=== PATIENT | female | born 1960 | race Hispanic/Latino ===

== ENCOUNTER 2020-07-05 17:08 | Inpatient (IN) | payer BC, OTHER ==
[~2020-07-05] VITALS: Ht 157.5 cm; Wt 135.4 kg
[2020-07-05 17:48] LABS: BASOPHILS % 0.3 % (0.0-1.0); EOSINOPHILS % 0.1 % (0.0-6.0); HEMATOCRIT 37.4 % (34.2-44.1); HEMOGLOBIN 12.3 g/dL (12.0-16.0); LYMPHOCYTES # (AUTO) 0.6 (1.0-3.2); LYMPHOCYTES % 8.6 % (18.0-39.1); MEAN CORPUSCULAR HEMOGLOBIN 27.7 pg (28-32); MEAN CORPUSCULAR HGB CONC 32.9 g/dL (31-35); MEAN CORPUSCULAR VOLUME 84.2 fL (81-99); MONOCYTES # (AUTO) 0.5 (0.2-0.8); MONOCYTES % 6.7 % (4.4-11.3); NEUTROPHILS # (AUTO) 5.8 (2.1-6.9); NEUTROPHILS % 83.2 % (38.7-80.0); PLATELET COUNT 229 x10e3/uL (140-360); RED BLOOD COUNT 4.44 x10e6/uL (3.6-5.1); RED CELL DISTRIBUTION WIDTH 13.9 % (11.7-14.4)
[2020-07-05] MEDS ORDERED: ACETAMINOPHEN 325 MG TAB PO ONE (18:00)
[2020-07-05 18:02] LABS: ALANINE AMINOTRANSFERASE 9 IU/L (0-55); ALBUMIN 2.8 g/dL (3.5-5.0); ALBUMIN/GLOBULIN RATIO 0.7 (0.8-2.0); ALKALINE PHOSPHATASE 79 IU/L (40-150); ANION GAP 16.9 mmol/L (8-16); BLOOD UREA NITROGEN 15 mg/dL (7-26); BUN/CREATININE RATIO 16 (6-25); CALCIUM 8.5 mg/dL (8.4-10.2); CARBON DIOXIDE 20 mmol/L (22-29); CHLORIDE 98 mmol/L (98-107); CREATINE KINASE 25 IU/L (29-168); CREATININE, SERUM 0.91 mg/dL (0.57-1.11); EST GLOMERULAR FILTRATION RATE > 60 ML/MIN (60-); GLUCOSE 114 mg/dL (74-118); POTASSIUM 3.9 mmol/L (3.5-5.1); SODIUM 131 mmol/L (136-145)
[2020-07-05] MEDS ORDERED: PANTOPRAZOLE SO40 MG PO (18:16)
[2020-07-05] MEDS ORDERED: SINGULAIR10 MG PO (18:16)
[2020-07-05] MEDS ORDERED: LASIX20 MG PO (18:16)
[2020-07-05] MEDS ORDERED: LISINOPRIL-HCT1 EACH PO (18:16)
[2020-07-05] MEDS ORDERED: CITALOPRAM HBR20 MG PO (18:16)
[2020-07-05] MEDS ORDERED: DECADRON4 M1 PO (18:16)
[2020-07-05] MEDS ORDERED: ONDANSETRON HCL INJ 2MG/ML 2ML 2 MG/ML VIAL IV PRN (19:15)
[2020-07-05] MEDS ORDERED: ACETAMINOPHEN 325 MG TAB PO PRN (19:15)
[2020-07-05] MEDS ORDERED: REMDESIVIR 200MG/NS 100ML 200 MG in SODIUM CHLORIDE 0.9% 100 ML 100 ML IV ONE (19:30)
[2020-07-05] MEDS: AZITHROMYCIN 500MG/NS 250 ML 250 ML IV SCH (20:48)
[2020-07-05 22:05] VITALS: BP 106/69
[2020-07-05 22:34] VITALS: BP 106/69
[2020-07-05] MEDS ORDERED: PNEUMOCOCCAL VACCINE POLYVALENT 23 MCG/0.5 ML VIAL IM SCH (22:46)
[2020-07-05 23:59] VITALS: BP 106/69
[2020-07-06] VITALS (9 sets, daily range): BP systolic 105–125; BP diastolic 55–92
[2020-07-06 06:22] LABS: BASOPHILS % 0.2 % (0.0-1.0); HEMATOCRIT 41.5 % (34.2-44.1); HEMOGLOBIN 13.3 g/dL (12.0-16.0); LYMPHOCYTES # (AUTO) 0.7 (1.0-3.2); LYMPHOCYTES % 11.4 % (18.0-39.1); MEAN CORPUSCULAR HEMOGLOBIN 27.9 pg (28-32); MONOCYTES # (AUTO) 0.4 (0.2-0.8); MONOCYTES % 7.7 % (4.4-11.3); NEUTROPHILS # (AUTO) 4.6 (2.1-6.9); NEUTROPHILS % 79.8 % (38.7-80.0); PLATELET COUNT 221 x10e3/uL (140-360); RED BLOOD COUNT 4.77 x10e6/uL (3.6-5.1); RED CELL DISTRIBUTION WIDTH 13.7 % (11.7-14.4)
[2020-07-06 06:43] LABS: ALANINE AMINOTRANSFERASE 10 IU/L (0-55); ALBUMIN 2.7 g/dL (3.5-5.0); ALBUMIN/GLOBULIN RATIO 0.6 (0.8-2.0); ALKALINE PHOSPHATASE 80 IU/L (40-150); ANION GAP 17.7 mmol/L (8-16); BLOOD UREA NITROGEN 18 mg/dL (7-26); BUN/CREATININE RATIO 20 (6-25); CARBON DIOXIDE 22 mmol/L (22-29); CHLORIDE 101 mmol/L (98-107); CREATININE, SERUM 0.89 mg/dL (0.57-1.11); EST GLOMERULAR FILTRATION RATE > 60 ML/MIN (60-); GLUCOSE 125 mg/dL (74-118); POTASSIUM 4.7 mmol/L (3.5-5.1); SODIUM 136 mmol/L (136-145)
[2020-07-06] MEDS: ASCORBIC ACID 500 MG TAB PO SCH ×2 (11:38→17:45)
[2020-07-06] MEDS: ZINC SULFATE 220 MG CAP PO SCH (11:38)
[2020-07-06] MEDS: PANTOPRAZOLE SOD 40 MG TABEC PO SCH (11:38)
[2020-07-06] MEDS: CITALOPRAM HYDROBROMIDE 20 MG TAB PO SCH (11:38)
[2020-07-06] MEDS: DEXAMETHASONE SOD PHOS INJ 4 MG/ML VIAL IV SCH (11:38)
[2020-07-06] MEDS: ENOXAPARIN SOD INJ 40 MG/0.4 ML SYR SC SCH (17:45)
[2020-07-06] MEDS ORDERED: SODIUM CHLORIDE 0.9% 250ML 250 ML ONE (18:10)
[2020-07-06] MEDS: REMDESIVIR 100MG/NS 100ML 100 MG IV SCH (18:32)
[2020-07-06] MEDS: AZITHROMYCIN 500MG/NS 250 ML 250 ML IV SCH (19:59)
[2020-07-06] MEDS: MONTELUKAST SODIUM 10 MG TAB PO SCH (19:59)
[2020-07-06] MEDS: LISINOPRIL 10 MG TAB PO SCH (20:00)
[2020-07-07] VITALS (7 sets, daily range): BP systolic 93–119; BP diastolic 53–70
[2020-07-07] MEDS: DEXAMETHASONE SOD PHOS INJ 4 MG/ML VIAL IV SCH (09:27)
[2020-07-07] MEDS: ZINC SULFATE 220 MG CAP PO SCH (09:27)
[2020-07-07] MEDS: PANTOPRAZOLE SOD 40 MG TABEC PO SCH (09:27)
[2020-07-07] MEDS: CITALOPRAM HYDROBROMIDE 20 MG TAB PO SCH (09:27)
[2020-07-07] MEDS: ASCORBIC ACID 500 MG TAB PO SCH ×2 (09:27→16:39)
[2020-07-07] MEDS: ENOXAPARIN SOD INJ 40 MG/0.4 ML SYR SC SCH (16:39)
[2020-07-07] MEDS: REMDESIVIR 100MG/NS 100ML 100 MG IV SCH (20:38)
[2020-07-07] MEDS: LISINOPRIL 10 MG TAB PO SCH (20:38)
[2020-07-07] MEDS: AZITHROMYCIN 500MG/NS 250 ML 250 ML IV SCH (20:38)
[2020-07-07] MEDS: MONTELUKAST SODIUM 10 MG TAB PO SCH (20:39)
[2020-07-07] MEDS: ZOLPIDEM TARTRATE 5 MG TAB PO PRN (20:39)
[2020-07-08] VITALS (10 sets, daily range): BP systolic 104–138; BP diastolic 66–86
[2020-07-08] MEDS ORDERED: CEFEPIME HCL 1 GM VIAL IV SCH (06:00)
[2020-07-08] MEDS: CEFEPIME 1GM/NS 0.9% 50 ML 50 ML IV SCH ×2 (06:09→17:05)
[2020-07-08 06:57] LABS: BASOPHILS % 0.1 % (0.0-1.0); HEMATOCRIT 36.8 % (34.2-44.1); HEMOGLOBIN 11.9 g/dL (12.0-16.0); LYMPHOCYTES # (AUTO) 0.7 (1.0-3.2); MEAN CORPUSCULAR HEMOGLOBIN 27.8 pg (28-32); MEAN CORPUSCULAR HGB CONC 32.3 g/dL (31-35); MONOCYTES # (AUTO) 0.6 (0.2-0.8); MONOCYTES % 7.6 % (4.4-11.3); NEUTROPHILS # (AUTO) 6.7 (2.1-6.9); NEUTROPHILS % 82.5 % (38.7-80.0); PLATELET COUNT 287 x10e3/uL (140-360); RED BLOOD COUNT 4.28 x10e6/uL (3.6-5.1); RED CELL DISTRIBUTION WIDTH 14.2 % (11.7-14.4)
[2020-07-08 07:19] LABS: ALANINE AMINOTRANSFERASE 11 IU/L (0-55); ALBUMIN 2.4 g/dL (3.5-5.0); ALBUMIN/GLOBULIN RATIO 0.6 (0.8-2.0); ALKALINE PHOSPHATASE 67 IU/L (40-150); ANION GAP 14.2 mmol/L (8-16); CALCIUM 8.8 mg/dL (8.4-10.2); CARBON DIOXIDE 24 mmol/L (22-29); CHLORIDE 104 mmol/L (98-107); CREATININE, SERUM 0.79 mg/dL (0.57-1.11); EST GLOMERULAR FILTRATION RATE > 60 ML/MIN (60-); GLUCOSE 135 mg/dL (74-118); POTASSIUM 4.2 mmol/L (3.5-5.1); SODIUM 138 mmol/L (136-145)
[2020-07-08 07:32] LABS: BLOOD UREA NITROGEN 34 mg/dL (7-26); BUN/CREATININE RATIO 43 (6-25)
[2020-07-08] MEDS: ASCORBIC ACID 500 MG TAB PO SCH ×2 (08:42→17:05)
[2020-07-08] MEDS: DEXAMETHASONE SOD PHOS INJ 4 MG/ML VIAL IV SCH (08:42)
[2020-07-08] MEDS: CITALOPRAM HYDROBROMIDE 20 MG TAB PO SCH (08:42)
[2020-07-08] MEDS: PANTOPRAZOLE SOD 40 MG TABEC PO SCH (08:42)
[2020-07-08] MEDS: ZINC SULFATE 220 MG CAP PO SCH (08:42)
[2020-07-08] MEDS: ENOXAPARIN SOD INJ 40 MG/0.4 ML SYR SC SCH (17:05)
[2020-07-08] MEDS ORDERED: SODIUM CHLORIDE 0.9% 50ML 50 ML ONE (17:10)
[2020-07-08] MEDS: AZITHROMYCIN 500MG/NS 250 ML 250 ML IV SCH (19:30)
[2020-07-08] MEDS: LISINOPRIL 10 MG TAB PO SCH (20:00)
[2020-07-08] MEDS: MONTELUKAST SODIUM 10 MG TAB PO SCH (20:00)
[2020-07-08] MEDS: REMDESIVIR 100MG/NS 100ML 100 MG IV SCH (23:08)
[2020-07-09] VITALS (24 sets, daily range): BP systolic 82–133; BP diastolic 40–86
[2020-07-09] MEDS: CEFEPIME 1GM/NS 0.9% 50 ML 50 ML IV SCH ×2 (06:23→17:45)
[2020-07-09 07:19] LABS: BASOPHILS % 0.3 % (0.0-1.0); EOSINOPHILS % 0.3 % (0.0-6.0); HEMATOCRIT 38.6 % (34.2-44.1); HEMOGLOBIN 12.1 g/dL (12.0-16.0); LYMPHOCYTES # (AUTO) 0.8 (1.0-3.2); MEAN CORPUSCULAR HEMOGLOBIN 27.5 pg (28-32); MEAN CORPUSCULAR HGB CONC 31.3 g/dL (31-35); MEAN CORPUSCULAR VOLUME 87.7 fL (81-99); MONOCYTES # (AUTO) 0.6 (0.2-0.8); MONOCYTES % 5.8 % (4.4-11.3); NEUTROPHILS # (AUTO) 8.7 (2.1-6.9); NEUTROPHILS % 82.5 % (38.7-80.0); PLATELET COUNT 234 x10e3/uL (140-360); RED CELL DISTRIBUTION WIDTH 13.9 % (11.7-14.4)
[2020-07-09 07:39] LABS: ALANINE AMINOTRANSFERASE 9 IU/L (0-55); ALBUMIN 2.4 g/dL (3.5-5.0); ALBUMIN/GLOBULIN RATIO 0.6 (0.8-2.0); ALKALINE PHOSPHATASE 68 IU/L (40-150); ANION GAP 14.8 mmol/L (8-16); BLOOD UREA NITROGEN 29 mg/dL (7-26); BUN/CREATININE RATIO 35 (6-25); CALCIUM 8.7 mg/dL (8.4-10.2); CARBON DIOXIDE 23 mmol/L (22-29); CHLORIDE 106 mmol/L (98-107); CREATININE, SERUM 0.83 mg/dL (0.57-1.11); EST GLOMERULAR FILTRATION RATE > 60 ML/MIN (60-); GLUCOSE 122 mg/dL (74-118); POTASSIUM 4.8 mmol/L (3.5-5.1); SODIUM 139 mmol/L (136-145)
[2020-07-09] MEDS: PANTOPRAZOLE SOD 40 MG TABEC PO SCH (08:10)
[2020-07-09] MEDS: DEXAMETHASONE SOD PHOS INJ 4 MG/ML VIAL IV SCH (08:10)
[2020-07-09] MEDS: ZINC SULFATE 220 MG CAP PO SCH (08:10)
[2020-07-09] MEDS: ASCORBIC ACID 500 MG TAB PO SCH ×2 (08:10→17:45)
[2020-07-09] MEDS: CITALOPRAM HYDROBROMIDE 20 MG TAB PO SCH (08:10)
[2020-07-09] MEDS: ENOXAPARIN SOD INJ 40 MG/0.4 ML SYR SC SCH (17:45)
[2020-07-09] MEDS: AZITHROMYCIN 500MG/NS 250 ML 250 ML IV SCH (20:02)
[2020-07-09] MEDS: REMDESIVIR 100MG/NS 100ML 100 MG IV SCH (20:02)
[2020-07-09] MEDS ORDERED: SODIUM CHLORIDE 0.9% 250ML 250 ML ONE (20:09)
[2020-07-09] MEDS: LISINOPRIL 10 MG TAB PO SCH (21:00)
[2020-07-09] MEDS: MONTELUKAST SODIUM 10 MG TAB PO SCH (22:08)
[2020-07-10] VITALS (17 sets, daily range): BP systolic 90–142; BP diastolic 58–84
[2020-07-10] MEDS: CEFEPIME 1GM/NS 0.9% 50 ML 50 ML IV SCH ×2 (06:15→17:57)
[2020-07-10] MEDS: CITALOPRAM HYDROBROMIDE 20 MG TAB PO SCH (08:30)
[2020-07-10] MEDS: DEXAMETHASONE SOD PHOS INJ 4 MG/ML VIAL IV SCH (08:30)
[2020-07-10] MEDS: PANTOPRAZOLE SOD 40 MG TABEC PO SCH (08:30)
[2020-07-10] MEDS: ASCORBIC ACID 500 MG TAB PO SCH ×2 (08:30→17:57)
[2020-07-10] MEDS: ZINC SULFATE 220 MG CAP PO SCH (08:30)
[2020-07-10] MEDS: ENOXAPARIN SOD INJ 40 MG/0.4 ML SYR SC SCH (17:57)
[2020-07-10] MEDS: AZITHROMYCIN 500MG/NS 250 ML 250 ML IV SCH (19:50)
[2020-07-10] MEDS: METHYLPREDNISOLONE SOD SUCC 125 MG/2ML VIAL IV SCH (20:53)
[2020-07-10] MEDS: BENZONATATE 100 MG CAP PO PRN (20:53)
[2020-07-10] MEDS: MONTELUKAST SODIUM 10 MG TAB PO SCH (20:53)
[2020-07-10] MEDS: LISINOPRIL 10 MG TAB PO SCH (22:10)
[2020-07-10] MEDS: ZOLPIDEM TARTRATE 5 MG TAB PO PRN (22:31)
[2020-07-11] VITALS (25 sets, daily range): BP systolic 99–140; BP diastolic 55–80
[2020-07-11] MEDS: METHYLPREDNISOLONE SOD SUCC 125 MG/2ML VIAL IV SCH (04:06)
[2020-07-11 06:29] LABS: BASOPHILS % 0.4 % (0.0-1.0); HEMATOCRIT 34.5 % (34.2-44.1); HEMOGLOBIN 11.4 g/dL (12.0-16.0); LYMPHOCYTES # (AUTO) 0.5 (1.0-3.2); LYMPHOCYTES % 4.4 % (18.0-39.1); MEAN CORPUSCULAR HEMOGLOBIN 27.9 pg (28-32); MEAN CORPUSCULAR VOLUME 84.4 fL (81-99); MONOCYTES # (AUTO) 0.2 (0.2-0.8); MONOCYTES % 1.7 % (4.4-11.3); NEUTROPHILS # (AUTO) 9.8 (2.1-6.9); NEUTROPHILS % 87.3 % (38.7-80.0); PLATELET COUNT 177 x10e3/uL (140-360); RED BLOOD COUNT 4.09 x10e6/uL (3.6-5.1); RED CELL DISTRIBUTION WIDTH 13.8 % (11.7-14.4)
[2020-07-11 07:00] LABS: ANION GAP 13.2 mmol/L (8-16); BLOOD UREA NITROGEN 24 mg/dL (7-26); BUN/CREATININE RATIO 35 (6-25); CALCIUM 8.3 mg/dL (8.4-10.2); CARBON DIOXIDE 24 mmol/L (22-29); CHLORIDE 100 mmol/L (98-107); CREATININE, SERUM 0.68 mg/dL (0.57-1.11); EST GLOMERULAR FILTRATION RATE > 60 ML/MIN (60-); GLUCOSE 189 mg/dL (74-118); POTASSIUM 4.2 mmol/L (3.5-5.1); SODIUM 133 mmol/L (136-145)
[2020-07-11] MEDS: PANTOPRAZOLE SOD 40 MG TABEC PO SCH (08:48)
[2020-07-11] MEDS: DEXAMETHASONE SOD PHOS INJ 4 MG/ML VIAL IV SCH (08:48)
[2020-07-11] MEDS: CEFEPIME 1GM/NS 0.9% 50 ML 50 ML IV SCH ×2 (08:48→18:13)
[2020-07-11] MEDS: CITALOPRAM HYDROBROMIDE 20 MG TAB PO SCH (08:48)
[2020-07-11] MEDS: FUROSEMIDE 20 MG TAB PO SCH (08:48)
[2020-07-11] MEDS: ASCORBIC ACID 500 MG TAB PO SCH ×2 (08:48→18:13)
[2020-07-11] MEDS: ZINC SULFATE 220 MG CAP PO SCH (08:48)
[2020-07-11 15:17] LABS: ABG HCO3 22 mmol/L (22-26); ABG PCO2 31 mmHg (35-45); ABG PH 7.46 (7.35-7.45); ABG PO2 60 mmHg (80-105); ABG TCO2 23
[2020-07-11] MEDS: ENOXAPARIN SOD INJ 40 MG/0.4 ML SYR SC SCH (18:13)
[2020-07-11] MEDS: BENZONATATE 100 MG CAP PO PRN (19:38)
[2020-07-11] MEDS: AZITHROMYCIN 500MG/NS 250 ML 250 ML IV SCH (19:38)
[2020-07-11] MEDS: MONTELUKAST SODIUM 10 MG TAB PO SCH (21:16)
[2020-07-11] MEDS: LISINOPRIL 10 MG TAB PO SCH (21:49)
[2020-07-12] VITALS (13 sets, daily range): BP systolic 93–104; BP diastolic 52–66
[2020-07-12 06:02] LABS: BASOPHILS % 0.2 % (0.0-1.0); HEMATOCRIT 33.6 % (34.2-44.1); LYMPHOCYTES # (AUTO) 0.6 (1.0-3.2); LYMPHOCYTES % 3.4 % (18.0-39.1); MEAN CORPUSCULAR HEMOGLOBIN 27.9 pg (28-32); MEAN CORPUSCULAR HGB CONC 32.7 g/dL (31-35); MEAN CORPUSCULAR VOLUME 85.3 fL (81-99); MONOCYTES # (AUTO) 0.8 (0.2-0.8); MONOCYTES % 4.5 % (4.4-11.3); NEUTROPHILS # (AUTO) 14.8 (2.1-6.9); PLATELET COUNT 169 x10e3/uL (140-360); RED BLOOD COUNT 3.94 x10e6/uL (3.6-5.1); RED CELL DISTRIBUTION WIDTH 13.8 % (11.7-14.4)
[2020-07-12] MEDS: BENZONATATE 100 MG CAP PO PRN (06:06)
[2020-07-12] MEDS: CEFEPIME 1GM/NS 0.9% 50 ML 50 ML IV SCH ×2 (06:08→18:48)
[2020-07-12 06:24] LABS: ALANINE AMINOTRANSFERASE 8 IU/L (0-55); ALBUMIN/GLOBULIN RATIO 0.6 (0.8-2.0); ALKALINE PHOSPHATASE 65 IU/L (40-150); BLOOD UREA NITROGEN 25 mg/dL (7-26); BUN/CREATININE RATIO 37 (6-25); CALCIUM 8.3 mg/dL (8.4-10.2); CARBON DIOXIDE 24 mmol/L (22-29); CHLORIDE 102 mmol/L (98-107); CREATININE, SERUM 0.68 mg/dL (0.57-1.11); EST GLOMERULAR FILTRATION RATE > 60 ML/MIN (60-); GLUCOSE 159 mg/dL (74-118); MAGNESIUM 1.6 MG/DL (1.3-2.1); SODIUM 133 mmol/L (136-145)
[2020-07-12] MEDS: PANTOPRAZOLE SOD 40 MG TABEC PO SCH (08:00)
[2020-07-12] MEDS: CITALOPRAM HYDROBROMIDE 20 MG TAB PO SCH (08:00)
[2020-07-12] MEDS: DEXAMETHASONE SOD PHOS INJ 4 MG/ML VIAL IV SCH (08:00)
[2020-07-12] MEDS: ASCORBIC ACID 500 MG TAB PO SCH ×2 (08:00→18:48)
[2020-07-12] MEDS: FUROSEMIDE 20 MG TAB PO SCH (08:00)
[2020-07-12] MEDS: ZINC SULFATE 220 MG CAP PO SCH (08:00)
[2020-07-12] MEDS: ENOXAPARIN SOD INJ 40 MG/0.4 ML SYR SC SCH (18:48)
[2020-07-12] MEDS: AZITHROMYCIN 500MG/NS 250 ML 250 ML IV SCH (19:27)
[2020-07-12] MEDS: LISINOPRIL 10 MG TAB PO SCH (21:00)
[2020-07-12] MEDS: MONTELUKAST SODIUM 10 MG TAB PO SCH (21:55)
[2020-07-13] VITALS (19 sets, daily range): BP systolic 81–113; BP diastolic 42–70
[2020-07-13 05:19] LABS: BASOPHILS % 0.2 % (0.0-1.0); EOSINOPHILS % 0.1 % (0.0-6.0); HEMATOCRIT 33.7 % (34.2-44.1); HEMOGLOBIN 11.2 g/dL (12.0-16.0); LYMPHOCYTES # (AUTO) 0.6 (1.0-3.2); LYMPHOCYTES % 3.8 % (18.0-39.1); MEAN CORPUSCULAR HEMOGLOBIN 28.1 pg (28-32); MEAN CORPUSCULAR HGB CONC 33.2 g/dL (31-35); MEAN CORPUSCULAR VOLUME 84.7 fL (81-99); MONOCYTES # (AUTO) 0.7 (0.2-0.8); MONOCYTES % 4.5 % (4.4-11.3); NEUTROPHILS # (AUTO) 13.1 (2.1-6.9); NEUTROPHILS % 88.4 % (38.7-80.0); PLATELET COUNT 152 x10e3/uL (140-360); RED BLOOD COUNT 3.98 x10e6/uL (3.6-5.1); RED CELL DISTRIBUTION WIDTH 13.9 % (11.7-14.4)
[2020-07-13] MEDS: CEFEPIME 1GM/NS 0.9% 50 ML 50 ML IV SCH ×2 (05:40→18:51)
[2020-07-13 05:52] LABS: ALANINE AMINOTRANSFERASE 8 IU/L (0-55); ALBUMIN/GLOBULIN RATIO 0.5 (0.8-2.0); ALKALINE PHOSPHATASE 80 IU/L (40-150); ANION GAP 12.2 mmol/L (8-16); BLOOD UREA NITROGEN 32 mg/dL (7-26); BUN/CREATININE RATIO 48 (6-25); CALCIUM 8.5 mg/dL (8.4-10.2); CARBON DIOXIDE 23 mmol/L (22-29); CHLORIDE 102 mmol/L (98-107); CREATININE, SERUM 0.67 mg/dL (0.57-1.11); EST GLOMERULAR FILTRATION RATE > 60 ML/MIN (60-); GLUCOSE 135 mg/dL (74-118); POTASSIUM 4.2 mmol/L (3.5-5.1); SODIUM 133 mmol/L (136-145)
[2020-07-13] MEDS: CITALOPRAM HYDROBROMIDE 20 MG TAB PO SCH (08:51)
[2020-07-13] MEDS: ZINC SULFATE 220 MG CAP PO SCH (08:51)
[2020-07-13] MEDS: PANTOPRAZOLE SOD 40 MG TABEC PO SCH (08:51)
[2020-07-13] MEDS: FUROSEMIDE 20 MG TAB PO SCH (08:51)
[2020-07-13] MEDS: ASCORBIC ACID 500 MG TAB PO SCH ×2 (08:51→17:29)
[2020-07-13] MEDS: AZITHROMYCIN 500MG/NS 250 ML 250 ML IV SCH (20:58)
[2020-07-13] MEDS: MONTELUKAST SODIUM 10 MG TAB PO SCH (21:02)
[2020-07-13] MEDS: LISINOPRIL 10 MG TAB PO SCH (21:02)
[2020-07-14] VITALS (25 sets, daily range): BP systolic 80–110; BP diastolic 46–80
[2020-07-14] MEDS: CEFEPIME 1GM/NS 0.9% 50 ML 50 ML IV SCH ×2 (05:11→17:39)
[2020-07-14 05:27] LABS: BASOPHILS % 0.3 % (0.0-1.0); EOSINOPHILS # (AUTO) 0.3 (0.0-0.4); LYMPHOCYTES # (AUTO) 0.6 (1.0-3.2); LYMPHOCYTES % 4.3 % (18.0-39.1); MEAN CORPUSCULAR HEMOGLOBIN 27.7 pg (28-32); MEAN CORPUSCULAR HGB CONC 32.4 g/dL (31-35); MEAN CORPUSCULAR VOLUME 85.6 fL (81-99); MONOCYTES # (AUTO) 0.5 (0.2-0.8); MONOCYTES % 3.2 % (4.4-11.3); NEUTROPHILS # (AUTO) 12.9 (2.1-6.9); NEUTROPHILS % 86.9 % (38.7-80.0); PLATELET COUNT 114 x10e3/uL (140-360); RED BLOOD COUNT 3.97 x10e6/uL (3.6-5.1); RED CELL DISTRIBUTION WIDTH 14.1 % (11.7-14.4)
[2020-07-14 05:43] LABS: ALBUMIN 1.8 g/dL (3.5-5.0); ALBUMIN/GLOBULIN RATIO 0.5 (0.8-2.0); ALKALINE PHOSPHATASE 78 IU/L (40-150); ANION GAP 14.1 mmol/L (8-16); BLOOD UREA NITROGEN 26 mg/dL (7-26); BUN/CREATININE RATIO 39 (6-25); CALCIUM 8.3 mg/dL (8.4-10.2); CARBON DIOXIDE 24 mmol/L (22-29); CHLORIDE 99 mmol/L (98-107); CREATININE, SERUM 0.66 mg/dL (0.57-1.11); EST GLOMERULAR FILTRATION RATE > 60 ML/MIN (60-); GLUCOSE 127 mg/dL (74-118); MAGNESIUM 1.6 MG/DL (1.3-2.1); POTASSIUM 4.1 mmol/L (3.5-5.1); SODIUM 133 mmol/L (136-145)
[2020-07-14 05:48] LABS: ALANINE AMINOTRANSFERASE < 6 IU/L (0-55)
[2020-07-14] MEDS: ZINC SULFATE 220 MG CAP PO SCH (09:24)
[2020-07-14] MEDS: ASCORBIC ACID 500 MG TAB PO SCH ×2 (09:24→17:39)
[2020-07-14] MEDS: FUROSEMIDE 20 MG TAB PO SCH (09:24)
[2020-07-14] MEDS: PANTOPRAZOLE SOD 40 MG TABEC PO SCH (09:24)
[2020-07-14] MEDS: CITALOPRAM HYDROBROMIDE 20 MG TAB PO SCH (09:24)
[2020-07-14] MEDS ORDERED: LACTATED RINGER'S 1,000 ML ONE (11:12)
[2020-07-14] MEDS: FENTANYL 2000MCG/NS 250 250 ML IV PRN ×2 (11:25→22:40)
[2020-07-14] MEDS: MIDAZOLAM HCL 5MG/ML 10ML VIAL 100 ML IV PRN ×3 (11:28→23:55)
[2020-07-14] MEDS ORDERED: LACTATED RINGER'S 1,000 ML INJ ONE (11:45)
[2020-07-14 12:52] LABS: ABG HCO3 26 mmol/L (22-26); ABG PCO2 52 mmHg (35-45); ABG PH 7.31 (7.35-7.45); ABG PO2 144 mmHg (80-105); ABG TCO2 28
[2020-07-14] MEDS ORDERED: SODIUM CHLORIDE 0.9% 1000ML 1,000 ML ONE (13:30)
[2020-07-14 14:20] LABS: INR 1.31; PARTIAL THROMBOPLASTIN TIME 29.2 seconds (23.8-35.5); PROTHROMBIN TIME 17.2 seconds (11.9-14.5)
[2020-07-14 14:28] LABS: FIBRINOGEN MAIN LAB 423 mg/dL (204-462)
[2020-07-14] MEDS ORDERED: NOREPINEPHRINE 8 MG/D5W 250 ML 250 ML ONE (14:45)
[2020-07-14] MEDS ORDERED: MIDAZOLAM HCL 2 MG/2 ML VIAL ONE (14:57)
[2020-07-14] MEDS ORDERED: ETOMIDATE 2 MG/ML 10 ML INJ IV ONE (14:57)
[2020-07-14] MEDS ORDERED: SUCCINYLCHOLINE CHLORIDE 20 MG/ML 10ML VIAL ONE (14:57)
[2020-07-14] MEDS ORDERED: VECURONIUM BROMIDE FOR INJ 20 MG VIAL ONE (14:57)
[2020-07-14] MEDS ORDERED: WATER STERILE 10 ML VIAL ONE (14:57)
[2020-07-14 17:56] LABS: HEMATOCRIT 35.3 % (34.2-44.1); HEMOGLOBIN 11.5 g/dL (12.0-16.0); MEAN CORPUSCULAR HEMOGLOBIN 27.8 pg (28-32); MEAN CORPUSCULAR HGB CONC 32.6 g/dL (31-35); MEAN CORPUSCULAR VOLUME 85.3 fL (81-99); PLATELET COUNT 134 x10e3/uL (140-360); RED BLOOD COUNT 4.14 x10e6/uL (3.6-5.1); RED CELL DISTRIBUTION WIDTH 14.2 % (11.7-14.4)
[2020-07-14] MEDS: AZITHROMYCIN 500MG/NS 250 ML 250 ML IV SCH (20:38)
[2020-07-14 21:11] LABS: BAND NEUTROPHILS % (MANUAL) 1 %; LYMPHOCYTES % (MANUAL) 3 % (19-48); MONOCYTES % (MANUAL) 5 % (3.4-9.0); NEUTROPHILS % (MANUAL) 91 % (40-74)
[2020-07-14 21:15] LABS: PLATELET ESTIMATE SLIGHTLY DECREASED
[2020-07-14 21:16] LABS: PLATELET MORPHOLOGY COMMENT FEW GIANT
[2020-07-14 21:17] LABS: RBC MORPHOLOGY COMMENT NORMAL
[2020-07-15] VITALS (23 sets, daily range): BP systolic 94–141; BP diastolic 51–76
[2020-07-15 05:40] LABS: BASOPHILS # (AUTO) 0.1 (0.0-0.1); BASOPHILS % 0.3 % (0.0-1.0); EOSINOPHILS # (AUTO) 0.2 (0.0-0.4); EOSINOPHILS % 0.7 % (0.0-6.0); HEMATOCRIT 38.8 % (34.2-44.1); HEMOGLOBIN 12.2 g/dL (12.0-16.0); LYMPHOCYTES # (AUTO) 0.9 (1.0-3.2); LYMPHOCYTES % 3.3 % (18.0-39.1); MEAN CORPUSCULAR HEMOGLOBIN 27.7 pg (28-32); MEAN CORPUSCULAR HGB CONC 31.4 g/dL (31-35); MONOCYTES % 3.5 % (4.4-11.3); NEUTROPHILS # (AUTO) 24.3 (2.1-6.9); NEUTROPHILS % 88.4 % (38.7-80.0); PLATELET COUNT 159 x10e3/uL (140-360); RED BLOOD COUNT 4.41 x10e6/uL (3.6-5.1); RED CELL DISTRIBUTION WIDTH 14.2 % (11.7-14.4)
[2020-07-15 06:02] LABS: ALBUMIN 1.9 g/dL (3.5-5.0); ALBUMIN/GLOBULIN RATIO 0.4 (0.8-2.0); ANION GAP 18.2 mmol/L (8-16); CALCIUM 8.5 mg/dL (8.4-10.2); CREATININE, SERUM 1.02 mg/dL (0.57-1.11); POTASSIUM 4.2 mmol/L (3.5-5.1)
[2020-07-15] MEDS: CEFEPIME 1GM/NS 0.9% 50 ML 50 ML IV SCH ×2 (06:02→17:38)
[2020-07-15] MEDS: MIDAZOLAM HCL 5MG/ML 10ML VIAL 100 ML IV PRN ×4 (06:03→20:00)
[2020-07-15] MEDS: FENTANYL 2000MCG/NS 250 250 ML IV PRN ×3 (06:05→16:43)
[2020-07-15 06:44] LABS: FERRITIN 1798.79 ng/mL (4.63-204.00)
[2020-07-15] MEDS: ZINC SULFATE 220 MG CAP PO SCH (08:55)
[2020-07-15] MEDS: ASCORBIC ACID 500 MG TAB PO SCH ×2 (08:55→17:00)
[2020-07-15] MEDS: CITALOPRAM HYDROBROMIDE 20 MG TAB PO SCH (08:55)
[2020-07-15] MEDS ORDERED: NOREPINEPHRINE 8 MG/D5W 250 ML 250 ML ONE (08:58)
[2020-07-15] MEDS ORDERED: PANTOPRAZOLE 40 MG 10ML VIAL IV SCH (09:00)
[2020-07-15 10:51] LABS: ABG HCO3 22 mmol/L (22-26); ABG PCO2 42 mmHg (35-45); ABG PH 7.32 (7.35-7.45); ABG PO2 185 mmHg (80-105)
[2020-07-15 10:52] LABS: ABG TCO2 23
[2020-07-15] MEDS ORDERED: LACTATED RINGER'S 500 ML INJ ONE (11:15)
[2020-07-15] MEDS ORDERED: VANCOMYCIN 1GM/NS 250 ML 250 ML IV ONE (12:00)
[2020-07-15] MEDS: NOREPINEPHRINE 8 MG/D5W 250 ML 250 ML IV SCH (13:27)
[2020-07-15] MEDS ORDERED: SODIUM BICARBONATE 8.4% SYRING 100 ML ONE (15:57)
[2020-07-15] MEDS ORDERED: EPINEPHRINE HCL SYRINGE ONE (15:57)
[2020-07-15] MEDS: VASOPRESSIN 60 UNIT in DEXTROSE 5% 50ML 57 ML IV SCH (16:17)
[2020-07-15] MEDS ORDERED: SODIUM CHLORIDE 0.9% 1000ML 1,000 ML IV SCH (16:30)
[2020-07-15 16:42] LABS: ABG HCO3 22 mmol/L (22-26); ABG PCO2 44 mmHg (35-45); ABG PH 7.31 (7.35-7.45); ABG PO2 72 mmHg (80-105); ABG TCO2 24
[2020-07-15] MEDS ORDERED: EPINEPHRINE HCL SYRINGE IV ONE (17:00)
[2020-07-15] MEDS ORDERED: SODIUM BICARBONATE 8.4% INJ 50 ML SYR IV ONE (17:00)
[2020-07-15] MEDS: FAMOTIDINE 20 MG/2 ML VIAL IV SCH (17:00)
[2020-07-15] MEDS: FONDAPARINUX SODIUM 2.5 MG/0.5 ML SYR SQ SCH (17:38)
[2020-07-16] VITALS (24 sets, daily range): BP systolic 99–131; BP diastolic 59–89
[2020-07-16] MEDS: FENTANYL 2000MCG/NS 250 250 ML IV PRN ×4 (03:30→23:13)
[2020-07-16] MEDS: NOREPINEPHRINE 8 MG/D5W 250 ML 250 ML IV SCH ×3 (03:30→23:00)
[2020-07-16] MEDS: VASOPRESSIN 60 UNIT in DEXTROSE 5% 50ML 57 ML IV SCH (03:31)
[2020-07-16] MEDS: MIDAZOLAM HCL 5MG/ML 10ML VIAL 100 ML IV PRN ×5 (03:31→22:06)
[2020-07-16 04:48] LABS: BASOPHILS # (AUTO) 0.1 (0.0-0.1); BASOPHILS % 0.3 % (0.0-1.0); EOSINOPHILS # (AUTO) 0.2 (0.0-0.4); EOSINOPHILS % 0.9 % (0.0-6.0); HEMATOCRIT 33.6 % (34.2-44.1); HEMOGLOBIN 10.8 g/dL (12.0-16.0); LYMPHOCYTES # (AUTO) 0.5 (1.0-3.2); LYMPHOCYTES % 2.1 % (18.0-39.1); MEAN CORPUSCULAR HEMOGLOBIN 27.8 pg (28-32); MEAN CORPUSCULAR HGB CONC 32.1 g/dL (31-35); MEAN CORPUSCULAR VOLUME 86.4 fL (81-99); MONOCYTES # (AUTO) 0.8 (0.2-0.8); MONOCYTES % 3.6 % (4.4-11.3); NEUTROPHILS # (AUTO) 19.6 (2.1-6.9); NEUTROPHILS % 91.3 % (38.7-80.0); PLATELET COUNT 147 x10e3/uL (140-360); RED BLOOD COUNT 3.89 x10e6/uL (3.6-5.1); RED CELL DISTRIBUTION WIDTH 14.5 % (11.7-14.4)
[2020-07-16 05:11] LABS: ALANINE AMINOTRANSFERASE 13 IU/L (0-55); ALBUMIN 1.4 g/dL (3.5-5.0); ALBUMIN/GLOBULIN RATIO 0.3 (0.8-2.0); ALKALINE PHOSPHATASE 91 IU/L (40-150); BLOOD UREA NITROGEN 16 mg/dL (7-26); BUN/CREATININE RATIO 24 (6-25); CALCIUM 7.9 mg/dL (8.4-10.2); CARBON DIOXIDE 25 mmol/L (22-29); CHLORIDE 98 mmol/L (98-107); CREATININE, SERUM 0.67 mg/dL (0.57-1.11); EST GLOMERULAR FILTRATION RATE > 60 ML/MIN (60-); GLUCOSE 237 mg/dL (74-118); MAGNESIUM 1.4 MG/DL (1.3-2.1); PHOSPHORUS 2.2 MG/DL (2.3-4.7); SODIUM 134 mmol/L (136-145)
[2020-07-16] MEDS: CEFEPIME 1GM/NS 0.9% 50 ML 50 ML IV SCH ×2 (05:19→18:15)
[2020-07-16] MEDS: CITALOPRAM HYDROBROMIDE 20 MG TAB PO SCH (08:27)
[2020-07-16] MEDS: FAMOTIDINE 20 MG/2 ML VIAL IV SCH ×2 (08:27→18:14)
[2020-07-16] MEDS: ZINC SULFATE 220 MG CAP PO SCH (08:27)
[2020-07-16] MEDS: ASCORBIC ACID 500 MG TAB PO SCH ×2 (08:27→18:14)
[2020-07-16] MEDS: FONDAPARINUX SODIUM 2.5 MG/0.5 ML SYR SQ SCH (08:28)
[2020-07-16 09:00] LABS: ABG HCO3 28 mmol/L (22-26); ABG PCO2 52 mmHg (35-45); ABG PH 7.35 (7.35-7.45); ABG PO2 138 mmHg (80-105); ABG TCO2 30
[2020-07-16] MEDS ORDERED: LACTULOSE SYRUP 20 GM/30 ML UDC PO PRN (13:00)
[2020-07-16] MEDS ORDERED: METOCLOPRAMIDE HCL 10 MG/2ML VIAL IV ONE (13:30)
[2020-07-16] MEDS ORDERED: CITRATE OF MAGNESIA 300ML BOTTLE PO ONE (13:30)
[2020-07-16] MEDS ORDERED: LACTATED RINGER'S 1,000 ML INJ ONE (15:00)
[2020-07-16] MEDS: VANCOMYCIN 1GM/NS 250 ML 250 ML IV SCH (15:10)
[2020-07-16] MEDS ORDERED: VANCOMYCIN 1GM/NS 250 ML 250 ML IV SCH (16:00)
[2020-07-16] MEDS: DOCUSATE SODIUM LIQD 100 MG/10 ML UDC NG SCH (18:14)
[2020-07-16 20:03] LABS: ABG HCO3 28 mmol/L (22-26); ABG PCO2 49 mmHg (35-45); ABG PH 7.37 (7.35-7.45); ABG PO2 101 mmHg (80-105); ABG TCO2 29
[2020-07-16] MEDS ORDERED: HEPARIN SOD/SOD CHLORIDE 1,000 ML ONE (23:52)
[2020-07-17] VITALS (25 sets, daily range): BP systolic 99–132; BP diastolic 57–89
[2020-07-17] MEDS: VANCOMYCIN 1GM/NS 250 ML 250 ML IV SCH ×2 (02:10→14:09)
[2020-07-17] MEDS: MIDAZOLAM HCL 5MG/ML 10ML VIAL 100 ML IV PRN ×2 (02:40→23:06)
[2020-07-17] MEDS: CEFEPIME 1GM/NS 0.9% 50 ML 50 ML IV SCH ×2 (05:13→17:20)
[2020-07-17] MEDS: NOREPINEPHRINE 8 MG/D5W 250 ML 250 ML IV SCH ×2 (05:19→23:07)
[2020-07-17] MEDS: FENTANYL 2000MCG/NS 250 250 ML IV PRN ×2 (05:20→23:05)
[2020-07-17 05:48] LABS: BASOPHILS % 0.2 % (0.0-1.0); EOSINOPHILS # (AUTO) 0.3 (0.0-0.4); EOSINOPHILS % 2.4 % (0.0-6.0); HEMATOCRIT 31.8 % (34.2-44.1); LYMPHOCYTES # (AUTO) 0.5 (1.0-3.2); LYMPHOCYTES % 3.7 % (18.0-39.1); MEAN CORPUSCULAR HEMOGLOBIN 27.5 pg (28-32); MEAN CORPUSCULAR HGB CONC 31.4 g/dL (31-35); MEAN CORPUSCULAR VOLUME 87.6 fL (81-99); MONOCYTES # (AUTO) 0.6 (0.2-0.8); MONOCYTES % 3.9 % (4.4-11.3); NEUTROPHILS # (AUTO) 12.3 (2.1-6.9); NEUTROPHILS % 87.7 % (38.7-80.0); PLATELET COUNT 178 x10e3/uL (140-360); RED BLOOD COUNT 3.63 x10e6/uL (3.6-5.1); RED CELL DISTRIBUTION WIDTH 14.4 % (11.7-14.4)
[2020-07-17 06:20] LABS: ALANINE AMINOTRANSFERASE 46 IU/L (0-55); ALBUMIN 1.4 g/dL (3.5-5.0); ALBUMIN/GLOBULIN RATIO 0.3 (0.8-2.0); ANION GAP 12.2 mmol/L (8-16); BLOOD UREA NITROGEN 13 mg/dL (7-26); BUN/CREATININE RATIO 22 (6-25); CALCIUM 8.6 mg/dL (8.4-10.2); CARBON DIOXIDE 29 mmol/L (22-29); CHLORIDE 97 mmol/L (98-107); CREATININE, SERUM 0.58 mg/dL (0.57-1.11); EST GLOMERULAR FILTRATION RATE > 60 ML/MIN (60-); GLUCOSE 187 mg/dL (74-118); POTASSIUM 4.2 mmol/L (3.5-5.1); SODIUM 134 mmol/L (136-145)
[2020-07-17 07:09] LABS: ALKALINE PHOSPHATASE 92 IU/L (40-150)
[2020-07-17 08:48] LABS: ABG HCO3 30 mmol/L (22-26); ABG PCO2 54 mmHg (35-45); ABG PH 7.35 (7.35-7.45); ABG PO2 72 mmHg (80-105); ABG TCO2 31
[2020-07-17] MEDS: FONDAPARINUX SODIUM 2.5 MG/0.5 ML SYR SQ SCH (09:00)
[2020-07-17] MEDS: DOCUSATE SODIUM LIQD 100 MG/10 ML UDC NG SCH ×2 (09:28→17:20)
[2020-07-17] MEDS: FAMOTIDINE 20 MG/2 ML VIAL IV SCH ×2 (09:28→17:20)
[2020-07-17] MEDS: ASCORBIC ACID 500 MG TAB PO SCH ×2 (09:28→17:20)
[2020-07-17] MEDS: CITALOPRAM HYDROBROMIDE 20 MG TAB PO SCH (09:28)
[2020-07-17] MEDS: ZINC SULFATE 220 MG CAP PO SCH (09:28)
[2020-07-17] MEDS: VASOPRESSIN 60 UNIT in DEXTROSE 5% 50ML 57 ML IV SCH (13:00)
[2020-07-17] MEDS ORDERED: MIDAZOLAM HCL 5MG/ML 10ML VIAL 100 ML BAG IV ONE (13:44)
[2020-07-17] MEDS ORDERED: FENTANYL 2,000 MCG/250 ML BAG ONE (13:44)
[2020-07-17] MEDS: ENOXAPARIN SOD INJ 40 MG/0.4 ML SYR SC SCH (13:55)
[2020-07-18] VITALS (29 sets, daily range): BP systolic 99–134; BP diastolic 57–89
[2020-07-18] MEDS: FENTANYL 2000MCG/NS 250 250 ML IV PRN ×3 (02:08→23:07)
[2020-07-18] MEDS: VANCOMYCIN 1GM/NS 250 ML 250 ML IV SCH ×2 (02:09→14:51)
[2020-07-18] MEDS: NOREPINEPHRINE 8 MG/D5W 250 ML 250 ML IV SCH (02:09)
[2020-07-18] MEDS: VASOPRESSIN 60 UNIT in DEXTROSE 5% 50ML 57 ML IV SCH (03:54)
[2020-07-18] MEDS: MIDAZOLAM HCL 5MG/ML 10ML VIAL 100 ML IV PRN ×3 (04:37→23:07)
[2020-07-18 05:19] LABS: BASOPHILS % 0.1 % (0.0-1.0); EOSINOPHILS # (AUTO) 0.3 (0.0-0.4); EOSINOPHILS % 3.7 % (0.0-6.0); HEMATOCRIT 28.4 % (34.2-44.1); HEMOGLOBIN 8.9 g/dL (12.0-16.0); LYMPHOCYTES # (AUTO) 0.5 (1.0-3.2); LYMPHOCYTES % 6.3 % (18.0-39.1); MEAN CORPUSCULAR HEMOGLOBIN 27.1 pg (28-32); MEAN CORPUSCULAR HGB CONC 31.3 g/dL (31-35); MEAN CORPUSCULAR VOLUME 86.6 fL (81-99); MONOCYTES # (AUTO) 0.4 (0.2-0.8); MONOCYTES % 4.3 % (4.4-11.3); NEUTROPHILS # (AUTO) 7.2 (2.1-6.9); NEUTROPHILS % 83.7 % (38.7-80.0); PLATELET COUNT 156 x10e3/uL (140-360); RED BLOOD COUNT 3.28 x10e6/uL (3.6-5.1); RED CELL DISTRIBUTION WIDTH 14.6 % (11.7-14.4)
[2020-07-18 05:39] LABS: ALANINE AMINOTRANSFERASE 73 IU/L (0-55); ALBUMIN 1.3 g/dL (3.5-5.0); ALBUMIN/GLOBULIN RATIO 0.3 (0.8-2.0); ALKALINE PHOSPHATASE 98 IU/L (40-150); ANION GAP 11.8 mmol/L (8-16); BLOOD UREA NITROGEN 15 mg/dL (7-26); BUN/CREATININE RATIO 29 (6-25); CALCIUM 7.9 mg/dL (8.4-10.2); CARBON DIOXIDE 29 mmol/L (22-29); CHLORIDE 96 mmol/L (98-107); CREATININE, SERUM 0.52 mg/dL (0.57-1.11); EST GLOMERULAR FILTRATION RATE > 60 ML/MIN (60-); GLUCOSE 155 mg/dL (74-118); POTASSIUM 3.8 mmol/L (3.5-5.1); SODIUM 133 mmol/L (136-145)
[2020-07-18] MEDS: CEFEPIME 1GM/NS 0.9% 50 ML 50 ML IV SCH ×2 (06:58→17:15)
[2020-07-18 08:29] LABS: ABG HCO3 33 mmol/L (22-26); ABG PCO2 51 mmHg (35-45); ABG PH 7.42 (7.35-7.45); ABG PO2 85 mmHg (80-105)
[2020-07-18 08:30] LABS: ABG TCO2 34
[2020-07-18] MEDS: DOCUSATE SODIUM LIQD 100 MG/10 ML UDC NG SCH ×2 (10:02→17:15)
[2020-07-18] MEDS: FAMOTIDINE 20 MG/2 ML VIAL IV SCH ×2 (10:02→17:15)
[2020-07-18] MEDS: ASCORBIC ACID 500 MG TAB PO SCH ×2 (10:03→17:15)
[2020-07-18] MEDS: CITALOPRAM HYDROBROMIDE 20 MG TAB PO SCH (10:03)
[2020-07-18] MEDS: ZINC SULFATE 220 MG CAP PO SCH (10:04)
[2020-07-18] MEDS: ENOXAPARIN SOD INJ 40 MG/0.4 ML SYR SC SCH (10:04)
[2020-07-18] MEDS ORDERED: CITRATE OF MAGNESIA 300ML BOTTLE PO NR (12:30)
[2020-07-18 16:21] LABS: ABG HCO3 30 mmol/L (22-26); ABG PCO2 41 mmHg (35-45); ABG PH 7.48 (7.35-7.45); ABG PO2 92 mmHg (80-105); ABG TCO2 31
[2020-07-19] VITALS (28 sets, daily range): BP systolic 97–142; BP diastolic 51–89
[2020-07-19] MEDS: VANCOMYCIN 1GM/NS 250 ML 250 ML IV SCH ×2 (02:30→15:44)
[2020-07-19] MEDS: MIDAZOLAM HCL 5MG/ML 10ML VIAL 100 ML IV PRN ×2 (04:25→20:32)
[2020-07-19] MEDS: CEFEPIME 1GM/NS 0.9% 50 ML 50 ML IV SCH ×2 (05:24→17:26)
[2020-07-19] MEDS: FENTANYL 2000MCG/NS 250 250 ML IV PRN ×2 (05:42→20:31)
[2020-07-19 05:59] LABS: ALANINE AMINOTRANSFERASE 95 IU/L (0-55); ALBUMIN 1.2 g/dL (3.5-5.0); ALBUMIN/GLOBULIN RATIO 0.3 (0.8-2.0); ALKALINE PHOSPHATASE 116 IU/L (40-150); ANION GAP 12.6 mmol/L (8-16); BLOOD UREA NITROGEN 15 mg/dL (7-26); BUN/CREATININE RATIO 33 (6-25); CALCIUM 7.6 mg/dL (8.4-10.2); CARBON DIOXIDE 29 mmol/L (22-29); CHLORIDE 96 mmol/L (98-107); CREATININE, SERUM 0.45 mg/dL (0.57-1.11); EST GLOMERULAR FILTRATION RATE > 60 ML/MIN (60-); GLUCOSE 107 mg/dL (74-118); POTASSIUM 3.6 mmol/L (3.5-5.1); SODIUM 134 mmol/L (136-145)
[2020-07-19 06:01] LABS: BASOPHILS % 0.3 % (0.0-1.0); EOSINOPHILS # (AUTO) 0.3 (0.0-0.4); EOSINOPHILS % 3.7 % (0.0-6.0); HEMATOCRIT 27.6 % (34.2-44.1); HEMOGLOBIN 8.7 g/dL (12.0-16.0); LYMPHOCYTES # (AUTO) 0.5 (1.0-3.2); LYMPHOCYTES % 5.8 % (18.0-39.1); MEAN CORPUSCULAR HEMOGLOBIN 27.6 pg (28-32); MEAN CORPUSCULAR HGB CONC 31.5 g/dL (31-35); MEAN CORPUSCULAR VOLUME 87.6 fL (81-99); MONOCYTES # (AUTO) 0.3 (0.2-0.8); MONOCYTES % 3.7 % (4.4-11.3); NEUTROPHILS # (AUTO) 6.4 (2.1-6.9); NEUTROPHILS % 82.8 % (38.7-80.0); PLATELET COUNT 156 x10e3/uL (140-360); RED BLOOD COUNT 3.15 x10e6/uL (3.6-5.1); RED CELL DISTRIBUTION WIDTH 14.7 % (11.7-14.4)
[2020-07-19] MEDS: DOCUSATE SODIUM LIQD 100 MG/10 ML UDC NG SCH ×2 (08:36→17:25)
[2020-07-19] MEDS: FAMOTIDINE 20 MG/2 ML VIAL IV SCH ×2 (08:36→17:25)
[2020-07-19] MEDS: ENOXAPARIN SOD INJ 40 MG/0.4 ML SYR SC SCH (08:37)
[2020-07-19] MEDS: ASCORBIC ACID 500 MG TAB PO SCH ×2 (08:37→17:25)
[2020-07-19] MEDS: ZINC SULFATE 220 MG CAP PO SCH (08:37)
[2020-07-19] MEDS: CITALOPRAM HYDROBROMIDE 20 MG TAB PO SCH (08:37)
[2020-07-19 09:03] LABS: ABG PCO2 48 mmHg (35-45); ABG PH 7.45 (7.35-7.45)
[2020-07-19 09:04] LABS: ABG HCO3 33 mmol/L (22-26); ABG PO2 74 mmHg (80-105); ABG TCO2 35
[2020-07-19] MEDS ORDERED: ALBUMIN 25% 25GM 100ML 0.25 GM/ML BTL IV SCH (10:30)
[2020-07-19] MEDS: ALBUMIN 25% 25GM 100ML 100 ML IV SCH ×2 (11:00→17:26)
[2020-07-19] MEDS: FUROSEMIDE INJ 10 MG/ML 4 ML VIAL IV SCH ×2 (11:00→21:17)
[2020-07-19] MEDS: VASOPRESSIN 60 UNIT in DEXTROSE 5% 50ML 57 ML IV SCH (13:00)
[2020-07-19] MEDS: NOREPINEPHRINE 8 MG/D5W 250 ML 250 ML IV SCH (13:00)
[2020-07-19] MEDS: ENOXAPARIN SOD INJ 120 MG/0.8 ML SYR SC SCH (15:44)
[2020-07-20] VITALS (29 sets, daily range): BP systolic 93–147; BP diastolic 52–110
[2020-07-20] MEDS: MIDAZOLAM HCL 5MG/ML 10ML VIAL 100 ML IV PRN ×3 (01:08→22:00)
[2020-07-20] MEDS: VASOPRESSIN 60 UNIT in DEXTROSE 5% 50ML 57 ML IV SCH (01:51)
[2020-07-20] MEDS: ALBUMIN 25% 25GM 100ML 100 ML IV SCH (02:05)
[2020-07-20] MEDS: FENTANYL 2000MCG/NS 250 250 ML IV PRN ×2 (02:26→22:00)
[2020-07-20] MEDS: VANCOMYCIN 1GM/NS 250 ML 250 ML IV SCH ×2 (02:39→16:59)
[2020-07-20 05:53] LABS: BASOPHILS % 0.1 % (0.0-1.0); EOSINOPHILS # (AUTO) 0.4 (0.0-0.4); EOSINOPHILS % 4.4 % (0.0-6.0); HEMATOCRIT 26.2 % (34.2-44.1); HEMOGLOBIN 8.3 g/dL (12.0-16.0); LYMPHOCYTES # (AUTO) 0.5 (1.0-3.2); MEAN CORPUSCULAR HEMOGLOBIN 27.5 pg (28-32); MEAN CORPUSCULAR HGB CONC 31.7 g/dL (31-35); MEAN CORPUSCULAR VOLUME 86.8 fL (81-99); MONOCYTES # (AUTO) 0.4 (0.2-0.8); MONOCYTES % 4.5 % (4.4-11.3); NEUTROPHILS # (AUTO) 6.7 (2.1-6.9); NEUTROPHILS % 80.9 % (38.7-80.0); PLATELET COUNT 149 x10e3/uL (140-360); RED BLOOD COUNT 3.02 x10e6/uL (3.6-5.1); RED CELL DISTRIBUTION WIDTH 14.9 % (11.7-14.4)
[2020-07-20] MEDS: ENOXAPARIN SOD INJ 120 MG/0.8 ML SYR SC SCH ×2 (06:05→16:59)
[2020-07-20] MEDS: CEFEPIME 1GM/NS 0.9% 50 ML 50 ML IV SCH ×2 (06:06→16:59)
[2020-07-20 06:15] LABS: ALANINE AMINOTRANSFERASE 85 IU/L (0-55); ALBUMIN 2.4 g/dL (3.5-5.0); ALBUMIN/GLOBULIN RATIO 0.8 (0.8-2.0); ALKALINE PHOSPHATASE 124 IU/L (40-150); ANION GAP 16.8 mmol/L (8-16); BLOOD UREA NITROGEN 11 mg/dL (7-26); BUN/CREATININE RATIO 21 (6-25); CALCIUM 8.1 mg/dL (8.4-10.2); CARBON DIOXIDE 35 mmol/L (22-29); CHLORIDE 86 mmol/L (98-107); CREATININE, SERUM 0.52 mg/dL (0.57-1.11); EST GLOMERULAR FILTRATION RATE > 60 ML/MIN (60-); GLUCOSE 109 mg/dL (74-118); MAGNESIUM 1.8 MG/DL (1.3-2.1); SODIUM 135 mmol/L (136-145)
[2020-07-20 06:19] LABS: POTASSIUM 2.8 mmol/L (3.5-5.1)
[2020-07-20] MEDS ORDERED: POTASSIUM CHLORIDE 20MEQ/100ML 200 ML IV ONE ×2 (07:30→19:00)
[2020-07-20] MEDS: DOCUSATE SODIUM LIQD 100 MG/10 ML UDC NG SCH ×2 (08:44→16:59)
[2020-07-20] MEDS: ZINC SULFATE 220 MG CAP PO SCH (08:44)
[2020-07-20] MEDS: FAMOTIDINE 20 MG/2 ML VIAL IV SCH ×2 (08:44→16:59)
[2020-07-20] MEDS: ASCORBIC ACID 500 MG TAB PO SCH ×2 (08:44→16:59)
[2020-07-20] MEDS: CITALOPRAM HYDROBROMIDE 20 MG TAB PO SCH (08:44)
[2020-07-20 11:37] LABS: ABG PCO2 53 mmHg (35-45); ABG PH 7.48 (7.35-7.45); ABG PO2 69 mmHg (80-105)
[2020-07-20 11:38] LABS: ABG HCO3 40 mmol/L (22-26); ABG TCO2 41
[2020-07-20] MEDS: NOREPINEPHRINE 8 MG/D5W 250 ML 250 ML IV SCH (13:00)
[2020-07-20 15:15] LABS: AMYLASE 37 U/L (25-125); LIPASE 35 U/L (8-78)
[2020-07-20 15:18] LABS: BILIRUBIN,DIRECT 3.8 mg/dL (0.0-0.5)
[2020-07-21] VITALS (23 sets, daily range): BP systolic 87–134; BP diastolic 46–83
[2020-07-21] MEDS: VANCOMYCIN 1GM/NS 250 ML 250 ML IV SCH ×2 (02:08→14:12)
[2020-07-21] MEDS: MIDAZOLAM HCL 5MG/ML 10ML VIAL 100 ML IV PRN ×3 (04:00→17:12)
[2020-07-21 05:33] LABS: BASOPHILS % 0.3 % (0.0-1.0); EOSINOPHILS # (AUTO) 0.4 (0.0-0.4); EOSINOPHILS % 3.8 % (0.0-6.0); HEMATOCRIT 27.3 % (34.2-44.1); HEMOGLOBIN 8.6 g/dL (12.0-16.0); LYMPHOCYTES # (AUTO) 0.7 (1.0-3.2); LYMPHOCYTES % 7.2 % (18.0-39.1); MEAN CORPUSCULAR HEMOGLOBIN 27.3 pg (28-32); MEAN CORPUSCULAR HGB CONC 31.5 g/dL (31-35); MEAN CORPUSCULAR VOLUME 86.7 fL (81-99); MONOCYTES # (AUTO) 0.5 (0.2-0.8); MONOCYTES % 4.7 % (4.4-11.3); NEUTROPHILS # (AUTO) 8.2 (2.1-6.9); NEUTROPHILS % 80.1 % (38.7-80.0); PLATELET COUNT 192 x10e3/uL (140-360); RED BLOOD COUNT 3.15 x10e6/uL (3.6-5.1); RED CELL DISTRIBUTION WIDTH 15.3 % (11.7-14.4)
[2020-07-21 06:05] LABS: ALANINE AMINOTRANSFERASE 80 IU/L (0-55); ALBUMIN/GLOBULIN RATIO 0.6 (0.8-2.0); ALKALINE PHOSPHATASE 129 IU/L (40-150); ANION GAP 14.8 mmol/L (8-16); BLOOD UREA NITROGEN 14 mg/dL (7-26); BUN/CREATININE RATIO 29 (6-25); CALCIUM 7.8 mg/dL (8.4-10.2); CARBON DIOXIDE 33 mmol/L (22-29); CHLORIDE 91 mmol/L (98-107); CREATININE, SERUM 0.49 mg/dL (0.57-1.11); EST GLOMERULAR FILTRATION RATE > 60 ML/MIN (60-); GLUCOSE 87 mg/dL (74-118); SODIUM 135 mmol/L (136-145)
[2020-07-21 06:07] LABS: POTASSIUM 3.8 mmol/L (3.5-5.1)
[2020-07-21] MEDS: CEFEPIME 1GM/NS 0.9% 50 ML 50 ML IV SCH ×2 (06:30→17:15)
[2020-07-21] MEDS: ENOXAPARIN SOD INJ 120 MG/0.8 ML SYR SC SCH ×2 (06:30→17:24)
[2020-07-21] MEDS: FENTANYL 2000MCG/NS 250 250 ML IV PRN ×2 (06:32→13:33)
[2020-07-21] MEDS: FAMOTIDINE 20 MG/2 ML VIAL IV SCH ×2 (08:45→17:24)
[2020-07-21] MEDS: ASCORBIC ACID 500 MG TAB PO SCH ×2 (08:45→17:24)
[2020-07-21] MEDS: DOCUSATE SODIUM LIQD 100 MG/10 ML UDC NG SCH ×2 (08:45→17:24)
[2020-07-21] MEDS: CITALOPRAM HYDROBROMIDE 20 MG TAB PO SCH (08:45)
[2020-07-21] MEDS: ZINC SULFATE 220 MG CAP PO SCH (08:46)
[2020-07-21 09:14] LABS: ABG PH 7.48 (7.35-7.45)
[2020-07-21 09:15] LABS: ABG HCO3 36 mmol/L (22-26); ABG PCO2 49 mmHg (35-45); ABG PO2 64 mmHg (80-105); ABG TCO2 38
[2020-07-21] MEDS: NOREPINEPHRINE 8 MG/D5W 250 ML 250 ML IV SCH (10:09)
[2020-07-21] MEDS: VASOPRESSIN 60 UNIT in DEXTROSE 5% 50ML 57 ML IV SCH (13:00)
[2020-07-21] MEDS ORDERED: VECURONIUM BROMIDE FOR INJ 20 MG VIAL IV ONE (19:55)
[2020-07-21] MEDS: ROCURONIUM BROMIDE 1,250 MG in SODIUM CHLORIDE 0.9% 250ML 125 ML IV SCH (20:25)
[2020-07-22] VITALS (25 sets, daily range): BP systolic 90–148; BP diastolic 52–83
[2020-07-22] MEDS: VANCOMYCIN 1GM/NS 250 ML 250 ML IV SCH ×2 (01:51→13:45)
[2020-07-22 04:39] LABS: BASOPHILS # (AUTO) 0.1 (0.0-0.1); BASOPHILS % 0.4 % (0.0-1.0); EOSINOPHILS # (AUTO) 0.4 (0.0-0.4); EOSINOPHILS % 3.3 % (0.0-6.0); HEMATOCRIT 30.9 % (34.2-44.1); HEMOGLOBIN 9.7 g/dL (12.0-16.0); LYMPHOCYTES # (AUTO) 0.9 (1.0-3.2); LYMPHOCYTES % 6.9 % (18.0-39.1); MEAN CORPUSCULAR HEMOGLOBIN 27.8 pg (28-32); MEAN CORPUSCULAR HGB CONC 31.4 g/dL (31-35); MEAN CORPUSCULAR VOLUME 88.5 fL (81-99); MONOCYTES # (AUTO) 0.7 (0.2-0.8); NEUTROPHILS # (AUTO) 10.5 (2.1-6.9); NEUTROPHILS % 79.7 % (38.7-80.0); PLATELET COUNT 253 x10e3/uL (140-360); RED BLOOD COUNT 3.49 x10e6/uL (3.6-5.1); RED CELL DISTRIBUTION WIDTH 15.6 % (11.7-14.4)
[2020-07-22 05:05] LABS: ALANINE AMINOTRANSFERASE 78 IU/L (0-55); ALBUMIN 1.8 g/dL (3.5-5.0); ALBUMIN/GLOBULIN RATIO 0.5 (0.8-2.0); ALKALINE PHOSPHATASE 129 IU/L (40-150); ANION GAP 17.2 mmol/L (8-16); BLOOD UREA NITROGEN 14 mg/dL (7-26); BUN/CREATININE RATIO 28 (6-25); CALCIUM 7.9 mg/dL (8.4-10.2); CARBON DIOXIDE 29 mmol/L (22-29); CHLORIDE 97 mmol/L (98-107); EST GLOMERULAR FILTRATION RATE > 60 ML/MIN (60-); GLUCOSE 157 mg/dL (74-118); POTASSIUM 4.2 mmol/L (3.5-5.1); SODIUM 139 mmol/L (136-145)
[2020-07-22] MEDS: ENOXAPARIN SOD INJ 120 MG/0.8 ML SYR SC SCH ×2 (06:08→17:56)
[2020-07-22] MEDS: CEFEPIME 1GM/NS 0.9% 50 ML 50 ML IV SCH ×2 (06:08→17:30)
[2020-07-22] MEDS: CITALOPRAM HYDROBROMIDE 20 MG TAB PO SCH (08:39)
[2020-07-22] MEDS: DOCUSATE SODIUM LIQD 100 MG/10 ML UDC NG SCH ×2 (08:39→17:56)
[2020-07-22] MEDS: FAMOTIDINE 20 MG/2 ML VIAL IV SCH ×2 (08:39→17:56)
[2020-07-22] MEDS: ASCORBIC ACID 500 MG TAB PO SCH ×2 (08:40→17:56)
[2020-07-22] MEDS: ZINC SULFATE 220 MG CAP PO SCH (08:40)
[2020-07-22] MEDS ORDERED: FUROSEMIDE INJ 10 MG/ML 4 ML VIAL IV SCH (09:00)
[2020-07-22 09:35] LABS: ABG HCO3 36 mmol/L (22-26); ABG PCO2 56 mmHg (35-45); ABG PH 7.42 (7.35-7.45); ABG PO2 119 mmHg (80-105); ABG TCO2 38
[2020-07-22] MEDS: MIDAZOLAM HCL 5MG/ML 10ML VIAL 100 ML IV PRN (10:14)
[2020-07-22] MEDS: FENTANYL 2000MCG/NS 250 250 ML IV PRN (10:14)
[2020-07-22] MEDS: NOREPINEPHRINE 8 MG/D5W 250 ML 250 ML IV SCH (10:24)
[2020-07-22] MEDS: ALBUMIN 25% 25GM 100ML 0.25 GM/ML BTL IV SCH ×3 (11:00→21:00)
[2020-07-22] MEDS: VASOPRESSIN 60 UNIT in DEXTROSE 5% 50ML 57 ML IV SCH (13:10)
[2020-07-22] MEDS: ACETAZOLAMIDE 250 MG TAB PO SCH ×2 (14:09→21:00)
[2020-07-22 18:03] LABS: CLARITY,URINE SL CLOUDY (CLEAR); COLOR,URINE AMBER (YELLOW); KETONES,URINE NEGATIVE (NEGATIVE); LEUKOCYTE ESTERASE ,URINE NEGATIVE (NEGATIVE); NITRITE,URINE NEGATIVE (NEGATIVE); PROTEIN,URINE DIPSTICK 2+ (NEGATIVE); URINE UROBILINOGEN 0.2 mg/dL (0.2 - 1)
[2020-07-22 18:15] LABS: AMORPHOUS SEDIMENT,URINE MODERATE (FEW); BACTERIA,URINE FEW /HPF; EPITHELIAL CELLS,URINE FEW /LPF; WBC,URINE (MAN) 0-5 /HPF (0-5)
[2020-07-22] MEDS: ROCURONIUM BROMIDE 1,250 MG in SODIUM CHLORIDE 0.9% 250ML 125 ML IV SCH (20:59)
[2020-07-23] VITALS (26 sets, daily range): BP systolic 101–151; BP diastolic 54–81
[2020-07-23] MEDS: VANCOMYCIN 1GM/NS 250 ML 250 ML IV SCH ×2 (01:08→14:47)
[2020-07-23] MEDS: ENOXAPARIN SOD INJ 120 MG/0.8 ML SYR SC SCH ×2 (05:36→18:15)
[2020-07-23] MEDS: ACETAZOLAMIDE 250 MG TAB PO SCH (05:36)
[2020-07-23] MEDS: CEFEPIME 1GM/NS 0.9% 50 ML 50 ML IV SCH ×2 (05:36→18:15)
[2020-07-23 05:53] LABS: BASOPHILS % 0.3 % (0.0-1.0); EOSINOPHILS # (AUTO) 0.7 (0.0-0.4); EOSINOPHILS % 6.9 % (0.0-6.0); HEMOGLOBIN 8.9 g/dL (12.0-16.0); LYMPHOCYTES # (AUTO) 0.7 (1.0-3.2); LYMPHOCYTES % 6.7 % (18.0-39.1); MEAN CORPUSCULAR HEMOGLOBIN 28.1 pg (28-32); MEAN CORPUSCULAR HGB CONC 29.7 g/dL (31-35); MEAN CORPUSCULAR VOLUME 94.6 fL (81-99); MONOCYTES # (AUTO) 0.6 (0.2-0.8); MONOCYTES % 5.7 % (4.4-11.3); NEUTROPHILS # (AUTO) 7.3 (2.1-6.9); NEUTROPHILS % 74.7 % (38.7-80.0); PLATELET COUNT 210 x10e3/uL (140-360); RED BLOOD COUNT 3.17 x10e6/uL (3.6-5.1)
[2020-07-23 06:20] LABS: ALANINE AMINOTRANSFERASE 57 IU/L (0-55); ALBUMIN 2.8 g/dL (3.5-5.0); ALBUMIN/GLOBULIN RATIO 0.9 (0.8-2.0); ALKALINE PHOSPHATASE 115 IU/L (40-150); ANION GAP 12.6 mmol/L (8-16); BLOOD UREA NITROGEN 13 mg/dL (7-26); BUN/CREATININE RATIO 25 (6-25); CALCIUM 8.1 mg/dL (8.4-10.2); CARBON DIOXIDE 33 mmol/L (22-29); CHLORIDE 100 mmol/L (98-107); CREATININE, SERUM 0.53 mg/dL (0.57-1.11); EST GLOMERULAR FILTRATION RATE > 60 ML/MIN (60-); GLUCOSE 116 mg/dL (74-118); POTASSIUM 3.6 mmol/L (3.5-5.1); SODIUM 142 mmol/L (136-145)
[2020-07-23] MEDS ORDERED: FUROSEMIDE 40 MG TAB PO SCH (09:00)
[2020-07-23] MEDS: ZINC SULFATE 220 MG CAP PO SCH (09:20)
[2020-07-23] MEDS: ASCORBIC ACID 500 MG TAB PO SCH ×2 (09:20→16:37)
[2020-07-23] MEDS: DOCUSATE SODIUM LIQD 100 MG/10 ML UDC NG SCH ×2 (09:20→16:37)
[2020-07-23] MEDS: FAMOTIDINE 20 MG/2 ML VIAL IV SCH ×2 (09:20→16:37)
[2020-07-23] MEDS: FUROSEMIDE INJ 100 MG in SODIUM CHLORIDE 0.9% 100 ML 90 ML IV SCH (09:20)
[2020-07-23] MEDS: CITALOPRAM HYDROBROMIDE 20 MG TAB PO SCH (09:20)
[2020-07-23 09:45] LABS: ABG HCO3 32 mmol/L (22-26); ABG PCO2 71 mmHg (35-45); ABG PH 7.26 (7.35-7.45); ABG PO2 87 mmHg (80-105)
[2020-07-23 09:46] LABS: ABG TCO2 34
[2020-07-23] MEDS: NOREPINEPHRINE 8 MG/D5W 250 ML 250 ML IV SCH (11:30)
[2020-07-23] MEDS: FENTANYL 2000MCG/NS 250 250 ML IV PRN ×2 (11:35→18:16)
[2020-07-23] MEDS: MIDAZOLAM HCL 5MG/ML 10ML VIAL 100 ML IV PRN ×3 (11:37→20:51)
[2020-07-23] MEDS ORDERED: FENTANYL 2,000 MCG/250 ML BAG ONE (12:27)
[2020-07-23] MEDS ORDERED: MIDAZOLAM HCL 5MG/ML 10ML VIAL 100 ML BAG IV ONE (12:27)
[2020-07-23] MEDS: VASOPRESSIN 60 UNIT in DEXTROSE 5% 50ML 57 ML IV SCH (13:17)
[2020-07-23] MEDS: ROCURONIUM BROMIDE 1,250 MG in SODIUM CHLORIDE 0.9% 250ML 125 ML IV SCH (18:16)
[2020-07-24] VITALS (25 sets, daily range): BP systolic 84–151; BP diastolic 44–89
[2020-07-24] MEDS ORDERED: SODIUM CHLORIDE 0.9% 100 ML ONE (00:02)
[2020-07-24] MEDS: FUROSEMIDE INJ 100 MG in SODIUM CHLORIDE 0.9% 100 ML 90 ML IV SCH (01:00)
[2020-07-24] MEDS: FENTANYL 2000MCG/NS 250 250 ML IV PRN ×4 (01:40→22:00)
[2020-07-24] MEDS: MIDAZOLAM HCL 5MG/ML 10ML VIAL 100 ML IV PRN ×4 (01:45→22:00)
[2020-07-24] MEDS: ROCURONIUM BROMIDE 1,250 MG in SODIUM CHLORIDE 0.9% 250ML 125 ML IV PRN ×2 (02:30→12:00)
[2020-07-24] MEDS: VANCOMYCIN 1GM/NS 250 ML 250 ML IV SCH ×2 (03:00→15:12)
[2020-07-24] MEDS: NOREPINEPHRINE 8 MG/D5W 250 ML 250 ML IV PRN ×2 (03:45→14:00)
[2020-07-24] MEDS: VASOPRESSIN 60 UNIT in DEXTROSE 5% 50ML 57 ML IV PRN ×2 (04:50→11:00)
[2020-07-24 05:16] LABS: BASOPHILS # (AUTO) 0.1 (0.0-0.1); BASOPHILS % 0.4 % (0.0-1.0); EOSINOPHILS # (AUTO) 0.7 (0.0-0.4); EOSINOPHILS % 6.5 % (0.0-6.0); HEMATOCRIT 31.1 % (34.2-44.1); HEMOGLOBIN 9.3 g/dL (12.0-16.0); LYMPHOCYTES # (AUTO) 1.1 (1.0-3.2); MEAN CORPUSCULAR HEMOGLOBIN 27.1 pg (28-32); MEAN CORPUSCULAR HGB CONC 29.9 g/dL (31-35); MEAN CORPUSCULAR VOLUME 90.7 fL (81-99); MONOCYTES # (AUTO) 0.7 (0.2-0.8); MONOCYTES % 6.1 % (4.4-11.3); NEUTROPHILS # (AUTO) 8.1 (2.1-6.9); NEUTROPHILS % 70.5 % (38.7-80.0); PLATELET COUNT 260 x10e3/uL (140-360); RED BLOOD COUNT 3.43 x10e6/uL (3.6-5.1)
[2020-07-24] MEDS: ENOXAPARIN SOD INJ 120 MG/0.8 ML SYR SC SCH ×2 (05:30→17:41)
[2020-07-24 05:54] LABS: ALANINE AMINOTRANSFERASE 71 IU/L (0-55); ALBUMIN 2.5 g/dL (3.5-5.0); ALBUMIN/GLOBULIN RATIO 0.7 (0.8-2.0); ALKALINE PHOSPHATASE 117 IU/L (40-150); ANION GAP 13.6 mmol/L (8-16); BLOOD UREA NITROGEN 13 mg/dL (7-26); BUN/CREATININE RATIO 21 (6-25); CALCIUM 7.8 mg/dL (8.4-10.2); CARBON DIOXIDE 35 mmol/L (22-29); CHLORIDE 94 mmol/L (98-107); CREATININE, SERUM 0.61 mg/dL (0.57-1.11); EST GLOMERULAR FILTRATION RATE > 60 ML/MIN (60-); GLUCOSE 138 mg/dL (74-118); SODIUM 140 mmol/L (136-145)
[2020-07-24 06:07] LABS: POTASSIUM 2.6 mmol/L (3.5-5.1)
[2020-07-24] MEDS: CEFEPIME 1GM/NS 0.9% 50 ML 50 ML IV SCH (06:15)
[2020-07-24] MEDS ORDERED: POTASSIUM CHLORIDE 20MEQ/100ML 200 ML IV ONE (07:15)
[2020-07-24] MEDS: FAMOTIDINE 20 MG/2 ML VIAL IV SCH ×2 (08:21→16:56)
[2020-07-24] MEDS: ASCORBIC ACID 500 MG TAB PO SCH ×2 (08:21→16:56)
[2020-07-24] MEDS: ZINC SULFATE 220 MG CAP PO SCH (08:21)
[2020-07-24] MEDS: CITALOPRAM HYDROBROMIDE 20 MG TAB PO SCH (08:21)
[2020-07-24] MEDS: DOCUSATE SODIUM LIQD 100 MG/10 ML UDC NG SCH ×2 (08:21→16:56)
[2020-07-24] MEDS ORDERED: POTASSIUM CHLORIDE 20MEQ/15ML UDC NG SCH (09:00)
[2020-07-24 09:29] LABS: ABG HCO3 38 mmol/L (22-26); ABG PCO2 63 mmHg (35-45); ABG PH 7.39 (7.35-7.45); ABG PO2 67 mmHg (80-105); ABG TCO2 40
[2020-07-24] MEDS ORDERED: KCL 20 MEQ PACKET/ ORAL SOLN ONE (09:37)
[2020-07-24] MEDS ORDERED: ALBUMIN 25% 25GM 100ML 0.25 GM/ML BTL IV SCH (12:00)
[2020-07-24] MEDS ORDERED: KCL 20 MEQ PACKET/ ORAL SOLN NG ONE (13:30)
[2020-07-24] MEDS: ALBUMIN 25% 25GM 100ML 100 ML IV SCH ×2 (14:11→22:00)
[2020-07-25] VITALS (29 sets, daily range): BP systolic 83–156; BP diastolic 46–97
[2020-07-25] MEDS: VANCOMYCIN 1GM/NS 250 ML 250 ML IV SCH ×2 (03:00→14:46)
[2020-07-25] MEDS: MIDAZOLAM HCL 5MG/ML 10ML VIAL 100 ML IV PRN (03:20)
[2020-07-25] MEDS: NOREPINEPHRINE 8 MG/D5W 250 ML 250 ML IV PRN (03:30)
[2020-07-25 04:58] LABS: BASOPHILS % 0.4 % (0.0-1.0); EOSINOPHILS # (AUTO) 0.8 (0.0-0.4); EOSINOPHILS % 8.2 % (0.0-6.0); HEMATOCRIT 26.9 % (34.2-44.1); HEMOGLOBIN 8.5 g/dL (12.0-16.0); LYMPHOCYTES # (AUTO) 1.2 (1.0-3.2); LYMPHOCYTES % 11.7 % (18.0-39.1); MEAN CORPUSCULAR HEMOGLOBIN 27.2 pg (28-32); MEAN CORPUSCULAR HGB CONC 31.6 g/dL (31-35); MEAN CORPUSCULAR VOLUME 86.2 fL (81-99); MONOCYTES # (AUTO) 0.7 (0.2-0.8); MONOCYTES % 6.5 % (4.4-11.3); NEUTROPHILS # (AUTO) 6.8 (2.1-6.9); NEUTROPHILS % 67.8 % (38.7-80.0); PLATELET COUNT 236 x10e3/uL (140-360); RED BLOOD COUNT 3.12 x10e6/uL (3.6-5.1); RED CELL DISTRIBUTION WIDTH 15.9 % (11.7-14.4)
[2020-07-25] MEDS: ALBUMIN 25% 25GM 100ML 100 ML IV SCH (05:00)
[2020-07-25] MEDS: FENTANYL 2000MCG/NS 250 250 ML IV PRN ×3 (05:20→11:00)
[2020-07-25 05:28] LABS: ALANINE AMINOTRANSFERASE 67 IU/L (0-55); ALBUMIN 3.5 g/dL (3.5-5.0); ALBUMIN/GLOBULIN RATIO 1.1 (0.8-2.0); ALKALINE PHOSPHATASE 95 IU/L (40-150); ANION GAP 13.8 mmol/L (8-16); BLOOD UREA NITROGEN 14 mg/dL (7-26); BUN/CREATININE RATIO 22 (6-25); CALCIUM 8.5 mg/dL (8.4-10.2); CARBON DIOXIDE 39 mmol/L (22-29); CHLORIDE 85 mmol/L (98-107); CREATININE, SERUM 0.65 mg/dL (0.57-1.11); EST GLOMERULAR FILTRATION RATE > 60 ML/MIN (60-); GLUCOSE 120 mg/dL (74-118); SODIUM 135 mmol/L (136-145)
[2020-07-25 05:30] LABS: POTASSIUM 2.8 mmol/L (3.5-5.1)
[2020-07-25] MEDS: ENOXAPARIN SOD INJ 120 MG/0.8 ML SYR SC SCH ×2 (06:30→17:35)
[2020-07-25 07:14] LABS: ANISOCYTOSIS SLIGHT; EOSINOPHILS % (MANUAL) 4 % (0-7); LYMPHOCYTES % (MANUAL) 6 % (19-48); METAMYELOCYTES % (MANUAL) 1 % (0-0); MONOCYTES % (MANUAL) 2 % (3.4-9.0); NEUTROPHILS % (MANUAL) 87 % (40-74); PLATELET ESTIMATE ADEQUATE; PLATELET MORPHOLOGY COMMENT RARE EDTA CLUMPING; RBC MORPHOLOGY COMMENT NORMAL
[2020-07-25] MEDS ORDERED: POTASSIUM CHLORIDE 20MEQ/100ML 300 ML IV ONE (08:00)
[2020-07-25] MEDS: FUROSEMIDE INJ 100 MG in SODIUM CHLORIDE 0.9% 100 ML 90 ML IV SCH (08:30)
[2020-07-25 09:28] LABS: ABG HCO3 40 mmol/L (22-26); ABG PCO2 64 mmHg (35-45); ABG PH 7.41 (7.35-7.45); ABG PO2 93 mmHg (80-105); ABG TCO2 42
[2020-07-25] MEDS: FAMOTIDINE 20 MG/2 ML VIAL IV SCH ×2 (11:22→16:55)
[2020-07-25] MEDS: ZINC SULFATE 220 MG CAP PO SCH (11:22)
[2020-07-25] MEDS: DOCUSATE SODIUM LIQD 100 MG/10 ML UDC NG SCH ×2 (11:22→16:55)
[2020-07-25] MEDS: CITALOPRAM HYDROBROMIDE 20 MG TAB PO SCH (11:22)
[2020-07-25] MEDS: ASCORBIC ACID 500 MG TAB PO SCH ×2 (11:22→16:55)
[2020-07-25] MEDS: KCL 20 MEQ PACKET/ ORAL SOLN NG SCH (11:22)
[2020-07-26] VITALS (26 sets, daily range): BP systolic 75–144; BP diastolic 30–93
[2020-07-26] MEDS: VANCOMYCIN 1GM/NS 250 ML 250 ML IV SCH (01:50)
[2020-07-26] MEDS: ENOXAPARIN SOD INJ 120 MG/0.8 ML SYR SC SCH (05:24)
[2020-07-26 06:23] LABS: BASOPHILS # (AUTO) 0.1 (0.0-0.1); BASOPHILS % 0.6 % (0.0-1.0); EOSINOPHILS # (AUTO) 0.6 (0.0-0.4); EOSINOPHILS % 5.6 % (0.0-6.0); HEMATOCRIT 30.5 % (34.2-44.1); HEMOGLOBIN 9.3 g/dL (12.0-16.0); LYMPHOCYTES # (AUTO) 1.4 (1.0-3.2); LYMPHOCYTES % 13.6 % (18.0-39.1); MEAN CORPUSCULAR HEMOGLOBIN 27.6 pg (28-32); MEAN CORPUSCULAR HGB CONC 30.5 g/dL (31-35); MEAN CORPUSCULAR VOLUME 90.5 fL (81-99); MONOCYTES # (AUTO) 0.7 (0.2-0.8); MONOCYTES % 6.8 % (4.4-11.3); NEUTROPHILS # (AUTO) 6.8 (2.1-6.9); NEUTROPHILS % 68.7 % (38.7-80.0); PLATELET COUNT 279 x10e3/uL (140-360); RED BLOOD COUNT 3.37 x10e6/uL (3.6-5.1); RED CELL DISTRIBUTION WIDTH 16.6 % (11.7-14.4)
[2020-07-26 06:59] LABS: ALANINE AMINOTRANSFERASE 77 IU/L (0-55); ALBUMIN 2.9 g/dL (3.5-5.0); ALBUMIN/GLOBULIN RATIO 0.9 (0.8-2.0); ALKALINE PHOSPHATASE 108 IU/L (40-150); ANION GAP 15.2 mmol/L (8-16); BLOOD UREA NITROGEN 12 mg/dL (7-26); BUN/CREATININE RATIO 22 (6-25); CALCIUM 8.4 mg/dL (8.4-10.2); CARBON DIOXIDE 36 mmol/L (22-29); CHLORIDE 96 mmol/L (98-107); CREATININE, SERUM 0.55 mg/dL (0.57-1.11); EST GLOMERULAR FILTRATION RATE > 60 ML/MIN (60-); GLUCOSE 130 mg/dL (74-118)
[2020-07-26 07:01] LABS: POTASSIUM 4.2 mmol/L (3.5-5.1); SODIUM 143 mmol/L (136-145)
[2020-07-26] MEDS: FAMOTIDINE 20 MG/2 ML VIAL IV SCH ×2 (09:15→16:31)
[2020-07-26] MEDS: DOCUSATE SODIUM LIQD 100 MG/10 ML UDC NG SCH ×2 (09:16→16:31)
[2020-07-26] MEDS: KCL 20 MEQ PACKET/ ORAL SOLN NG SCH (09:16)
[2020-07-26] MEDS: ZINC SULFATE 220 MG CAP PO SCH (09:16)
[2020-07-26] MEDS: ASCORBIC ACID 500 MG TAB PO SCH ×2 (09:16→16:31)
[2020-07-26] MEDS: CITALOPRAM HYDROBROMIDE 20 MG TAB PO SCH (09:16)
[2020-07-26] MEDS: NOREPINEPHRINE 8 MG/D5W 250 ML 250 ML IV PRN (11:20)
[2020-07-26 14:35] LABS: ABG HCO3 39 mmol/L (22-26); ABG PCO2 62 mmHg (35-45); ABG PH 7.41 (7.35-7.45); ABG PO2 81 mmHg (80-105); ABG TCO2 41
[2020-07-26] MEDS: MIDAZOLAM HCL 5MG/ML 10ML VIAL 100 ML IV PRN (16:33)
[2020-07-27] VITALS (31 sets, daily range): BP systolic 90–120; BP diastolic 52–74
[2020-07-27 06:20] LABS: BASOPHILS # (AUTO) 0.1 (0.0-0.1); BASOPHILS % 0.7 % (0.0-1.0); EOSINOPHILS # (AUTO) 0.9 (0.0-0.4); EOSINOPHILS % 9.1 % (0.0-6.0); HEMATOCRIT 30.5 % (34.2-44.1); HEMOGLOBIN 9.1 g/dL (12.0-16.0); LYMPHOCYTES # (AUTO) 1.3 (1.0-3.2); LYMPHOCYTES % 12.5 % (18.0-39.1); MEAN CORPUSCULAR HEMOGLOBIN 27.5 pg (28-32); MEAN CORPUSCULAR HGB CONC 29.8 g/dL (31-35); MEAN CORPUSCULAR VOLUME 92.1 fL (81-99); MONOCYTES # (AUTO) 0.8 (0.2-0.8); MONOCYTES % 7.4 % (4.4-11.3); NEUTROPHILS # (AUTO) 6.6 (2.1-6.9); PLATELET COUNT 283 x10e3/uL (140-360); RED BLOOD COUNT 3.31 x10e6/uL (3.6-5.1); RED CELL DISTRIBUTION WIDTH 17.2 % (11.7-14.4)
[2020-07-27 06:48] LABS: ALANINE AMINOTRANSFERASE 83 IU/L (0-55); ALBUMIN 2.5 g/dL (3.5-5.0); ALBUMIN/GLOBULIN RATIO 0.7 (0.8-2.0); ALKALINE PHOSPHATASE 105 IU/L (40-150); ANION GAP 14.6 mmol/L (8-16); BLOOD UREA NITROGEN 12 mg/dL (7-26); BUN/CREATININE RATIO 23 (6-25); CARBON DIOXIDE 32 mmol/L (22-29); CHLORIDE 100 mmol/L (98-107); CREATININE, SERUM 0.52 mg/dL (0.57-1.11); EST GLOMERULAR FILTRATION RATE > 60 ML/MIN (60-); GLUCOSE 127 mg/dL (74-118); POTASSIUM 4.6 mmol/L (3.5-5.1); SODIUM 142 mmol/L (136-145)
[2020-07-27] MEDS: KCL 20 MEQ PACKET/ ORAL SOLN NG SCH (08:17)
[2020-07-27] MEDS: DOCUSATE SODIUM LIQD 100 MG/10 ML UDC NG SCH ×2 (08:17→16:06)
[2020-07-27] MEDS: ASCORBIC ACID 500 MG TAB PO SCH ×2 (08:17→16:07)
[2020-07-27] MEDS: CITALOPRAM HYDROBROMIDE 20 MG TAB PO SCH (08:17)
[2020-07-27] MEDS: ZINC SULFATE 220 MG CAP PO SCH (08:17)
[2020-07-27] MEDS: FAMOTIDINE 20 MG/2 ML VIAL IV SCH ×2 (08:17→16:06)
[2020-07-27] MEDS: MIDAZOLAM HCL 5MG/ML 10ML VIAL 100 ML IV PRN ×3 (08:18→19:00)
[2020-07-27 08:56] LABS: ABG HCO3 37 mmol/L (22-26); ABG PCO2 65 mmHg (35-45); ABG PH 7.37 (7.35-7.45); ABG PO2 89 mmHg (80-105); ABG TCO2 39
[2020-07-27 09:12] LABS: EOSINOPHILS % (MANUAL) 17 % (0-7); LYMPHOCYTES % (MANUAL) 7 % (19-48); METAMYELOCYTES % (MANUAL) 2 % (0-0); MONOCYTES % (MANUAL) 2 % (3.4-9.0); NEUTROPHILS % (MANUAL) 71 % (40-74); NUCLEATED RED BLOOD CELLS 1
[2020-07-27 09:13] LABS: HYPOCHROMASIA SLIGHT; PLATELET ESTIMATE ADEQUATE; PLATELET MORPHOLOGY COMMENT FEW GIANT; RBC MORPHOLOGY COMMENT NORMAL
[2020-07-27] MEDS: FENTANYL 2000MCG/NS 250 250 ML IV PRN ×2 (11:56→18:23)
[2020-07-27] MEDS: ENOXAPARIN SODIUM INJ 100 MG/ML SYR SC SCH ×2 (12:24→21:32)
[2020-07-27] MEDS: NOREPINEPHRINE 8 MG/D5W 250 ML 250 ML IV PRN (13:55)
[2020-07-27] MEDS: ROCURONIUM BROMIDE 1,250 MG in SODIUM CHLORIDE 0.9% 250ML 125 ML IV PRN (16:52)
[2020-07-28] VITALS (30 sets, daily range): BP systolic 97–134; BP diastolic 52–68
[2020-07-28] MEDS: FENTANYL 2000MCG/NS 250 250 ML IV PRN ×2 (00:40→08:00)
[2020-07-28] MEDS: MIDAZOLAM HCL 5MG/ML 10ML VIAL 100 ML IV PRN ×5 (05:51→21:36)
[2020-07-28 06:06] LABS: BASOPHILS # (AUTO) 0.1 (0.0-0.1); BASOPHILS % 0.7 % (0.0-1.0); EOSINOPHILS # (AUTO) 1.2 (0.0-0.4); EOSINOPHILS % 11.5 % (0.0-6.0); HEMATOCRIT 29.7 % (34.2-44.1); HEMOGLOBIN 9.1 g/dL (12.0-16.0); LYMPHOCYTES # (AUTO) 1.4 (1.0-3.2); LYMPHOCYTES % 13.1 % (18.0-39.1); MEAN CORPUSCULAR HEMOGLOBIN 28.3 pg (28-32); MEAN CORPUSCULAR HGB CONC 30.6 g/dL (31-35); MEAN CORPUSCULAR VOLUME 92.5 fL (81-99); MONOCYTES # (AUTO) 0.7 (0.2-0.8); MONOCYTES % 6.8 % (4.4-11.3); NEUTROPHILS # (AUTO) 6.3 (2.1-6.9); NEUTROPHILS % 59.6 % (38.7-80.0); PLATELET COUNT 304 x10e3/uL (140-360); RED BLOOD COUNT 3.21 x10e6/uL (3.6-5.1); RED CELL DISTRIBUTION WIDTH 17.9 % (11.7-14.4)
[2020-07-28 06:34] LABS: ALANINE AMINOTRANSFERASE 83 IU/L (0-55); ALBUMIN 2.2 g/dL (3.5-5.0); ALBUMIN/GLOBULIN RATIO 0.6 (0.8-2.0); ALKALINE PHOSPHATASE 112 IU/L (40-150); ANION GAP 10.2 mmol/L (8-16); BLOOD UREA NITROGEN 10 mg/dL (7-26); BUN/CREATININE RATIO 20 (6-25); CALCIUM 7.9 mg/dL (8.4-10.2); CARBON DIOXIDE 35 mmol/L (22-29); CHLORIDE 100 mmol/L (98-107); EST GLOMERULAR FILTRATION RATE > 60 ML/MIN (60-); GLUCOSE 152 mg/dL (74-118); POTASSIUM 4.2 mmol/L (3.5-5.1); SODIUM 141 mmol/L (136-145)
[2020-07-28] MEDS: NOREPINEPHRINE 8 MG/D5W 250 ML 250 ML IV PRN ×3 (07:45→21:45)
[2020-07-28] MEDS: FAMOTIDINE 20 MG/2 ML VIAL IV SCH ×2 (08:00→09:38)
[2020-07-28 08:53] LABS: ABG HCO3 38 mmol/L (22-26); ABG PCO2 60 mmHg (35-45); ABG PH 7.41 (7.35-7.45); ABG PO2 94 mmHg (80-105); ABG TCO2 40
[2020-07-28 09:01] LABS: BAND NEUTROPHILS % (MANUAL) 1 %; EOSINOPHILS % (MANUAL) 12 % (0-7); LYMPHOCYTES % (MANUAL) 9 % (19-48); METAMYELOCYTES % (MANUAL) 5 % (0-0); MONOCYTES % (MANUAL) 9 % (3.4-9.0); NEUTROPHILS % (MANUAL) 64 % (40-74); NUCLEATED RED BLOOD CELLS 1; POLYCHROMASIA FEW
[2020-07-28 09:03] LABS: PLATELET ESTIMATE ADEQUATE; PLATELET MORPHOLOGY COMMENT NORMAL; RBC MORPHOLOGY COMMENT NORMAL
[2020-07-28] MEDS: KCL 20 MEQ PACKET/ ORAL SOLN NG SCH (09:38)
[2020-07-28] MEDS: ENOXAPARIN SODIUM INJ 100 MG/ML SYR SC SCH ×2 (09:38→20:46)
[2020-07-28] MEDS: ZINC SULFATE 220 MG CAP PO SCH (09:38)
[2020-07-28] MEDS: ASCORBIC ACID 500 MG TAB PO SCH ×2 (09:38→17:41)
[2020-07-28] MEDS: DOCUSATE SODIUM LIQD 100 MG/10 ML UDC NG SCH ×2 (09:38→17:41)
[2020-07-28] MEDS: CITALOPRAM HYDROBROMIDE 20 MG TAB PO SCH (09:38)
[2020-07-28] MEDS: FENTANYL 2000MCG/NS 250 250 ML IV SCH ×3 (10:45→21:45)
[2020-07-28] MEDS: ROCURONIUM BROMIDE 1,250 MG in SODIUM CHLORIDE 0.9% 250ML 125 ML IV PRN (15:25)
[2020-07-29] VITALS (24 sets, daily range): BP systolic 94–123; BP diastolic 53–69
[2020-07-29 06:17] LABS: BASOPHILS # (AUTO) 0.1 (0.0-0.1); BASOPHILS % 0.7 % (0.0-1.0); EOSINOPHILS % 8.8 % (0.0-6.0); HEMATOCRIT 30.3 % (34.2-44.1); HEMOGLOBIN 9.1 g/dL (12.0-16.0); LYMPHOCYTES # (AUTO) 1.5 (1.0-3.2); LYMPHOCYTES % 13.5 % (18.0-39.1); MEAN CORPUSCULAR HEMOGLOBIN 27.9 pg (28-32); MEAN CORPUSCULAR VOLUME 92.9 fL (81-99); MONOCYTES # (AUTO) 0.9 (0.2-0.8); MONOCYTES % 8.1 % (4.4-11.3); NEUTROPHILS # (AUTO) 6.5 (2.1-6.9); PLATELET COUNT 335 x10e3/uL (140-360); RED BLOOD COUNT 3.26 x10e6/uL (3.6-5.1); RED CELL DISTRIBUTION WIDTH 18.4 % (11.7-14.4)
[2020-07-29 06:42] LABS: ALANINE AMINOTRANSFERASE 91 IU/L (0-55); ALBUMIN 2.1 g/dL (3.5-5.0); ALBUMIN/GLOBULIN RATIO 0.5 (0.8-2.0); ALKALINE PHOSPHATASE 116 IU/L (40-150); ANION GAP 11.4 mmol/L (8-16); BLOOD UREA NITROGEN 10 mg/dL (7-26); BUN/CREATININE RATIO 19 (6-25); CARBON DIOXIDE 32 mmol/L (22-29); CHLORIDE 100 mmol/L (98-107); CREATININE, SERUM 0.53 mg/dL (0.57-1.11); EST GLOMERULAR FILTRATION RATE > 60 ML/MIN (60-); GLUCOSE 163 mg/dL (74-118); POTASSIUM 4.4 mmol/L (3.5-5.1); SODIUM 139 mmol/L (136-145)
[2020-07-29] MEDS: NOREPINEPHRINE 8 MG/D5W 250 ML 250 ML IV PRN ×2 (08:21→16:34)
[2020-07-29] MEDS: FAMOTIDINE 20 MG/2 ML VIAL IV SCH ×2 (09:37→18:00)
[2020-07-29] MEDS: DOCUSATE SODIUM LIQD 100 MG/10 ML UDC NG SCH ×2 (09:37→18:00)
[2020-07-29] MEDS: FUROSEMIDE INJ 10 MG/ML 2 ML VIAL IV SCH (09:37)
[2020-07-29] MEDS: ENOXAPARIN SODIUM INJ 100 MG/ML SYR SC SCH ×2 (09:37→20:17)
[2020-07-29] MEDS: KCL 20 MEQ PACKET/ ORAL SOLN NG SCH (09:37)
[2020-07-29] MEDS: ASCORBIC ACID 500 MG TAB PO SCH ×2 (09:37→18:00)
[2020-07-29] MEDS: CITALOPRAM HYDROBROMIDE 20 MG TAB PO SCH (09:37)
[2020-07-29] MEDS: ZINC SULFATE 220 MG CAP PO SCH (09:37)
[2020-07-29 10:11] LABS: ABG PH 7.36 (7.35-7.45)
[2020-07-29 10:12] LABS: ABG HCO3 36 mmol/L (22-26); ABG PCO2 65 mmHg (35-45); ABG PO2 83 mmHg (80-105); ABG TCO2 38
[2020-07-29] MEDS: MIDAZOLAM HCL 5MG/ML 10ML VIAL 100 ML IV PRN ×3 (10:30→20:20)
[2020-07-29] MEDS: FENTANYL 2000MCG/NS 250 250 ML IV SCH ×2 (12:27→18:47)
[2020-07-29] MEDS: ROCURONIUM BROMIDE 1,250 MG in SODIUM CHLORIDE 0.9% 250ML 125 ML IV PRN (14:21)
[2020-07-30] VITALS (26 sets, daily range): BP systolic 91–134; BP diastolic 48–69
[2020-07-30 06:12] LABS: BASOPHILS # (AUTO) 0.1 (0.0-0.1); BASOPHILS % 0.7 % (0.0-1.0); EOSINOPHILS % 8.4 % (0.0-6.0); HEMATOCRIT 30.5 % (34.2-44.1); HEMOGLOBIN 9.2 g/dL (12.0-16.0); LYMPHOCYTES # (AUTO) 1.5 (1.0-3.2); LYMPHOCYTES % 11.9 % (18.0-39.1); MEAN CORPUSCULAR HEMOGLOBIN 28.1 pg (28-32); MEAN CORPUSCULAR HGB CONC 30.2 g/dL (31-35); MEAN CORPUSCULAR VOLUME 93.3 fL (81-99); MONOCYTES # (AUTO) 1.2 (0.2-0.8); MONOCYTES % 9.6 % (4.4-11.3); NEUTROPHILS # (AUTO) 7.3 (2.1-6.9); NEUTROPHILS % 59.2 % (38.7-80.0); PLATELET COUNT 355 x10e3/uL (140-360); RED BLOOD COUNT 3.27 x10e6/uL (3.6-5.1); RED CELL DISTRIBUTION WIDTH 18.9 % (11.7-14.4)
[2020-07-30 07:04] LABS: ALANINE AMINOTRANSFERASE 90 IU/L (0-55); ALBUMIN 2.2 g/dL (3.5-5.0); ALBUMIN/GLOBULIN RATIO 0.6 (0.8-2.0); ALKALINE PHOSPHATASE 133 IU/L (40-150); ANION GAP 11.5 mmol/L (8-16); BLOOD UREA NITROGEN 11 mg/dL (7-26); BUN/CREATININE RATIO 21 (6-25); CARBON DIOXIDE 32 mmol/L (22-29); CHLORIDE 98 mmol/L (98-107); CREATININE, SERUM 0.52 mg/dL (0.57-1.11); EST GLOMERULAR FILTRATION RATE > 60 ML/MIN (60-); GLUCOSE 160 mg/dL (74-118); POTASSIUM 4.5 mmol/L (3.5-5.1); SODIUM 137 mmol/L (136-145)
[2020-07-30] MEDS: DOCUSATE SODIUM LIQD 100 MG/10 ML UDC NG SCH ×2 (09:09→17:50)
[2020-07-30] MEDS: CITALOPRAM HYDROBROMIDE 20 MG TAB PO SCH (09:09)
[2020-07-30] MEDS: ZINC SULFATE 220 MG CAP PO SCH (09:09)
[2020-07-30] MEDS: FUROSEMIDE INJ 10 MG/ML 2 ML VIAL IV SCH (09:09)
[2020-07-30] MEDS: FAMOTIDINE 20 MG/2 ML VIAL IV SCH ×2 (09:09→17:50)
[2020-07-30] MEDS: ASCORBIC ACID 500 MG TAB PO SCH ×2 (09:09→17:50)
[2020-07-30] MEDS: KCL 20 MEQ PACKET/ ORAL SOLN NG SCH (09:09)
[2020-07-30] MEDS: ENOXAPARIN SODIUM INJ 100 MG/ML SYR SC SCH ×2 (09:09→20:17)
[2020-07-30] MEDS: FENTANYL 2000MCG/NS 250 250 ML IV SCH ×2 (09:13→15:48)
[2020-07-30] MEDS: NOREPINEPHRINE 8 MG/D5W 250 ML 250 ML IV PRN (09:13)
[2020-07-30] MEDS: MIDAZOLAM HCL 5MG/ML 10ML VIAL 100 ML IV PRN ×2 (09:14→15:01)
[2020-07-30 11:11] LABS: EOSINOPHILS % (MANUAL) 8 % (0-7); LYMPHOCYTES % (MANUAL) 16 % (19-48); MONOCYTES % (MANUAL) 2 % (3.4-9.0); NEUTROPHILS % (MANUAL) 69 % (40-74); PROMYELOCYTES % (MANUAL) 5 % (0-0)
[2020-07-30 11:14] LABS: HYPOCHROMASIA SLIGHT; POLYCHROMASIA FEW
[2020-07-30 11:16] LABS: ANISOCYTOSIS SLIGHT; RBC MORPHOLOGY COMMENT ABNORMAL
[2020-07-30 11:19] LABS: PLATELET ESTIMATE ADEQUATE; PLATELET MORPHOLOGY COMMENT NORMAL
[2020-07-30 15:46] LABS: BASOPHILS # (AUTO) 0.1 (0.0-0.1); BASOPHILS % 0.8 % (0.0-1.0); EOSINOPHILS # (AUTO) 0.9 (0.0-0.4); EOSINOPHILS % 7.5 % (0.0-6.0); HEMATOCRIT 29.4 % (34.2-44.1); HEMOGLOBIN 8.7 g/dL (12.0-16.0); LYMPHOCYTES # (AUTO) 1.2 (1.0-3.2); LYMPHOCYTES % 10.4 % (18.0-39.1); MEAN CORPUSCULAR HEMOGLOBIN 27.2 pg (28-32); MEAN CORPUSCULAR HGB CONC 29.6 g/dL (31-35); MEAN CORPUSCULAR VOLUME 91.9 fL (81-99); MONOCYTES # (AUTO) 1.1 (0.2-0.8); MONOCYTES % 9.3 % (4.4-11.3); NEUTROPHILS # (AUTO) 7.3 (2.1-6.9); NEUTROPHILS % 62.4 % (38.7-80.0); PLATELET COUNT 349 x10e3/uL (140-360); RED CELL DISTRIBUTION WIDTH 18.9 % (11.7-14.4)
[2020-07-30 16:00] LABS: INR 1.18; PROTHROMBIN TIME 15.8 seconds (11.9-14.5)
[2020-07-30 16:01] LABS: PARTIAL THROMBOPLASTIN TIME 42.8 seconds (23.8-35.5)
[2020-07-30] MEDS: ROCURONIUM BROMIDE 1,250 MG in SODIUM CHLORIDE 0.9% 250ML 125 ML IV PRN (16:39)
[2020-07-30 20:22] LABS: BAND NEUTROPHILS % (MANUAL) 8 %; EOSINOPHILS % (MANUAL) 4 % (0-7); LYMPHOCYTES % (MANUAL) 14 % (19-48); METAMYELOCYTES % (MANUAL) 1 % (0-0); MONOCYTES % (MANUAL) 7 % (3.4-9.0); NEUTROPHILS % (MANUAL) 65 % (40-74)
[2020-07-30 20:23] LABS: PLATELET MORPHOLOGY COMMENT NORMAL
[2020-07-30 20:24] LABS: ANISOCYTOSIS SLIGHT; PLATELET ESTIMATE ADEQUATE
[2020-07-31] VITALS (25 sets, daily range): BP systolic 91–136; BP diastolic 51–70
[2020-07-31 06:10] LABS: BASOPHILS # (AUTO) 0.1 (0.0-0.1); BASOPHILS % 0.5 % (0.0-1.0); EOSINOPHILS # (AUTO) 0.8 (0.0-0.4); EOSINOPHILS % 6.7 % (0.0-6.0); HEMATOCRIT 29.1 % (34.2-44.1); HEMOGLOBIN 8.6 g/dL (12.0-16.0); LYMPHOCYTES # (AUTO) 0.8 (1.0-3.2); LYMPHOCYTES % 7.1 % (18.0-39.1); MEAN CORPUSCULAR HEMOGLOBIN 27.5 pg (28-32); MEAN CORPUSCULAR HGB CONC 29.6 g/dL (31-35); MONOCYTES # (AUTO) 1.1 (0.2-0.8); MONOCYTES % 9.9 % (4.4-11.3); NEUTROPHILS # (AUTO) 7.7 (2.1-6.9); NEUTROPHILS % 66.6 % (38.7-80.0); PLATELET COUNT 348 x10e3/uL (140-360); RED BLOOD COUNT 3.13 x10e6/uL (3.6-5.1); RED CELL DISTRIBUTION WIDTH 19.1 % (11.7-14.4)
[2020-07-31 06:33] LABS: ALANINE AMINOTRANSFERASE 79 IU/L (0-55); ALBUMIN/GLOBULIN RATIO 0.5 (0.8-2.0); ALKALINE PHOSPHATASE 118 IU/L (40-150); ANION GAP 12.3 mmol/L (8-16); BLOOD UREA NITROGEN 11 mg/dL (7-26); BUN/CREATININE RATIO 21 (6-25); CALCIUM 8.3 mg/dL (8.4-10.2); CARBON DIOXIDE 33 mmol/L (22-29); CHLORIDE 96 mmol/L (98-107); CREATININE, SERUM 0.53 mg/dL (0.57-1.11); EST GLOMERULAR FILTRATION RATE > 60 ML/MIN (60-); GLUCOSE 193 mg/dL (74-118); POTASSIUM 4.3 mmol/L (3.5-5.1); SODIUM 137 mmol/L (136-145)
[2020-07-31] MEDS: DOCUSATE SODIUM LIQD 100 MG/10 ML UDC NG SCH ×2 (08:07→16:19)
[2020-07-31] MEDS: CITALOPRAM HYDROBROMIDE 20 MG TAB PO SCH (08:07)
[2020-07-31] MEDS: ZINC SULFATE 220 MG CAP PO SCH (08:07)
[2020-07-31] MEDS: FAMOTIDINE 20 MG/2 ML VIAL IV SCH ×2 (08:07→16:19)
[2020-07-31] MEDS: ENOXAPARIN SODIUM INJ 100 MG/ML SYR SC SCH (08:07)
[2020-07-31] MEDS: ASCORBIC ACID 500 MG TAB PO SCH ×2 (08:07→16:19)
[2020-07-31] MEDS: FUROSEMIDE INJ 10 MG/ML 2 ML VIAL IV SCH (08:12)
[2020-07-31 08:50] LABS: ABG HCO3 37 mmol/L (22-26); ABG PCO2 72 mmHg (35-45); ABG PH 7.32 (7.35-7.45); ABG PO2 88 mmHg (80-105); ABG TCO2 39
[2020-07-31] MEDS: KCL 20 MEQ PACKET/ ORAL SOLN NG SCH (10:12)
[2020-07-31] MEDS: FENTANYL 2000MCG/NS 250 250 ML IV SCH ×2 (11:41→17:16)
[2020-07-31] MEDS: MIDAZOLAM HCL 5MG/ML 10ML VIAL 100 ML IV PRN ×3 (11:42→22:21)
[2020-07-31] MEDS: NOREPINEPHRINE 8 MG/D5W 250 ML 250 ML IV PRN ×2 (11:52→19:35)
[2020-07-31] MEDS: ROCURONIUM BROMIDE 1,250 MG in SODIUM CHLORIDE 0.9% 250ML 125 ML IV PRN (11:52)
[2020-07-31] MEDS ORDERED: MIDAZOLAM HCL 5MG/ML 10ML VIAL 100 ML BAG IV ONE (13:59)
[2020-07-31] MEDS ORDERED: FENTANYL 2,000 MCG/250 ML BAG ONE (13:59)
[2020-08-01] VITALS (26 sets, daily range): BP systolic 88–112; BP diastolic 57–97
[2020-08-01] MEDS: FENTANYL 2000MCG/NS 250 250 ML IV SCH ×3 (02:00→14:37)
[2020-08-01] MEDS: MIDAZOLAM HCL 5MG/ML 10ML VIAL 100 ML IV PRN ×4 (03:12→19:27)
[2020-08-01 06:00] LABS: BASOPHILS # (AUTO) 0.1 (0.0-0.1); BASOPHILS % 0.8 % (0.0-1.0); EOSINOPHILS # (AUTO) 0.7 (0.0-0.4); EOSINOPHILS % 5.5 % (0.0-6.0); HEMATOCRIT 28.6 % (34.2-44.1); HEMOGLOBIN 8.5 g/dL (12.0-16.0); LYMPHOCYTES # (AUTO) 1.4 (1.0-3.2); LYMPHOCYTES % 10.7 % (18.0-39.1); MEAN CORPUSCULAR HEMOGLOBIN 28.2 pg (28-32); MEAN CORPUSCULAR HGB CONC 29.7 g/dL (31-35); MONOCYTES # (AUTO) 1.3 (0.2-0.8); NEUTROPHILS # (AUTO) 8.2 (2.1-6.9); NEUTROPHILS % 63.2 % (38.7-80.0); PLATELET COUNT 341 x10e3/uL (140-360); RED BLOOD COUNT 3.01 x10e6/uL (3.6-5.1); RED CELL DISTRIBUTION WIDTH 19.5 % (11.7-14.4)
[2020-08-01 06:09] LABS: ALANINE AMINOTRANSFERASE 82 IU/L (0-55); ALBUMIN/GLOBULIN RATIO 0.4 (0.8-2.0); ALKALINE PHOSPHATASE 132 IU/L (40-150); BLOOD UREA NITROGEN 12 mg/dL (7-26); BUN/CREATININE RATIO 23 (6-25); CALCIUM 8.2 mg/dL (8.4-10.2); CARBON DIOXIDE 32 mmol/L (22-29); CHLORIDE 96 mmol/L (98-107); CREATININE, SERUM 0.52 mg/dL (0.57-1.11); EST GLOMERULAR FILTRATION RATE > 60 ML/MIN (60-); GLUCOSE 167 mg/dL (74-118); SODIUM 137 mmol/L (136-145)
[2020-08-01 08:18] LABS: ABG HCO3 38 mmol/L (22-26); ABG PCO2 81 mmHg (35-45); ABG PH 7.28 (7.35-7.45); ABG PO2 101 mmHg (80-105); ABG TCO2 41
[2020-08-01] MEDS: ZINC SULFATE 220 MG CAP PO SCH (08:27)
[2020-08-01] MEDS: ASCORBIC ACID 500 MG TAB PO SCH ×2 (08:27→15:58)
[2020-08-01] MEDS: FAMOTIDINE 20 MG/2 ML VIAL IV SCH ×2 (08:27→15:58)
[2020-08-01] MEDS: KCL 20 MEQ PACKET/ ORAL SOLN NG SCH (08:27)
[2020-08-01] MEDS: DOCUSATE SODIUM LIQD 100 MG/10 ML UDC NG SCH ×2 (08:27→15:58)
[2020-08-01] MEDS: FUROSEMIDE INJ 10 MG/ML 2 ML VIAL IV SCH (08:27)
[2020-08-01] MEDS: CITALOPRAM HYDROBROMIDE 20 MG TAB PO SCH (08:31)
[2020-08-01 10:18] LABS: EOSINOPHILS % (MANUAL) 8 % (0-7); LYMPHOCYTES % (MANUAL) 13 % (19-48); METAMYELOCYTES % (MANUAL) 1 % (0-0); MONOCYTES % (MANUAL) 10 % (3.4-9.0); MYELOCYTES % (MANUAL) 6 % (0-0); NEUTROPHILS % (MANUAL) 60 % (40-74)
[2020-08-01 10:19] LABS: ANISOCYTOSIS SLIGHT; HYPOCHROMASIA SLIGHT; POLYCHROMASIA FEW
[2020-08-01 10:21] LABS: PLATELET ESTIMATE ADEQUATE; PLATELET MORPHOLOGY COMMENT FEW GIANT; RBC MORPHOLOGY COMMENT NORMAL
[2020-08-01] MEDS ORDERED: ALBUMIN 25% 25GM 100ML 0.25 GM/ML BTL IV SCH (15:30)
[2020-08-01] MEDS: ACETAZOLAMIDE 250 MG TAB PO SCH (15:58)
[2020-08-01] MEDS: FUROSEMIDE INJ 100 MG in SODIUM CHLORIDE 0.9% 100 ML 90 ML IV SCH (15:58)
[2020-08-01] MEDS: ALBUMIN 25% 25GM 100ML 100 ML IV SCH (15:58)
[2020-08-02] VITALS (24 sets, daily range): BP systolic 86–116; BP diastolic 50–65
[2020-08-02] MEDS: MIDAZOLAM HCL 5MG/ML 10ML VIAL 100 ML IV PRN ×4 (00:15→21:33)
[2020-08-02] MEDS: ACETAZOLAMIDE 250 MG TAB PO SCH ×2 (00:20→09:26)
[2020-08-02] MEDS: ALBUMIN 25% 25GM 100ML 100 ML IV SCH ×2 (00:20→09:26)
[2020-08-02] MEDS: NOREPINEPHRINE 8 MG/D5W 250 ML 250 ML IV PRN (01:03)
[2020-08-02] MEDS: FENTANYL 2000MCG/NS 250 250 ML IV SCH ×3 (04:34→17:49)
[2020-08-02 05:50] LABS: BASOPHILS # (AUTO) 0.1 (0.0-0.1); BASOPHILS % 0.6 % (0.0-1.0); EOSINOPHILS # (AUTO) 0.6 (0.0-0.4); EOSINOPHILS % 5.4 % (0.0-6.0); LYMPHOCYTES # (AUTO) 0.9 (1.0-3.2); LYMPHOCYTES % 8.4 % (18.0-39.1); MEAN CORPUSCULAR HEMOGLOBIN 27.8 pg (28-32); MEAN CORPUSCULAR HGB CONC 29.8 g/dL (31-35); MEAN CORPUSCULAR VOLUME 93.1 fL (81-99); MONOCYTES % 9.8 % (4.4-11.3); NEUTROPHILS # (AUTO) 6.7 (2.1-6.9); NEUTROPHILS % 64.9 % (38.7-80.0); PLATELET COUNT 328 x10e3/uL (140-360); RED BLOOD COUNT 2.45 x10e6/uL (3.6-5.1); RED CELL DISTRIBUTION WIDTH 19.6 % (11.7-14.4)
[2020-08-02 06:03] LABS: HEMATOCRIT 22.8 % (34.2-44.1); HEMOGLOBIN 6.8 g/dL (12.0-16.0)
[2020-08-02 06:06] LABS: ALANINE AMINOTRANSFERASE 67 IU/L (0-55); ALBUMIN 2.4 g/dL (3.5-5.0); ALBUMIN/GLOBULIN RATIO 0.7 (0.8-2.0); ALKALINE PHOSPHATASE 120 IU/L (40-150); ANION GAP 10.5 mmol/L (8-16); BLOOD UREA NITROGEN 14 mg/dL (7-26); BUN/CREATININE RATIO 24 (6-25); CALCIUM 8.2 mg/dL (8.4-10.2); CARBON DIOXIDE 38 mmol/L (22-29); CHLORIDE 92 mmol/L (98-107); CREATININE, SERUM 0.59 mg/dL (0.57-1.11); EST GLOMERULAR FILTRATION RATE > 60 ML/MIN (60-); GLUCOSE 185 mg/dL (74-118); POTASSIUM 3.5 mmol/L (3.5-5.1); SODIUM 137 mmol/L (136-145)
[2020-08-02] MEDS ORDERED: SODIUM CHLORIDE 0.9% 250ML 250 ML IV ONE (06:55)
[2020-08-02 08:48] LABS: ABG HCO3 37 mmol/L (22-26); ABG PCO2 64 mmHg (35-45); ABG PH 7.37 (7.35-7.45); ABG PO2 55 mmHg (80-105); ABG TCO2 39
[2020-08-02] MEDS: ENOXAPARIN SODIUM INJ 100 MG/ML SYR SC SCH ×2 (09:00→17:49)
[2020-08-02] MEDS: FAMOTIDINE 20 MG/2 ML VIAL IV SCH ×2 (09:26→17:48)
[2020-08-02] MEDS: DOCUSATE SODIUM LIQD 100 MG/10 ML UDC NG SCH ×2 (09:26→17:48)
[2020-08-02] MEDS: ASCORBIC ACID 500 MG TAB PO SCH ×2 (09:26→17:48)
[2020-08-02] MEDS: CITALOPRAM HYDROBROMIDE 20 MG TAB PO SCH (09:26)
[2020-08-02] MEDS: KCL 20 MEQ PACKET/ ORAL SOLN NG SCH (09:26)
[2020-08-02] MEDS: ZINC SULFATE 220 MG CAP PO SCH (09:26)
[2020-08-02] MEDS: ROCURONIUM BROMIDE 1,250 MG in SODIUM CHLORIDE 0.9% 250ML 125 ML IV PRN (10:12)
[2020-08-02] MEDS: FUROSEMIDE INJ 100 MG in SODIUM CHLORIDE 0.9% 100 ML 90 ML IV SCH (10:12)
[2020-08-02] MEDS ORDERED: MIDAZOLAM HCL 5MG/ML 10ML VIAL 100 ML BAG IV ONE (13:11)
[2020-08-02] MEDS ORDERED: FENTANYL 2,000 MCG/250 ML BAG ONE (13:11)
[2020-08-02] MEDS ORDERED: POTASSIUM CHLORIDE 20MEQ/100ML 200 ML IV ONE (15:00)
[2020-08-02] MEDS ORDERED: CITRATE OF MAGNESIA 300ML BOTTLE NG ONE (17:00)
[2020-08-03] VITALS (20 sets, daily range): BP systolic 91–146; BP diastolic 49–87
[2020-08-03] MEDS: FENTANYL 2000MCG/NS 250 250 ML IV SCH ×3 (00:53→21:30)
[2020-08-03] MEDS: FUROSEMIDE INJ 100 MG in SODIUM CHLORIDE 0.9% 100 ML 90 ML IV SCH (01:31)
[2020-08-03] MEDS: MIDAZOLAM HCL 5MG/ML 10ML VIAL 100 ML IV PRN ×4 (02:30→19:05)
[2020-08-03 06:13] LABS: BASOPHILS # (AUTO) 0.1 (0.0-0.1); BASOPHILS % 0.5 % (0.0-1.0); EOSINOPHILS # (AUTO) 0.7 (0.0-0.4); EOSINOPHILS % 5.3 % (0.0-6.0); HEMATOCRIT 28.3 % (34.2-44.1); HEMOGLOBIN 8.6 g/dL (12.0-16.0); LYMPHOCYTES % 8.4 % (18.0-39.1); MEAN CORPUSCULAR HEMOGLOBIN 28.3 pg (28-32); MEAN CORPUSCULAR HGB CONC 30.4 g/dL (31-35); MEAN CORPUSCULAR VOLUME 93.1 fL (81-99); MONOCYTES % 7.8 % (4.4-11.3); NEUTROPHILS # (AUTO) 8.3 (2.1-6.9); NEUTROPHILS % 67.6 % (38.7-80.0); PLATELET COUNT 338 x10e3/uL (140-360); RED BLOOD COUNT 3.04 x10e6/uL (3.6-5.1); RED CELL DISTRIBUTION WIDTH 19.4 % (11.7-14.4)
[2020-08-03 06:42] LABS: ALANINE AMINOTRANSFERASE 79 IU/L (0-55); ALBUMIN 2.8 g/dL (3.5-5.0); ALBUMIN/GLOBULIN RATIO 0.7 (0.8-2.0); ALKALINE PHOSPHATASE 145 IU/L (40-150); ANION GAP 13.6 mmol/L (8-16); BLOOD UREA NITROGEN 16 mg/dL (7-26); BUN/CREATININE RATIO 26 (6-25); CALCIUM 8.8 mg/dL (8.4-10.2); CARBON DIOXIDE 38 mmol/L (22-29); CHLORIDE 89 mmol/L (98-107); CREATININE, SERUM 0.61 mg/dL (0.57-1.11); EST GLOMERULAR FILTRATION RATE > 60 ML/MIN (60-); GLUCOSE 180 mg/dL (74-118); POTASSIUM 3.6 mmol/L (3.5-5.1); SODIUM 137 mmol/L (136-145)
[2020-08-03 08:26] LABS: ABG HCO3 39 mmol/L (22-26); ABG PCO2 64 mmHg (35-45); ABG PO2 63 mmHg (80-105); ABG TCO2 41
[2020-08-03 08:59] LABS: EOSINOPHILS % (MANUAL) 3 % (0-7); LYMPHOCYTES % (MANUAL) 5 % (19-48); MONOCYTES % (MANUAL) 13 % (3.4-9.0); MYELOCYTES % (MANUAL) 10 % (0-0); NEUTROPHILS % (MANUAL) 69 % (40-74)
[2020-08-03 09:00] LABS: ANISOCYTOSIS SLIGHT; PLATELET ESTIMATE ADEQUATE; PLATELET MORPHOLOGY COMMENT FEW LARGE
[2020-08-03 09:01] LABS: POLYCHROMASIA FEW; RBC MORPHOLOGY COMMENT ABNORMAL
[2020-08-03 09:02] LABS: STOMATOCYTES SLIGHT
[2020-08-03 09:03] LABS: PLATELET CLUMPS FEW
[2020-08-03] MEDS: CITALOPRAM HYDROBROMIDE 20 MG TAB PO SCH (09:30)
[2020-08-03] MEDS: DOCUSATE SODIUM LIQD 100 MG/10 ML UDC NG SCH ×2 (09:30→17:41)
[2020-08-03] MEDS: ASCORBIC ACID 500 MG TAB PO SCH ×2 (09:30→17:41)
[2020-08-03] MEDS: KCL 20 MEQ PACKET/ ORAL SOLN NG SCH (09:30)
[2020-08-03] MEDS: FAMOTIDINE 20 MG/2 ML VIAL IV SCH ×2 (09:30→17:41)
[2020-08-03] MEDS: ZINC SULFATE 220 MG CAP PO SCH (09:30)
[2020-08-03] MEDS: ENOXAPARIN SODIUM INJ 100 MG/ML SYR SC SCH ×2 (09:31→21:48)
[2020-08-03] MEDS: ROCURONIUM BROMIDE 1,250 MG in SODIUM CHLORIDE 0.9% 250ML 125 ML IV PRN ×2 (09:34→23:19)
[2020-08-03] MEDS: NOREPINEPHRINE 8 MG/D5W 250 ML 250 ML IV PRN (23:18)
[2020-08-04] VITALS (27 sets, daily range): BP systolic 98–146; BP diastolic 51–70
[2020-08-04] MEDS: MIDAZOLAM HCL 5MG/ML 10ML VIAL 100 ML IV PRN ×5 (00:16→20:47)
[2020-08-04] MEDS: FENTANYL 2000MCG/NS 250 250 ML IV SCH ×4 (04:00→23:53)
[2020-08-04] MEDS: FUROSEMIDE INJ 100 MG in SODIUM CHLORIDE 0.9% 100 ML 90 ML IV SCH ×2 (04:00→17:26)
[2020-08-04 05:07] LABS: BASOPHILS # (AUTO) 0.1 (0.0-0.1); BASOPHILS % 0.8 % (0.0-1.0); EOSINOPHILS # (AUTO) 0.6 (0.0-0.4); HEMATOCRIT 29.1 % (34.2-44.1); HEMOGLOBIN 9.2 g/dL (12.0-16.0); LYMPHOCYTES # (AUTO) 1.2 (1.0-3.2); LYMPHOCYTES % 8.2 % (18.0-39.1); MEAN CORPUSCULAR HEMOGLOBIN 28.3 pg (28-32); MEAN CORPUSCULAR HGB CONC 31.6 g/dL (31-35); MEAN CORPUSCULAR VOLUME 89.5 fL (81-99); MONOCYTES # (AUTO) 1.3 (0.2-0.8); MONOCYTES % 8.7 % (4.4-11.3); NEUTROPHILS # (AUTO) 10.1 (2.1-6.9); NEUTROPHILS % 69.8 % (38.7-80.0); PLATELET COUNT 404 x10e3/uL (140-360); RED BLOOD COUNT 3.25 x10e6/uL (3.6-5.1); RED CELL DISTRIBUTION WIDTH 19.7 % (11.7-14.4)
[2020-08-04 05:38] LABS: ALANINE AMINOTRANSFERASE 82 IU/L (0-55); ALBUMIN 2.6 g/dL (3.5-5.0); ALBUMIN/GLOBULIN RATIO 0.6 (0.8-2.0); ALKALINE PHOSPHATASE 164 IU/L (40-150); ANION GAP 15.4 mmol/L (8-16); BLOOD UREA NITROGEN 17 mg/dL (7-26); BUN/CREATININE RATIO 26 (6-25); CALCIUM 8.7 mg/dL (8.4-10.2); CARBON DIOXIDE 38 mmol/L (22-29); CHLORIDE 85 mmol/L (98-107); CREATININE, SERUM 0.65 mg/dL (0.57-1.11); EST GLOMERULAR FILTRATION RATE > 60 ML/MIN (60-); GLUCOSE 164 mg/dL (74-118); POTASSIUM 3.4 mmol/L (3.5-5.1); SODIUM 135 mmol/L (136-145)
[2020-08-04] MEDS: DOCUSATE SODIUM LIQD 100 MG/10 ML UDC NG SCH ×2 (08:56→16:20)
[2020-08-04] MEDS: CITALOPRAM HYDROBROMIDE 20 MG TAB PO SCH (08:56)
[2020-08-04] MEDS: ZINC SULFATE 220 MG CAP PO SCH (08:56)
[2020-08-04] MEDS: KCL 20 MEQ PACKET/ ORAL SOLN NG SCH (08:56)
[2020-08-04] MEDS: ASCORBIC ACID 500 MG TAB PO SCH ×2 (08:56→16:20)
[2020-08-04] MEDS: FAMOTIDINE 20 MG/2 ML VIAL IV SCH ×2 (08:56→16:20)
[2020-08-04 09:05] LABS: ABG HCO3 41 mmol/L (22-26); ABG PCO2 74 mmHg (35-45); ABG PH 7.35 (7.35-7.45); ABG PO2 165 mmHg (80-105); ABG TCO2 43
[2020-08-04 09:09] LABS: EOSINOPHILS % (MANUAL) 4 % (0-7); LYMPHOCYTES % (MANUAL) 10 % (19-48); MONOCYTES % (MANUAL) 7 % (3.4-9.0); NEUTROPHILS % (MANUAL) 79 % (40-74)
[2020-08-04] MEDS: ENOXAPARIN SODIUM INJ 100 MG/ML SYR SC SCH ×2 (09:17→21:13)
[2020-08-04] MEDS ORDERED: ALBUMIN 25% 25GM 100ML 0.25 GM/ML BTL IV SCH (10:30)
[2020-08-04] MEDS: ALBUMIN 25% 25GM 100ML 100 ML IV SCH ×2 (12:57→20:45)
[2020-08-04] MEDS: METOCLOPRAMIDE HCL 10 MG/2ML VIAL IV SCH ×2 (14:00→21:59)
[2020-08-04] MEDS ORDERED: POTASSIUM CHLORIDE 20MEQ/100ML 100 ML IV ONE (16:00)
[2020-08-04 22:03] LABS: BILIRUBIN,DIRECT 8.7 mg/dL (0.0-0.5)
[2020-08-05] VITALS (28 sets, daily range): BP systolic 92–156; BP diastolic 48–69
[2020-08-05] MEDS: MIDAZOLAM HCL 5MG/ML 10ML VIAL 100 ML IV PRN ×5 (01:33→22:10)
[2020-08-05] MEDS: ALBUMIN 25% 25GM 100ML 100 ML IV SCH (04:30)
[2020-08-05 05:20] LABS: BASOPHILS # (AUTO) 0.1 (0.0-0.1); BASOPHILS % 0.6 % (0.0-1.0); EOSINOPHILS # (AUTO) 0.4 (0.0-0.4); EOSINOPHILS % 2.6 % (0.0-6.0); HEMATOCRIT 28.9 % (34.2-44.1); HEMOGLOBIN 8.9 g/dL (12.0-16.0); LYMPHOCYTES # (AUTO) 1.7 (1.0-3.2); LYMPHOCYTES % 11.9 % (18.0-39.1); MEAN CORPUSCULAR HEMOGLOBIN 28.1 pg (28-32); MEAN CORPUSCULAR HGB CONC 30.8 g/dL (31-35); MEAN CORPUSCULAR VOLUME 91.2 fL (81-99); MONOCYTES # (AUTO) 1.2 (0.2-0.8); MONOCYTES % 8.5 % (4.4-11.3); NEUTROPHILS # (AUTO) 9.8 (2.1-6.9); PLATELET COUNT 380 x10e3/uL (140-360); RED BLOOD COUNT 3.17 x10e6/uL (3.6-5.1); RED CELL DISTRIBUTION WIDTH 20.1 % (11.7-14.4)
[2020-08-05] MEDS: METOCLOPRAMIDE HCL 10 MG/2ML VIAL IV SCH ×3 (05:20→21:46)
[2020-08-05 05:34] LABS: ALANINE AMINOTRANSFERASE 77 IU/L (0-55); ALBUMIN 3.2 g/dL (3.5-5.0); ALBUMIN/GLOBULIN RATIO 0.8 (0.8-2.0); ALKALINE PHOSPHATASE 151 IU/L (40-150); ANION GAP 16.2 mmol/L (8-16); BLOOD UREA NITROGEN 19 mg/dL (7-26); BUN/CREATININE RATIO 31 (6-25); CALCIUM 9.1 mg/dL (8.4-10.2); CARBON DIOXIDE 37 mmol/L (22-29); CHLORIDE 85 mmol/L (98-107); CREATININE, SERUM 0.61 mg/dL (0.57-1.11); EST GLOMERULAR FILTRATION RATE > 60 ML/MIN (60-); GLUCOSE 164 mg/dL (74-118); POTASSIUM 3.2 mmol/L (3.5-5.1); SODIUM 135 mmol/L (136-145)
[2020-08-05] MEDS: FENTANYL 2000MCG/NS 250 250 ML IV SCH ×3 (06:14→19:06)
[2020-08-05 08:37] LABS: ABG PCO2 66 mmHg (35-45); ABG PH 7.43 (7.35-7.45)
[2020-08-05 08:38] LABS: ABG HCO3 44 mmol/L (22-26); ABG PO2 63 mmHg (80-105); ABG TCO2 45
[2020-08-05] MEDS: KCL 20 MEQ PACKET/ ORAL SOLN NG SCH ×2 (08:57→17:25)
[2020-08-05] MEDS: DOCUSATE SODIUM LIQD 100 MG/10 ML UDC NG SCH ×2 (08:57→17:25)
[2020-08-05] MEDS: ENOXAPARIN SODIUM INJ 100 MG/ML SYR SC SCH ×2 (08:57→20:10)
[2020-08-05] MEDS: FAMOTIDINE 20 MG/2 ML VIAL IV SCH ×2 (08:57→17:25)
[2020-08-05] MEDS ORDERED: FENTANYL 2,000 MCG/250 ML BAG ONE (12:26)
[2020-08-05] MEDS ORDERED: MIDAZOLAM HCL 5MG/ML 10ML VIAL 100 ML BAG IV ONE (12:26)
[2020-08-05] MEDS: FUROSEMIDE INJ 100 MG in SODIUM CHLORIDE 0.9% 100 ML 90 ML IV SCH (14:52)
[2020-08-05] MEDS ORDERED: KCL 20 MEQ PACKET/ ORAL SOLN NG NR (15:15)
[2020-08-06] VITALS (25 sets, daily range): BP systolic 88–134; BP diastolic 41–72
[2020-08-06] MEDS: MIDAZOLAM HCL 5MG/ML 10ML VIAL 100 ML IV PRN ×4 (02:39→20:00)
[2020-08-06] MEDS: FENTANYL 2000MCG/NS 250 250 ML IV SCH ×3 (03:00→17:42)
[2020-08-06] MEDS: METOCLOPRAMIDE HCL 10 MG/2ML VIAL IV SCH ×3 (05:51→22:00)
[2020-08-06 06:35] LABS: BASOPHILS # (AUTO) 0.1 (0.0-0.1); BASOPHILS % 0.6 % (0.0-1.0); EOSINOPHILS # (AUTO) 0.4 (0.0-0.4); EOSINOPHILS % 2.9 % (0.0-6.0); HEMATOCRIT 28.2 % (34.2-44.1); HEMOGLOBIN 8.8 g/dL (12.0-16.0); LYMPHOCYTES # (AUTO) 1.6 (1.0-3.2); LYMPHOCYTES % 11.4 % (18.0-39.1); MEAN CORPUSCULAR HEMOGLOBIN 29.2 pg (28-32); MEAN CORPUSCULAR HGB CONC 31.2 g/dL (31-35); MEAN CORPUSCULAR VOLUME 93.7 fL (81-99); MONOCYTES # (AUTO) 1.2 (0.2-0.8); MONOCYTES % 8.8 % (4.4-11.3); NEUTROPHILS # (AUTO) 9.4 (2.1-6.9); NEUTROPHILS % 68.1 % (38.7-80.0); PLATELET COUNT 372 x10e3/uL (140-360); RED BLOOD COUNT 3.01 x10e6/uL (3.6-5.1); RED CELL DISTRIBUTION WIDTH 21.2 % (11.7-14.4)
[2020-08-06 07:25] LABS: ALANINE AMINOTRANSFERASE 81 IU/L (0-55); ALBUMIN 3.1 g/dL (3.5-5.0); ALBUMIN/GLOBULIN RATIO 0.8 (0.8-2.0); ALKALINE PHOSPHATASE 169 IU/L (40-150); ANION GAP 15.7 mmol/L (8-16); BLOOD UREA NITROGEN 22 mg/dL (7-26); BUN/CREATININE RATIO 39 (6-25); CALCIUM 8.9 mg/dL (8.4-10.2); CARBON DIOXIDE 40 mmol/L (22-29); CHLORIDE 87 mmol/L (98-107); CREATININE, SERUM 0.56 mg/dL (0.57-1.11); EST GLOMERULAR FILTRATION RATE > 60 ML/MIN (60-); GLUCOSE 197 mg/dL (74-118); POTASSIUM 3.7 mmol/L (3.5-5.1); SODIUM 139 mmol/L (136-145)
[2020-08-06] MEDS: ENOXAPARIN SODIUM INJ 100 MG/ML SYR SC SCH ×2 (09:00→22:00)
[2020-08-06 09:08] LABS: ABG HCO3 48 mmol/L (22-26); ABG PCO2 71 mmHg (35-45); ABG PH 7.44 (7.35-7.45); ABG PO2 66 mmHg (80-105)
[2020-08-06 09:09] LABS: ABG TCO2 > 50
[2020-08-06] MEDS: FAMOTIDINE 20 MG/2 ML VIAL IV SCH ×2 (09:25→16:39)
[2020-08-06] MEDS: DOCUSATE SODIUM LIQD 100 MG/10 ML UDC NG SCH ×2 (09:25→16:39)
[2020-08-06] MEDS: KCL 20 MEQ PACKET/ ORAL SOLN NG SCH ×2 (09:25→16:39)
[2020-08-06] MEDS ORDERED: ACETAZOLAMIDE 500 MG CAP PO SCH (14:00)
[2020-08-06] MEDS: ACETAZOLAMIDE 250 MG TAB PEG SCH (22:00)
[2020-08-07] VITALS (22 sets, daily range): BP systolic 97–143; BP diastolic 49–76
[2020-08-07] MEDS: FENTANYL 2000MCG/NS 250 250 ML IV SCH (02:00)
[2020-08-07] MEDS: MIDAZOLAM HCL 5MG/ML 10ML VIAL 100 ML IV PRN ×2 (04:00→17:27)
[2020-08-07 05:58] LABS: BASOPHILS # (AUTO) 0.1 (0.0-0.1); BASOPHILS % 0.7 % (0.0-1.0); EOSINOPHILS # (AUTO) 0.5 (0.0-0.4); EOSINOPHILS % 3.4 % (0.0-6.0); HEMATOCRIT 28.5 % (34.2-44.1); HEMOGLOBIN 8.8 g/dL (12.0-16.0); LYMPHOCYTES # (AUTO) 1.3 (1.0-3.2); LYMPHOCYTES % 9.1 % (18.0-39.1); MEAN CORPUSCULAR HEMOGLOBIN 30.6 pg (28-32); MEAN CORPUSCULAR HGB CONC 30.9 g/dL (31-35); MONOCYTES % 7.3 % (4.4-11.3); NEUTROPHILS # (AUTO) 9.8 (2.1-6.9); NEUTROPHILS % 68.9 % (38.7-80.0); PLATELET COUNT 349 x10e3/uL (140-360); RED BLOOD COUNT 2.88 x10e6/uL (3.6-5.1); RED CELL DISTRIBUTION WIDTH 22.5 % (11.7-14.4)
[2020-08-07] MEDS: METOCLOPRAMIDE HCL 10 MG/2ML VIAL IV SCH (06:01)
[2020-08-07 06:52] LABS: ALANINE AMINOTRANSFERASE 88 IU/L (0-55); ALBUMIN 2.9 g/dL (3.5-5.0); ALBUMIN/GLOBULIN RATIO 0.8 (0.8-2.0); ALKALINE PHOSPHATASE 176 IU/L (40-150); ANION GAP 10.9 mmol/L (8-16); BLOOD UREA NITROGEN 23 mg/dL (7-26); BUN/CREATININE RATIO 42 (6-25); CALCIUM 8.8 mg/dL (8.4-10.2); CARBON DIOXIDE 38 mmol/L (22-29); CHLORIDE 94 mmol/L (98-107); CREATININE, SERUM 0.55 mg/dL (0.57-1.11); EST GLOMERULAR FILTRATION RATE > 60 ML/MIN (60-); GLUCOSE 213 mg/dL (74-118); POTASSIUM 3.9 mmol/L (3.5-5.1); SODIUM 139 mmol/L (136-145)
[2020-08-07 08:02] LABS: ABG PCO2 79 mmHg (35-45); ABG PH 7.34 (7.35-7.45); ABG PO2 139 mmHg (80-105)
[2020-08-07 08:03] LABS: ABG HCO3 43 mmol/L (22-26); ABG TCO2 45
[2020-08-07] MEDS: ACETAZOLAMIDE 250 MG TAB PEG SCH (09:19)
[2020-08-07] MEDS: FAMOTIDINE 20 MG/2 ML VIAL IV SCH ×2 (09:19→17:40)
[2020-08-07] MEDS: ENOXAPARIN SODIUM INJ 100 MG/ML SYR SC SCH ×2 (09:19→20:25)
[2020-08-07] MEDS: KCL 20 MEQ PACKET/ ORAL SOLN NG SCH ×2 (09:19→17:40)
[2020-08-07] MEDS: DOCUSATE SODIUM LIQD 100 MG/10 ML UDC NG SCH ×2 (09:19→17:40)
[2020-08-07] MEDS ORDERED: CITRATE OF MAGNESIA 300ML BOTTLE PO ONE (12:00)
[2020-08-07] MEDS ORDERED: FENTANYL 2,000 MCG/250 ML BAG ONE (13:29)
[2020-08-07] MEDS ORDERED: MIDAZOLAM HCL 5MG/ML 10ML VIAL 100 ML BAG IV ONE (13:29)
[2020-08-07 13:30] LABS: INR 1.13; PROTHROMBIN TIME 15.2 seconds (11.9-14.5)
[2020-08-07 13:31] LABS: PARTIAL THROMBOPLASTIN TIME 38.5 seconds (23.8-35.5)
[2020-08-08] VITALS (25 sets, daily range): BP systolic 83–133; BP diastolic 42–75
[2020-08-08] MEDS: FENTANYL 2000MCG/NS 250 250 ML IV SCH (01:52)
[2020-08-08] MEDS: MIDAZOLAM HCL 5MG/ML 10ML VIAL 100 ML IV PRN (01:53)
[2020-08-08 05:23] LABS: BASOPHILS # (AUTO) 0.2 (0.0-0.1); BASOPHILS % 1.1 % (0.0-1.0); EOSINOPHILS # (AUTO) 0.6 (0.0-0.4); EOSINOPHILS % 3.6 % (0.0-6.0); HEMATOCRIT 30.2 % (34.2-44.1); HEMOGLOBIN 8.6 g/dL (12.0-16.0); LYMPHOCYTES # (AUTO) 1.8 (1.0-3.2); MEAN CORPUSCULAR HEMOGLOBIN 27.9 pg (28-32); MEAN CORPUSCULAR HGB CONC 28.5 g/dL (31-35); MEAN CORPUSCULAR VOLUME 98.1 fL (81-99); MONOCYTES # (AUTO) 1.3 (0.2-0.8); MONOCYTES % 8.2 % (4.4-11.3); NEUTROPHILS # (AUTO) 10.7 (2.1-6.9); NEUTROPHILS % 66.9 % (38.7-80.0); PLATELET COUNT 406 x10e3/uL (140-360); RED BLOOD COUNT 3.08 x10e6/uL (3.6-5.1); RED CELL DISTRIBUTION WIDTH 20.8 % (11.7-14.4)
[2020-08-08 05:36] LABS: ALANINE AMINOTRANSFERASE 88 IU/L (0-55); ALBUMIN 2.7 g/dL (3.5-5.0); ALBUMIN/GLOBULIN RATIO 0.7 (0.8-2.0); ALKALINE PHOSPHATASE 180 IU/L (40-150); ANION GAP 12.1 mmol/L (8-16); BLOOD UREA NITROGEN 26 mg/dL (7-26); BUN/CREATININE RATIO 48 (6-25); CALCIUM 9.1 mg/dL (8.4-10.2); CARBON DIOXIDE 35 mmol/L (22-29); CHLORIDE 99 mmol/L (98-107); CREATININE, SERUM 0.54 mg/dL (0.57-1.11); EST GLOMERULAR FILTRATION RATE > 60 ML/MIN (60-); GLUCOSE 194 mg/dL (74-118); POTASSIUM 4.1 mmol/L (3.5-5.1); SODIUM 142 mmol/L (136-145)
[2020-08-08 07:38] LABS: ANISOCYTOSIS MARKED; EOSINOPHILS % (MANUAL) 1 % (0-7); HYPOCHROMASIA SLIGHT; LYMPHOCYTES % (MANUAL) 8 % (19-48); MONOCYTES % (MANUAL) 5 % (3.4-9.0); MYELOCYTES % (MANUAL) 5 % (0-0); NEUTROPHILS % (MANUAL) 79 % (40-74); PLATELET ESTIMATE SLIGHTLY INCREASED
[2020-08-08 07:39] LABS: POLYCHROMASIA FEW; STOMATOCYTES SLIGHT; TARGET CELLS FEW
[2020-08-08 07:40] LABS: PLATELET MORPHOLOGY COMMENT RARE EDTA CLUMPING; RBC MORPHOLOGY COMMENT ABNORMAL
[2020-08-08 07:45] LABS: ABG HCO3 40 mmol/L (22-26); ABG PCO2 85 mmHg (35-45); ABG PH 7.28 (7.35-7.45); ABG PO2 80 mmHg (80-105); ABG TCO2 42
[2020-08-08] MEDS: ENOXAPARIN SODIUM INJ 100 MG/ML SYR SC SCH ×2 (11:20→20:42)
[2020-08-08] MEDS: FAMOTIDINE 20 MG/2 ML VIAL IV SCH ×2 (11:20→15:27)
[2020-08-08] MEDS: KCL 20 MEQ PACKET/ ORAL SOLN NG SCH ×2 (11:20→15:27)
[2020-08-08] MEDS: DOCUSATE SODIUM LIQD 100 MG/10 ML UDC NG SCH ×2 (11:20→15:27)
[2020-08-08] MEDS ORDERED: ALBUMIN 25% 25GM 100ML 0.25 GM/ML BTL IV SCH (12:15)
[2020-08-08] MEDS: ACETAZOLAMIDE 500 MG CAP PO SCH ×2 (15:26→20:42)
[2020-08-08] MEDS: ALBUMIN 25% 25GM 100ML 100 ML IV SCH ×2 (15:26→20:42)
[2020-08-09] VITALS (24 sets, daily range): BP systolic 90–119; BP diastolic 45–67
[2020-08-09] MEDS: ALBUMIN 25% 25GM 100ML 100 ML IV SCH (05:55)
[2020-08-09 06:06] LABS: BASOPHILS # (AUTO) 0.1 (0.0-0.1); BASOPHILS % 0.7 % (0.0-1.0); EOSINOPHILS # (AUTO) 0.3 (0.0-0.4); EOSINOPHILS % 1.9 % (0.0-6.0); HEMATOCRIT 27.4 % (34.2-44.1); LYMPHOCYTES # (AUTO) 1.5 (1.0-3.2); LYMPHOCYTES % 9.5 % (18.0-39.1); MEAN CORPUSCULAR HGB CONC 29.2 g/dL (31-35); MEAN CORPUSCULAR VOLUME 99.3 fL (81-99); MONOCYTES # (AUTO) 1.3 (0.2-0.8); MONOCYTES % 8.4 % (4.4-11.3); NEUTROPHILS # (AUTO) 11.1 (2.1-6.9); NEUTROPHILS % 71.1 % (38.7-80.0); PLATELET COUNT 351 x10e3/uL (140-360); RED BLOOD COUNT 2.76 x10e6/uL (3.6-5.1); RED CELL DISTRIBUTION WIDTH 21.3 % (11.7-14.4)
[2020-08-09 06:55] LABS: ALANINE AMINOTRANSFERASE 86 IU/L (0-55); ALBUMIN/GLOBULIN RATIO 0.8 (0.8-2.0); ALKALINE PHOSPHATASE 181 IU/L (40-150); ANION GAP 13.7 mmol/L (8-16); BLOOD UREA NITROGEN 30 mg/dL (7-26); BUN/CREATININE RATIO 49 (6-25); CALCIUM 9.5 mg/dL (8.4-10.2); CARBON DIOXIDE 33 mmol/L (22-29); CHLORIDE 102 mmol/L (98-107); CREATININE, SERUM 0.61 mg/dL (0.57-1.11); EST GLOMERULAR FILTRATION RATE > 60 ML/MIN (60-); GLUCOSE 207 mg/dL (74-118); POTASSIUM 3.7 mmol/L (3.5-5.1); SODIUM 145 mmol/L (136-145)
[2020-08-09 08:13] LABS: BAND NEUTROPHILS % (MANUAL) 6 %; EOSINOPHILS % (MANUAL) 1 % (0-7); LYMPHOCYTES % (MANUAL) 8 % (19-48); MONOCYTES % (MANUAL) 7 % (3.4-9.0); NEUTROPHILS % (MANUAL) 78 % (40-74)
[2020-08-09 08:51] LABS: ABG PH 7.41 (7.35-7.45)
[2020-08-09 08:52] LABS: ABG HCO3 28 mmol/L (22-26); ABG PCO2 51 mmHg (35-45); ABG PO2 105 mmHg (80-105); ABG TCO2 29
[2020-08-09] MEDS: DOCUSATE SODIUM LIQD 100 MG/10 ML UDC NG SCH ×2 (09:00→18:36)
[2020-08-09] MEDS: ENOXAPARIN SODIUM INJ 100 MG/ML SYR SC SCH (10:09)
[2020-08-09] MEDS: ACETAZOLAMIDE 500 MG CAP PO SCH (10:09)
[2020-08-09] MEDS: KCL 20 MEQ PACKET/ ORAL SOLN NG SCH ×2 (10:09→18:36)
[2020-08-09] MEDS: FAMOTIDINE 20 MG/2 ML VIAL IV SCH ×2 (10:09→18:36)
[2020-08-09] MEDS: ENOXAPARIN SOD INJ 40 MG/0.4 ML SYR SC SCH (20:37)
[2020-08-09] MEDS: FENTANYL 2000MCG/NS 250 250 ML IV SCH (21:10)
[2020-08-10] VITALS (18 sets, daily range): BP systolic 94–133; BP diastolic 54–82
[2020-08-10 06:18] LABS: BASOPHILS # (AUTO) 0.1 (0.0-0.1); BASOPHILS % 0.8 % (0.0-1.0); EOSINOPHILS # (AUTO) 0.5 (0.0-0.4); EOSINOPHILS % 3.2 % (0.0-6.0); HEMATOCRIT 27.3 % (34.2-44.1); LYMPHOCYTES % 12.9 % (18.0-39.1); MEAN CORPUSCULAR HEMOGLOBIN 28.2 pg (28-32); MEAN CORPUSCULAR HGB CONC 29.3 g/dL (31-35); MEAN CORPUSCULAR VOLUME 96.1 fL (81-99); MONOCYTES # (AUTO) 1.1 (0.2-0.8); MONOCYTES % 7.1 % (4.4-11.3); NEUTROPHILS # (AUTO) 10.4 (2.1-6.9); NEUTROPHILS % 67.6 % (38.7-80.0); PLATELET COUNT 361 x10e3/uL (140-360); RED BLOOD COUNT 2.84 x10e6/uL (3.6-5.1); RED CELL DISTRIBUTION WIDTH 21.8 % (11.7-14.4)
[2020-08-10 06:47] LABS: ALANINE AMINOTRANSFERASE 88 IU/L (0-55); ALBUMIN 2.9 g/dL (3.5-5.0); ALBUMIN/GLOBULIN RATIO 0.7 (0.8-2.0); ALKALINE PHOSPHATASE 190 IU/L (40-150); ANION GAP 13.7 mmol/L (8-16); BLOOD UREA NITROGEN 34 mg/dL (7-26); BUN/CREATININE RATIO 60 (6-25); CALCIUM 9.7 mg/dL (8.4-10.2); CARBON DIOXIDE 32 mmol/L (22-29); CHLORIDE 104 mmol/L (98-107); CREATININE, SERUM 0.57 mg/dL (0.57-1.11); EST GLOMERULAR FILTRATION RATE > 60 ML/MIN (60-); GLUCOSE 173 mg/dL (74-118); POTASSIUM 3.7 mmol/L (3.5-5.1); SODIUM 146 mmol/L (136-145)
[2020-08-10] MEDS: DOCUSATE SODIUM LIQD 100 MG/10 ML UDC NG SCH ×2 (08:22→17:00)
[2020-08-10] MEDS: FAMOTIDINE 20 MG/2 ML VIAL IV SCH ×2 (08:22→17:10)
[2020-08-10] MEDS: ENOXAPARIN SOD INJ 40 MG/0.4 ML SYR SC SCH ×2 (08:22→20:56)
[2020-08-10] MEDS: KCL 20 MEQ PACKET/ ORAL SOLN NG SCH ×2 (08:22→17:00)
[2020-08-10 09:19] LABS: ABG HCO3 33 mmol/L (22-26); ABG PCO2 57 mmHg (35-45); ABG PH 7.37 (7.35-7.45); ABG PO2 87 mmHg (80-105); ABG TCO2 35
[2020-08-10 10:13] LABS: BAND NEUTROPHILS % (MANUAL) 1 %; EOSINOPHILS % (MANUAL) 1 % (0-7); LYMPHOCYTES % (MANUAL) 9 % (19-48); MONOCYTES % (MANUAL) 6 % (3.4-9.0); MYELOCYTES % (MANUAL) 8 % (0-0); NEUTROPHILS % (MANUAL) 75 % (40-74); NUCLEATED RED BLOOD CELLS 1
[2020-08-10 10:16] LABS: ANISOCYTOSIS MARKED; PLATELET ESTIMATE SLIGHTLY INCREASED; PLATELET MORPHOLOGY COMMENT NORMAL; RBC MORPHOLOGY COMMENT ABNORMAL; TARGET CELLS FEW
[2020-08-10 10:17] LABS: POLYCHROMASIA FEW
[2020-08-10 10:18] LABS: STOMATOCYTES SLIGHT
[2020-08-10 10:19] LABS: HYPOCHROMASIA MODERATE
[2020-08-10] MEDS ORDERED: ROCURONIUM BROMIDE 10 MG/ML 5ML VIAL IV ONE (12:03)
[2020-08-10] MEDS ORDERED: SEVOFLURANE INHAL SOLN 250 ML PEN BTL ONE (12:03)
[2020-08-10] MEDS ORDERED: BUPIVACAINE 0.5%/EPI 30 ML SDV INJ ONE (13:25)
[2020-08-10] MEDS ORDERED: MIDAZOLAM HCL 5MG/ML 10ML VIAL 100 ML IV PRN (14:00)
[2020-08-10] MEDS: FENTANYL 2000MCG/NS 250 250 ML IV SCH (14:00)
[2020-08-10] MEDS ORDERED: BALANCED SALT SOLN (OPTH) 15 ML BTL IO ONE (16:00)
[2020-08-10] MEDS: PROPOFOL IV EMULSION 10MG/ML 100 ML IV SCH (20:55)
[2020-08-11] VITALS (25 sets, daily range): BP systolic 90–133; BP diastolic 50–82
[2020-08-11 05:52] LABS: BASOPHILS # (AUTO) 0.1 (0.0-0.1); BASOPHILS % 0.7 % (0.0-1.0); EOSINOPHILS # (AUTO) 0.1 (0.0-0.4); EOSINOPHILS % 0.5 % (0.0-6.0); HEMOGLOBIN 7.7 g/dL (12.0-16.0); LYMPHOCYTES # (AUTO) 1.5 (1.0-3.2); LYMPHOCYTES % 9.6 % (18.0-39.1); MEAN CORPUSCULAR HEMOGLOBIN 27.9 pg (28-32); MEAN CORPUSCULAR HGB CONC 28.5 g/dL (31-35); MEAN CORPUSCULAR VOLUME 97.8 fL (81-99); MONOCYTES % 6.1 % (4.4-11.3); NEUTROPHILS # (AUTO) 11.9 (2.1-6.9); NEUTROPHILS % 75.3 % (38.7-80.0); PLATELET COUNT 351 x10e3/uL (140-360); RED BLOOD COUNT 2.76 x10e6/uL (3.6-5.1); RED CELL DISTRIBUTION WIDTH 22.1 % (11.7-14.4)
[2020-08-11 06:14] LABS: ALANINE AMINOTRANSFERASE 77 IU/L (0-55); ALBUMIN 2.7 g/dL (3.5-5.0); ALBUMIN/GLOBULIN RATIO 0.7 (0.8-2.0); ALKALINE PHOSPHATASE 169 IU/L (40-150); ANION GAP 15.3 mmol/L (8-16); BLOOD UREA NITROGEN 33 mg/dL (7-26); BUN/CREATININE RATIO 52 (6-25); CALCIUM 9.4 mg/dL (8.4-10.2); CARBON DIOXIDE 33 mmol/L (22-29); CHLORIDE 107 mmol/L (98-107); CREATININE, SERUM 0.63 mg/dL (0.57-1.11); EST GLOMERULAR FILTRATION RATE > 60 ML/MIN (60-); GLUCOSE 181 mg/dL (74-118); POTASSIUM 3.3 mmol/L (3.5-5.1); SODIUM 152 mmol/L (136-145)
[2020-08-11] MEDS: KCL 20 MEQ PACKET/ ORAL SOLN NG SCH ×2 (09:00→19:00)
[2020-08-11] MEDS: DOCUSATE SODIUM LIQD 100 MG/10 ML UDC NG SCH ×2 (09:00→19:00)
[2020-08-11 09:06] LABS: ABG HCO3 36 mmol/L (22-26); ABG PCO2 62 mmHg (35-45); ABG PH 7.37 (7.35-7.45); ABG PO2 78 mmHg (80-105); ABG TCO2 37
[2020-08-11] MEDS: FAMOTIDINE 20 MG/2 ML VIAL IV SCH ×2 (09:15→19:00)
[2020-08-11] MEDS: ENOXAPARIN SOD INJ 40 MG/0.4 ML SYR SC SCH (09:15)
[2020-08-11] MEDS ORDERED: SODIUM CHLORIDE 0.45% 500 ML IV ONE (13:15)
[2020-08-11] MEDS: FENTANYL 2000MCG/NS 250 250 ML IV SCH (14:00)
[2020-08-11] MEDS: PROPOFOL IV EMULSION 10MG/ML 100 ML IV SCH (20:27)
[2020-08-11] MEDS: ENOXAPARIN SODIUM INJ 100 MG/ML SYR SC SCH (20:27)
[2020-08-12] VITALS (25 sets, daily range): BP systolic 113–137; BP diastolic 51–65
[2020-08-12 05:02] LABS: BASOPHILS # (AUTO) 0.1 (0.0-0.1); BASOPHILS % 0.7 % (0.0-1.0); EOSINOPHILS # (AUTO) 0.1 (0.0-0.4); EOSINOPHILS % 0.5 % (0.0-6.0); HEMATOCRIT 27.3 % (34.2-44.1); HEMOGLOBIN 7.8 g/dL (12.0-16.0); LYMPHOCYTES # (AUTO) 1.5 (1.0-3.2); LYMPHOCYTES % 9.6 % (18.0-39.1); MEAN CORPUSCULAR HEMOGLOBIN 27.5 pg (28-32); MEAN CORPUSCULAR HGB CONC 28.6 g/dL (31-35); MEAN CORPUSCULAR VOLUME 96.1 fL (81-99); MONOCYTES # (AUTO) 1.5 (0.2-0.8); MONOCYTES % 9.8 % (4.4-11.3); NEUTROPHILS # (AUTO) 11.1 (2.1-6.9); NEUTROPHILS % 72.5 % (38.7-80.0); PLATELET COUNT 354 x10e3/uL (140-360); RED BLOOD COUNT 2.84 x10e6/uL (3.6-5.1); RED CELL DISTRIBUTION WIDTH 22.2 % (11.7-14.4)
[2020-08-12 05:26] LABS: ALANINE AMINOTRANSFERASE 70 IU/L (0-55); ALBUMIN 2.5 g/dL (3.5-5.0); ALBUMIN/GLOBULIN RATIO 0.6 (0.8-2.0); ALKALINE PHOSPHATASE 155 IU/L (40-150); BLOOD UREA NITROGEN 29 mg/dL (7-26); BUN/CREATININE RATIO 46 (6-25); CALCIUM 9.3 mg/dL (8.4-10.2); CARBON DIOXIDE 34 mmol/L (22-29); CHLORIDE 107 mmol/L (98-107); CREATININE, SERUM 0.63 mg/dL (0.57-1.11); EST GLOMERULAR FILTRATION RATE > 60 ML/MIN (60-); GLUCOSE 190 mg/dL (74-118); SODIUM 153 mmol/L (136-145)
[2020-08-12] MEDS: DOCUSATE SODIUM LIQD 100 MG/10 ML UDC NG SCH ×2 (07:59→16:48)
[2020-08-12] MEDS: FAMOTIDINE 20 MG/2 ML VIAL IV SCH ×2 (07:59→16:48)
[2020-08-12] MEDS: ENOXAPARIN SODIUM INJ 100 MG/ML SYR SC SCH ×2 (09:00→20:10)
[2020-08-12 09:50] LABS: ABG HCO3 40 mmol/L (22-26); ABG PCO2 63 mmHg (35-45); ABG PH 7.42 (7.35-7.45); ABG PO2 87 mmHg (80-105); ABG TCO2 42
[2020-08-12] MEDS: KCL 20 MEQ PACKET/ ORAL SOLN NG SCH ×2 (10:12→16:48)
[2020-08-12] MEDS: FENTANYL 2000MCG/NS 250 250 ML IV SCH ×2 (14:00→23:30)
[2020-08-12 15:26] LABS: ABG HCO3 41 mmol/L (22-26); ABG PCO2 71 mmHg (35-45); ABG PH 7.37 (7.35-7.45); ABG PO2 72 mmHg (80-105); ABG TCO2 43
[2020-08-12] MEDS: PROPOFOL IV EMULSION 10MG/ML 100 ML IV SCH (20:10)
[2020-08-13] VITALS (25 sets, daily range): BP systolic 101–120; BP diastolic 52–62
[2020-08-13] MEDS: PROPOFOL IV EMULSION 10MG/ML 100 ML IV SCH (04:40)
[2020-08-13 06:00] LABS: BASOPHILS # (AUTO) 0.1 (0.0-0.1); BASOPHILS % 0.5 % (0.0-1.0); EOSINOPHILS # (AUTO) 0.1 (0.0-0.4); EOSINOPHILS % 0.9 % (0.0-6.0); HEMATOCRIT 29.9 % (34.2-44.1); HEMOGLOBIN 8.3 g/dL (12.0-16.0); LYMPHOCYTES # (AUTO) 1.3 (1.0-3.2); LYMPHOCYTES % 8.8 % (18.0-39.1); MEAN CORPUSCULAR HEMOGLOBIN 28.3 pg (28-32); MEAN CORPUSCULAR HGB CONC 27.8 g/dL (31-35); MONOCYTES # (AUTO) 1.3 (0.2-0.8); MONOCYTES % 8.9 % (4.4-11.3); NEUTROPHILS % 73.9 % (38.7-80.0); PLATELET COUNT 321 x10e3/uL (140-360); RED BLOOD COUNT 2.93 x10e6/uL (3.6-5.1); RED CELL DISTRIBUTION WIDTH 22.2 % (11.7-14.4)
[2020-08-13 06:27] LABS: ALANINE AMINOTRANSFERASE 103 IU/L (0-55); ALBUMIN 2.4 g/dL (3.5-5.0); ALBUMIN/GLOBULIN RATIO 0.5 (0.8-2.0); ALKALINE PHOSPHATASE 215 IU/L (40-150); ANION GAP 13.6 mmol/L (8-16); CALCIUM 9.8 mg/dL (8.4-10.2); CARBON DIOXIDE 38 mmol/L (22-29); CHLORIDE 108 mmol/L (98-107); SODIUM 155 mmol/L (136-145)
[2020-08-13 06:36] LABS: POTASSIUM 4.6 mmol/L (3.5-5.1)
[2020-08-13 06:51] LABS: BLOOD UREA NITROGEN 30 mg/dL (7-26); BUN/CREATININE RATIO 46 (6-25); CREATININE, SERUM 0.65 mg/dL (0.57-1.11); EST GLOMERULAR FILTRATION RATE > 60 ML/MIN (60-); GLUCOSE 260 mg/dL (74-118)
[2020-08-13 08:32] LABS: ABG HCO3 40 mmol/L (22-26); ABG PCO2 81 mmHg (35-45); ABG PO2 56 mmHg (80-105); ABG TCO2 43
[2020-08-13] MEDS: ENOXAPARIN SODIUM INJ 100 MG/ML SYR SC SCH ×2 (09:00→22:00)
[2020-08-13] MEDS: KCL 20 MEQ PACKET/ ORAL SOLN NG SCH ×2 (09:00→18:11)
[2020-08-13] MEDS: DOCUSATE SODIUM LIQD 100 MG/10 ML UDC NG SCH ×2 (09:00→18:11)
[2020-08-13] MEDS: FAMOTIDINE 20 MG/2 ML VIAL IV SCH ×2 (09:00→18:11)
[2020-08-13] MEDS ORDERED: MIDAZOLAM HCL 5MG/ML 10ML VIAL 100 ML BAG IV ONE (10:30)
[2020-08-13] MEDS ORDERED: PROPOFOL IV EMULSION 10MG/ML 100ML BTL ONE (10:30)
[2020-08-13] MEDS ORDERED: FENTANYL 2,000 MCG/250 ML BAG ONE (10:30)
[2020-08-13] MEDS ORDERED: DEXTROSE 5% 1,000 ML IV ONE ×2 (16:30→23:22)
[2020-08-13] MEDS: ACETAZOLAMIDE 500 MG CAP PO SCH ×2 (18:11→21:00)
[2020-08-13] MEDS ORDERED: ACETAZOLAMIDE 250 MG TAB PEG ONE (21:00)
[2020-08-13] MEDS: FENTANYL 2000MCG/NS 250 250 ML IV SCH (22:00)
[2020-08-14] VITALS (20 sets, daily range): BP systolic 101–133; BP diastolic 46–70
[2020-08-14] MEDS: PROPOFOL IV EMULSION 10MG/ML 100 ML IV SCH (05:46)
[2020-08-14 06:10] LABS: BASOPHILS # (AUTO) 0.1 (0.0-0.1); BASOPHILS % 0.6 % (0.0-1.0); EOSINOPHILS # (AUTO) 0.2 (0.0-0.4); EOSINOPHILS % 1.7 % (0.0-6.0); HEMATOCRIT 28.2 % (34.2-44.1); LYMPHOCYTES # (AUTO) 1.6 (1.0-3.2); LYMPHOCYTES % 10.8 % (18.0-39.1); MEAN CORPUSCULAR HGB CONC 28.4 g/dL (31-35); MEAN CORPUSCULAR VOLUME 102.2 fL (81-99); NEUTROPHILS % 69.2 % (38.7-80.0); PLATELET COUNT 312 x10e3/uL (140-360); RED BLOOD COUNT 2.76 x10e6/uL (3.6-5.1); RED CELL DISTRIBUTION WIDTH 22.2 % (11.7-14.4)
[2020-08-14 06:16] LABS: INR 1.1; PROTHROMBIN TIME 14.9 seconds (11.9-14.5)
[2020-08-14 06:44] LABS: ALANINE AMINOTRANSFERASE 101 IU/L (0-55); ALBUMIN 2.2 g/dL (3.5-5.0); ALBUMIN/GLOBULIN RATIO 0.5 (0.8-2.0); ALKALINE PHOSPHATASE 188 IU/L (40-150); ANION GAP 12.5 mmol/L (8-16); BLOOD UREA NITROGEN 34 mg/dL (7-26); BUN/CREATININE RATIO 49 (6-25); CALCIUM 9.3 mg/dL (8.4-10.2); CARBON DIOXIDE 36 mmol/L (22-29); CHLORIDE 108 mmol/L (98-107); CREATININE, SERUM 0.69 mg/dL (0.57-1.11); EST GLOMERULAR FILTRATION RATE > 60 ML/MIN (60-); GLUCOSE 212 mg/dL (74-118); POTASSIUM 4.5 mmol/L (3.5-5.1); SODIUM 152 mmol/L (136-145)
[2020-08-14 08:13] LABS: BAND NEUTROPHILS % (MANUAL) 2 %; EOSINOPHILS % (MANUAL) 1 % (0-7); LYMPHOCYTES % (MANUAL) 10 % (19-48); METAMYELOCYTES % (MANUAL) 2 % (0-0); MONOCYTES % (MANUAL) 10 % (3.4-9.0); MYELOCYTES % (MANUAL) 7 % (0-0); NEUTROPHILS % (MANUAL) 67 % (40-74); PROMYELOCYTES % (MANUAL) 1 % (0-0)
[2020-08-14] MEDS: FAMOTIDINE 20 MG/2 ML VIAL IV SCH (08:14)
[2020-08-14] MEDS: KCL 20 MEQ PACKET/ ORAL SOLN NG SCH ×2 (08:14→17:30)
[2020-08-14] MEDS: DOCUSATE SODIUM LIQD 100 MG/10 ML UDC NG SCH ×2 (08:14→17:30)
[2020-08-14] MEDS: ENOXAPARIN SODIUM INJ 100 MG/ML SYR SC SCH ×2 (08:14→21:32)
[2020-08-14 08:16] LABS: HYPOCHROMASIA MODERATE
[2020-08-14 08:17] LABS: ANISOCYTOSIS MODERATE
[2020-08-14 08:18] LABS: PLATELET ESTIMATE ADEQUATE; PLATELET MORPHOLOGY COMMENT NORMAL; RBC MORPHOLOGY COMMENT ABNORMAL
[2020-08-14 09:10] LABS: ABG HCO3 41 mmol/L (22-26); ABG PCO2 67 mmHg (35-45); ABG PH 7.39 (7.35-7.45); ABG PO2 67 mmHg (80-105); ABG TCO2 42
[2020-08-15] VITALS (23 sets, daily range): BP systolic 88–127; BP diastolic 42–68
[2020-08-15 05:35] LABS: BASOPHILS # (AUTO) 0.1 (0.0-0.1); BASOPHILS % 0.8 % (0.0-1.0); EOSINOPHILS # (AUTO) 0.5 (0.0-0.4); EOSINOPHILS % 3.6 % (0.0-6.0); HEMATOCRIT 27.7 % (34.2-44.1); HEMOGLOBIN 7.8 g/dL (12.0-16.0); LYMPHOCYTES # (AUTO) 1.8 (1.0-3.2); LYMPHOCYTES % 12.2 % (18.0-39.1); MEAN CORPUSCULAR HEMOGLOBIN 27.8 pg (28-32); MEAN CORPUSCULAR HGB CONC 28.2 g/dL (31-35); MEAN CORPUSCULAR VOLUME 98.6 fL (81-99); MONOCYTES % 6.6 % (4.4-11.3); NEUTROPHILS # (AUTO) 9.7 (2.1-6.9); NEUTROPHILS % 66.3 % (38.7-80.0); PLATELET COUNT 319 x10e3/uL (140-360); RED BLOOD COUNT 2.81 x10e6/uL (3.6-5.1); RED CELL DISTRIBUTION WIDTH 21.5 % (11.7-14.4)
[2020-08-15 06:10] LABS: ALANINE AMINOTRANSFERASE 101 IU/L (0-55); ALBUMIN 2.1 g/dL (3.5-5.0); ALBUMIN/GLOBULIN RATIO 0.5 (0.8-2.0); ALKALINE PHOSPHATASE 226 IU/L (40-150); ANION GAP 12.7 mmol/L (8-16); BLOOD UREA NITROGEN 33 mg/dL (7-26); BUN/CREATININE RATIO 49 (6-25); CALCIUM 9.4 mg/dL (8.4-10.2); CARBON DIOXIDE 36 mmol/L (22-29); CHLORIDE 108 mmol/L (98-107); CREATININE, SERUM 0.67 mg/dL (0.57-1.11); EST GLOMERULAR FILTRATION RATE > 60 ML/MIN (60-); GLUCOSE 190 mg/dL (74-118); POTASSIUM 3.7 mmol/L (3.5-5.1); SODIUM 153 mmol/L (136-145)
[2020-08-15 08:13] LABS: BAND NEUTROPHILS % (MANUAL) 7 %; EOSINOPHILS % (MANUAL) 2 % (0-7); LYMPHOCYTES % (MANUAL) 10 % (19-48); MONOCYTES % (MANUAL) 5 % (3.4-9.0); NEUTROPHILS % (MANUAL) 76 % (40-74)
[2020-08-15 08:21] LABS: ABG HCO3 40 mmol/L (22-26); ABG PCO2 67 mmHg (35-45); ABG PH 7.39 (7.35-7.45); ABG PO2 109 mmHg (80-105); ABG TCO2 42
[2020-08-15] MEDS ORDERED: DEXTROSE 5% 500 ML IV ONE (10:15)
[2020-08-15] MEDS: KCL 20 MEQ PACKET/ ORAL SOLN NG SCH ×2 (10:46→18:07)
[2020-08-15] MEDS: ENOXAPARIN SODIUM INJ 100 MG/ML SYR SC SCH ×2 (10:46→22:00)
[2020-08-15] MEDS: DOCUSATE SODIUM LIQD 100 MG/10 ML UDC NG SCH (10:46)
[2020-08-15 12:11] LABS: INR 1.1; PROTHROMBIN TIME 14.9 seconds (11.9-14.5)
[2020-08-15 16:47] LABS: ABG HCO3 40 mmol/L (22-26); ABG PCO2 71 mmHg (35-45); ABG PH 7.36 (7.35-7.45); ABG PO2 71 mmHg (80-105); ABG TCO2 42
[2020-08-15] MEDS ORDERED: ACETAMINOPHEN 325 MG TAB PO PRN (19:30)
[2020-08-15] MEDS ORDERED: ACETAMINOPHEN 1000 MG/100 ML IV STA (19:35)
[2020-08-15] MEDS: PROPOFOL IV EMULSION 10MG/ML 100 ML IV SCH (19:45)
[2020-08-15] MEDS: VANCOMYCIN 1GM/NS 250 ML 250 ML IV SCH (21:00)
[2020-08-15] MEDS ORDERED: ACETAMINOPHEN 1000 MG/100 ML 100 ML IV ONE (21:09)
[2020-08-15] MEDS ORDERED: HEPARIN SOD/SOD CHLORIDE 1,000 ML ONE (21:11)
[2020-08-15] MEDS: MEROPENEM 1GRAM 1 GM in SODIUM CHLORIDE 0.9% 100 ML 100 ML IV SCH (22:47)
[2020-08-16] VITALS (24 sets, daily range): BP systolic 87–117; BP diastolic 41–71
[2020-08-16] MEDS: MEROPENEM 1GRAM 1 GM in SODIUM CHLORIDE 0.9% 100 ML 100 ML IV SCH ×3 (06:00→22:00)
[2020-08-16 06:13] LABS: BASOPHILS # (AUTO) 0.1 (0.0-0.1); BASOPHILS % 0.5 % (0.0-1.0); EOSINOPHILS % 0.2 % (0.0-6.0); HEMATOCRIT 26.5 % (34.2-44.1); HEMOGLOBIN 7.4 g/dL (12.0-16.0); LYMPHOCYTES # (AUTO) 1.6 (1.0-3.2); LYMPHOCYTES % 6.9 % (18.0-39.1); MEAN CORPUSCULAR HEMOGLOBIN 27.8 pg (28-32); MEAN CORPUSCULAR HGB CONC 27.9 g/dL (31-35); MEAN CORPUSCULAR VOLUME 99.6 fL (81-99); MONOCYTES % 4.5 % (4.4-11.3); NEUTROPHILS # (AUTO) 19.3 (2.1-6.9); NEUTROPHILS % 83.3 % (38.7-80.0); PLATELET COUNT 262 x10e3/uL (140-360); RED BLOOD COUNT 2.66 x10e6/uL (3.6-5.1); RED CELL DISTRIBUTION WIDTH 21.4 % (11.7-14.4)
[2020-08-16 06:37] LABS: ALANINE AMINOTRANSFERASE 103 IU/L (0-55); ALBUMIN 1.9 g/dL (3.5-5.0); ALBUMIN/GLOBULIN RATIO 0.5 (0.8-2.0); ALKALINE PHOSPHATASE 254 IU/L (40-150); ANION GAP 10.6 mmol/L (8-16); BLOOD UREA NITROGEN 33 mg/dL (7-26); BUN/CREATININE RATIO 46 (6-25); CARBON DIOXIDE 37 mmol/L (22-29); CHLORIDE 108 mmol/L (98-107); CREATININE, SERUM 0.71 mg/dL (0.57-1.11); EST GLOMERULAR FILTRATION RATE > 60 ML/MIN (60-); GLUCOSE 230 mg/dL (74-118); POTASSIUM 3.6 mmol/L (3.5-5.1); SODIUM 152 mmol/L (136-145)
[2020-08-16] MEDS: KCL 20 MEQ PACKET/ ORAL SOLN NG SCH ×2 (08:44→17:00)
[2020-08-16] MEDS: VANCOMYCIN 1GM/NS 250 ML 250 ML IV SCH ×2 (08:44→20:00)
[2020-08-16] MEDS: ENOXAPARIN SODIUM INJ 100 MG/ML SYR SC SCH ×2 (08:44→21:00)
[2020-08-16 09:53] LABS: ABG HCO3 42 mmol/L (22-26); ABG PCO2 87 mmHg (35-45); ABG PH 7.29 (7.35-7.45); ABG PO2 83 mmHg (80-105); ABG TCO2 44
[2020-08-16] MEDS: PROPOFOL IV EMULSION 10MG/ML 100 ML IV SCH (19:15)
[2020-08-17] VITALS (23 sets, daily range): BP systolic 92–157; BP diastolic 49–74
[2020-08-17] MEDS: MEROPENEM 1GRAM 1 GM in SODIUM CHLORIDE 0.9% 100 ML 100 ML IV SCH ×3 (05:31→22:05)
[2020-08-17 06:01] LABS: BASOPHILS # (AUTO) 0.1 (0.0-0.1); BASOPHILS % 0.3 % (0.0-1.0); EOSINOPHILS # (AUTO) 0.1 (0.0-0.4); EOSINOPHILS % 0.7 % (0.0-6.0); HEMATOCRIT 27.8 % (34.2-44.1); LYMPHOCYTES # (AUTO) 1.5 (1.0-3.2); LYMPHOCYTES % 7.7 % (18.0-39.1); MEAN CORPUSCULAR HEMOGLOBIN 28.6 pg (28-32); MEAN CORPUSCULAR HGB CONC 28.8 g/dL (31-35); MEAN CORPUSCULAR VOLUME 99.3 fL (81-99); MONOCYTES % 5.4 % (4.4-11.3); NEUTROPHILS # (AUTO) 15.4 (2.1-6.9); NEUTROPHILS % 80.8 % (38.7-80.0); PLATELET COUNT 278 x10e3/uL (140-360); RED CELL DISTRIBUTION WIDTH 21.3 % (11.7-14.4)
[2020-08-17 06:30] LABS: ALANINE AMINOTRANSFERASE 94 IU/L (0-55); ALBUMIN 1.7 g/dL (3.5-5.0); ALBUMIN/GLOBULIN RATIO 0.4 (0.8-2.0); ALKALINE PHOSPHATASE 275 IU/L (40-150); ANION GAP 12.3 mmol/L (8-16); BLOOD UREA NITROGEN 31 mg/dL (7-26); BUN/CREATININE RATIO 49 (6-25); CALCIUM 9.2 mg/dL (8.4-10.2); CARBON DIOXIDE 36 mmol/L (22-29); CHLORIDE 109 mmol/L (98-107); CREATININE, SERUM 0.63 mg/dL (0.57-1.11); EST GLOMERULAR FILTRATION RATE > 60 ML/MIN (60-); GLUCOSE 198 mg/dL (74-118); POTASSIUM 3.3 mmol/L (3.5-5.1); SODIUM 154 mmol/L (136-145)
[2020-08-17 08:29] LABS: ANISOCYTOSIS MODERATE; HYPOCHROMASIA SLIGHT; LYMPHOCYTES % (MANUAL) 8 % (19-48); MONOCYTES % (MANUAL) 2 % (3.4-9.0); MYELOCYTES % (MANUAL) 3 % (0-0); NEUTROPHILS % (MANUAL) 87 % (40-74); PLATELET ESTIMATE ADEQUATE
[2020-08-17 08:30] LABS: PLATELET MORPHOLOGY COMMENT FEW LARGE; POLYCHROMASIA FEW; RBC MORPHOLOGY COMMENT ABNORMAL; TARGET CELLS FEW
[2020-08-17] MEDS: ENOXAPARIN SODIUM INJ 100 MG/ML SYR SC SCH (09:00)
[2020-08-17] MEDS: KCL 20 MEQ PACKET/ ORAL SOLN NG SCH ×2 (09:00→18:09)
[2020-08-17] MEDS: VANCOMYCIN 1GM/NS 250 ML 250 ML IV SCH ×2 (09:00→20:00)
[2020-08-17 09:37] LABS: ABG PH 7.43 (7.35-7.45)
[2020-08-17 09:38] LABS: ABG HCO3 37 mmol/L (22-26); ABG PCO2 56 mmHg (35-45); ABG PO2 82 mmHg (80-105); ABG TCO2 39
[2020-08-17] MEDS ORDERED: ROCURONIUM BROMIDE 10 MG/ML 5ML VIAL IV ONE (12:58)
[2020-08-17] MEDS ORDERED: VASOPRESSIN INJ 20 UNIT/ML VIAL ONE (12:58)
[2020-08-17] MEDS ORDERED: SODIUM CHLORIDE 0.45% 500 ML IV ONE (13:15)
[2020-08-17] MEDS: NOREPINEPHRINE 8 MG/D5W 250 ML 250 ML IV SCH (17:38)
[2020-08-17 17:52] LABS: HEMATOCRIT 25.9 % (34.2-44.1); HEMOGLOBIN 7.3 g/dL (12.0-16.0)
[2020-08-17] MEDS: PROPOFOL IV EMULSION 10MG/ML 100 ML IV SCH (19:45)
[2020-08-17] MEDS: ACETAMINOPHEN 325 MG TAB PO PRN (23:20)
[2020-08-18] VITALS (18 sets, daily range): BP systolic 92–107; BP diastolic 46–83
[2020-08-18] MEDS: METOCLOPRAMIDE HCL 10 MG/2ML VIAL IV SCH ×3 (05:54→22:26)
[2020-08-18] MEDS: MEROPENEM 1GRAM 1 GM in SODIUM CHLORIDE 0.9% 100 ML 100 ML IV SCH ×3 (05:54→22:26)
[2020-08-18 06:17] LABS: BASOPHILS # (AUTO) 0.1 (0.0-0.1); BASOPHILS % 0.3 % (0.0-1.0); EOSINOPHILS % 0.1 % (0.0-6.0); HEMATOCRIT 24.6 % (34.2-44.1); HEMOGLOBIN 7.1 g/dL (12.0-16.0); LYMPHOCYTES # (AUTO) 1.8 (1.0-3.2); LYMPHOCYTES % 8.1 % (18.0-39.1); MEAN CORPUSCULAR HEMOGLOBIN 28.2 pg (28-32); MEAN CORPUSCULAR HGB CONC 28.9 g/dL (31-35); MEAN CORPUSCULAR VOLUME 97.6 fL (81-99); MONOCYTES # (AUTO) 1.4 (0.2-0.8); MONOCYTES % 6.1 % (4.4-11.3); NEUTROPHILS % 80.9 % (38.7-80.0); PLATELET COUNT 272 x10e3/uL (140-360); RED BLOOD COUNT 2.52 x10e6/uL (3.6-5.1); RED CELL DISTRIBUTION WIDTH 21.5 % (11.7-14.4)
[2020-08-18 07:22] LABS: ALANINE AMINOTRANSFERASE 72 IU/L (0-55); ALBUMIN 1.5 g/dL (3.5-5.0); ALBUMIN/GLOBULIN RATIO 0.4 (0.8-2.0); ALKALINE PHOSPHATASE 271 IU/L (40-150); ANION GAP 15.8 mmol/L (8-16); BLOOD UREA NITROGEN 43 mg/dL (7-26); BUN/CREATININE RATIO 48 (6-25); CALCIUM 8.3 mg/dL (8.4-10.2); CARBON DIOXIDE 29 mmol/L (22-29); CHLORIDE 114 mmol/L (98-107); CREATININE, SERUM 0.89 mg/dL (0.57-1.11); EST GLOMERULAR FILTRATION RATE > 60 ML/MIN (60-); GLUCOSE 185 mg/dL (74-118); POTASSIUM 4.8 mmol/L (3.5-5.1); SODIUM 154 mmol/L (136-145)
[2020-08-18] MEDS: KCL 20 MEQ PACKET/ ORAL SOLN NG SCH ×2 (07:47→17:00)
[2020-08-18] MEDS: VANCOMYCIN 1GM/NS 250 ML 250 ML IV SCH ×2 (08:00→20:00)
[2020-08-18 08:07] LABS: ABG HCO3 36 mmol/L (22-26); ABG PCO2 63 mmHg (35-45); ABG PH 7.36 (7.35-7.45); ABG PO2 111 mmHg (80-105); ABG TCO2 38
[2020-08-18] MEDS ORDERED: SODIUM CHLORIDE 0.9% 250ML 250 ML IV ONE (09:00)
[2020-08-18] MEDS ORDERED: SODIUM CHLORIDE 0.45% 1,000 ML IV ONE (12:45)
[2020-08-18] MEDS ORDERED: SODIUM CHLORIDE 0.9% 50ML 50 ML ONE (14:02)
[2020-08-18] MEDS ORDERED: IOPAMIDOL 370 MG/ML 200 ML INFUS..BTL INJ ONE (14:02)
[2020-08-18] MEDS: NOREPINEPHRINE 8 MG/D5W 250 ML 250 ML IV SCH (17:03)
[2020-08-18] MEDS: FUROSEMIDE INJ 10 MG/ML 2 ML VIAL IV SCH (17:15)
[2020-08-18] MEDS: PROPOFOL IV EMULSION 10MG/ML 100 ML IV SCH (19:45)
[2020-08-19] VITALS (17 sets, daily range): BP systolic 90–117; BP diastolic 43–70
[2020-08-19] MEDS: MEROPENEM 1GRAM 1 GM in SODIUM CHLORIDE 0.9% 100 ML 100 ML IV SCH ×2 (05:36→15:12)
[2020-08-19] MEDS: METOCLOPRAMIDE HCL 10 MG/2ML VIAL IV SCH ×3 (05:36→22:14)
[2020-08-19 06:02] LABS: BASOPHILS # (AUTO) 0.1 (0.0-0.1); BASOPHILS % 0.4 % (0.0-1.0); EOSINOPHILS # (AUTO) 0.1 (0.0-0.4); EOSINOPHILS % 0.3 % (0.0-6.0); HEMATOCRIT 27.5 % (34.2-44.1); LYMPHOCYTES # (AUTO) 1.7 (1.0-3.2); LYMPHOCYTES % 8.1 % (18.0-39.1); MEAN CORPUSCULAR HEMOGLOBIN 27.2 pg (28-32); MEAN CORPUSCULAR HGB CONC 29.1 g/dL (31-35); MEAN CORPUSCULAR VOLUME 93.5 fL (81-99); MONOCYTES # (AUTO) 1.3 (0.2-0.8); NEUTROPHILS % 79.8 % (38.7-80.0); PLATELET COUNT 291 x10e3/uL (140-360); RED BLOOD COUNT 2.94 x10e6/uL (3.6-5.1)
[2020-08-19 06:36] LABS: ALBUMIN 1.5 g/dL (3.5-5.0); ALBUMIN/GLOBULIN RATIO 0.3 (0.8-2.0); ANION GAP 20.5 mmol/L (8-16); CALCIUM 8.5 mg/dL (8.4-10.2); CREATININE, SERUM 1.3 mg/dL (0.57-1.11); POTASSIUM 4.5 mmol/L (3.5-5.1)
[2020-08-19] MEDS: VANCOMYCIN 1GM/NS 250 ML 250 ML IV SCH (08:00)
[2020-08-19] MEDS: FUROSEMIDE INJ 10 MG/ML 2 ML VIAL IV SCH ×2 (08:22→16:51)
[2020-08-19] MEDS: KCL 20 MEQ PACKET/ ORAL SOLN NG SCH (08:23)
[2020-08-19 09:13] LABS: ABG HCO3 38 mmol/L (22-26); ABG PCO2 61 mmHg (35-45); ABG PH 7.41 (7.35-7.45); ABG PO2 72 mmHg (80-105); ABG TCO2 40
[2020-08-19] MEDS ORDERED: DEXTROSE 5% 1,000 ML IV ONE (12:15)
[2020-08-19] MEDS: ALBUMIN 25% 25GM 100ML 0.25 GM/ML BTL IV SCH ×2 (15:12→22:30)
[2020-08-19] MEDS ORDERED: CHLOROTHIAZIDE SODIUM 500 MG VIAL IV NR (16:30)
[2020-08-19] MEDS: PROPOFOL IV EMULSION 10MG/ML 100 ML IV SCH (16:50)
[2020-08-19] MEDS: NOREPINEPHRINE 8 MG/D5W 250 ML 250 ML IV SCH (16:50)
[2020-08-19] MEDS ORDERED: CHLOROTHIAZIDE SODIUM 500 MG VIAL INJ ONE (17:45)
[2020-08-19] MEDS: ENOXAPARIN INJ 80 MG/0.8 ML SYR SC SCH (22:05)
[2020-08-19] MEDS: METRONIDAZOLE 500MG/NS 100ML 100 ML IV SCH (22:05)
[2020-08-20] VITALS (21 sets, daily range): BP systolic 91–126; BP diastolic 45–60
[2020-08-20 05:49] LABS: BASOPHILS % 0.2 % (0.0-1.0); EOSINOPHILS # (AUTO) 0.4 (0.0-0.4); HEMATOCRIT 23.3 % (34.2-44.1); LYMPHOCYTES # (AUTO) 1.3 (1.0-3.2); LYMPHOCYTES % 9.5 % (18.0-39.1); MEAN CORPUSCULAR HGB CONC 29.6 g/dL (31-35); MEAN CORPUSCULAR VOLUME 94.7 fL (81-99); MONOCYTES # (AUTO) 0.8 (0.2-0.8); MONOCYTES % 5.6 % (4.4-11.3); NEUTROPHILS # (AUTO) 10.4 (2.1-6.9); NEUTROPHILS % 75.7 % (38.7-80.0); PLATELET COUNT 241 x10e3/uL (140-360); RED BLOOD COUNT 2.46 x10e6/uL (3.6-5.1); RED CELL DISTRIBUTION WIDTH 20.8 % (11.7-14.4)
[2020-08-20 06:05] LABS: ALBUMIN/GLOBULIN RATIO 0.6 (0.8-2.0); ANION GAP 18.2 mmol/L (8-16); CALCIUM 8.1 mg/dL (8.4-10.2); CREATININE, SERUM 1.59 mg/dL (0.57-1.11); POTASSIUM 3.2 mmol/L (3.5-5.1)
[2020-08-20] MEDS: ALBUMIN 25% 25GM 100ML 0.25 GM/ML BTL IV SCH (06:05)
[2020-08-20] MEDS: METOCLOPRAMIDE HCL 10 MG/2ML VIAL IV SCH ×3 (06:05→23:00)
[2020-08-20] MEDS: METRONIDAZOLE 500MG/NS 100ML 100 ML IV SCH ×3 (06:05→23:00)
[2020-08-20 06:07] LABS: HEMOGLOBIN 6.9 g/dL (12.0-16.0)
[2020-08-20] MEDS ORDERED: SODIUM CHLORIDE 0.9% 250ML 250 ML IV ONE (06:30)
[2020-08-20] MEDS ORDERED: LACTATED RINGER'S 500 ML IV SCH (06:30)
[2020-08-20 08:50] LABS: EOSINOPHILS % (MANUAL) 3 % (0-7); LYMPHOCYTES % (MANUAL) 9 % (19-48); MONOCYTES % (MANUAL) 7 % (3.4-9.0); NEUTROPHILS % (MANUAL) 81 % (40-74)
[2020-08-20 08:51] LABS: HYPOCHROMASIA MODERATE; RBC MORPHOLOGY COMMENT ABNORMAL
[2020-08-20] MEDS: CHLOROTHIAZIDE SODIUM 500 MG VIAL IV SCH (09:00)
[2020-08-20] MEDS: ENOXAPARIN INJ 80 MG/0.8 ML SYR SC SCH (09:01)
[2020-08-20] MEDS: FUROSEMIDE INJ 10 MG/ML 2 ML VIAL IV SCH (09:01)
[2020-08-20 09:23] LABS: ABG HCO3 49 mmol/L (22-26); ABG PCO2 64 mmHg (35-45); ABG PO2 62 mmHg (80-105); ABG TCO2 50
[2020-08-20] MEDS ORDERED: DEXTROSE 5% 1,000 ML IV ONE (10:15)
[2020-08-20] MEDS ORDERED: POTASSIUM CHLORIDE 10MEQ/100ML 400 ML IV ONE (10:30)
[2020-08-20] MEDS: DEXTROSE 5%/0.225% SOD CHL 1,000 ML IV SCH ×2 (12:22→23:00)
[2020-08-20] MEDS ORDERED: ENOXAPARIN SOD INJ 60 MG/0.6 ML SYR SC SCH (17:00)
[2020-08-20] MEDS ORDERED: ENOXAPARIN INJ 80 MG/0.8 ML SYR SC SCH (17:00)
[2020-08-20] MEDS: PROPOFOL IV EMULSION 10MG/ML 100 ML IV SCH (19:45)
[2020-08-20] MEDS ORDERED: CENTRAL TPN FORMULA 1 BAG IV SCH (20:00)
[2020-08-21] VITALS (28 sets, daily range): BP systolic 94–118; BP diastolic 45–62
[2020-08-21 05:20] LABS: BASOPHILS # (AUTO) 0.1 (0.0-0.1); BASOPHILS % 0.4 % (0.0-1.0); EOSINOPHILS # (AUTO) 0.4 (0.0-0.4); EOSINOPHILS % 3.4 % (0.0-6.0); HEMATOCRIT 27.2 % (34.2-44.1); HEMOGLOBIN 8.3 g/dL (12.0-16.0); LYMPHOCYTES # (AUTO) 1.3 (1.0-3.2); MEAN CORPUSCULAR HEMOGLOBIN 27.7 pg (28-32); MEAN CORPUSCULAR HGB CONC 30.5 g/dL (31-35); MEAN CORPUSCULAR VOLUME 90.7 fL (81-99); MONOCYTES # (AUTO) 0.9 (0.2-0.8); MONOCYTES % 6.8 % (4.4-11.3); PLATELET COUNT 233 x10e3/uL (140-360); RED CELL DISTRIBUTION WIDTH 19.9 % (11.7-14.4)
[2020-08-21 06:04] LABS: ALBUMIN 2.1 g/dL (3.5-5.0); ALBUMIN/GLOBULIN RATIO 0.6 (0.8-2.0); ANION GAP 16.8 mmol/L (8-16); CREATININE, SERUM 1.67 mg/dL (0.57-1.11)
[2020-08-21 06:05] LABS: POTASSIUM 2.8 mmol/L (3.5-5.1)
[2020-08-21] MEDS: METOCLOPRAMIDE HCL 10 MG/2ML VIAL IV SCH ×3 (07:00→21:51)
[2020-08-21] MEDS: METRONIDAZOLE 500MG/NS 100ML 100 ML IV SCH ×3 (07:00→21:51)
[2020-08-21] MEDS ORDERED: POTASSIUM CHLORIDE 10MEQ/100ML 400 ML IV ONE (07:30)
[2020-08-21 08:51] LABS: ABG HCO3 50 mmol/L (22-26); ABG PCO2 59 mmHg (35-45); ABG PH 7.54 (7.35-7.45); ABG PO2 84 mmHg (80-105); ABG TCO2 50
[2020-08-21] MEDS: CHLOROTHIAZIDE SODIUM 500 MG VIAL IV SCH (09:00)
[2020-08-21] MEDS ORDERED: DEXTROSE 5% 1,000 ML IV ONE (11:00)
[2020-08-21] MEDS ORDERED: HEPARIN 25,000 UNIT 1,500 UNIT in DEXTROSE 5% 250ML 250 ML IV SCH (12:00)
[2020-08-21 12:27] LABS: ABG HCO3 53 mmol/L (22-26); ABG PCO2 63 mmHg (35-45); ABG PH 7.54 (7.35-7.45); ABG PO2 71 mmHg (80-105); ABG TCO2 50
[2020-08-21] MEDS: CENTRAL TPN FORMULA 1 BAG IV SCH ×2 (12:56→21:45)
[2020-08-21] MEDS: PROPOFOL IV EMULSION 10MG/ML 100 ML IV SCH (19:45)
[2020-08-22] VITALS (25 sets, daily range): BP systolic 95–130; BP diastolic 46–66
[2020-08-22 04:46] LABS: BASOPHILS % 0.3 % (0.0-1.0); EOSINOPHILS # (AUTO) 0.6 (0.0-0.4); EOSINOPHILS % 4.8 % (0.0-6.0); HEMATOCRIT 26.6 % (34.2-44.1); LYMPHOCYTES # (AUTO) 1.3 (1.0-3.2); LYMPHOCYTES % 9.9 % (18.0-39.1); MEAN CORPUSCULAR HEMOGLOBIN 27.6 pg (28-32); MEAN CORPUSCULAR HGB CONC 30.1 g/dL (31-35); MEAN CORPUSCULAR VOLUME 91.7 fL (81-99); MONOCYTES # (AUTO) 0.9 (0.2-0.8); MONOCYTES % 6.6 % (4.4-11.3); NEUTROPHILS # (AUTO) 9.4 (2.1-6.9); NEUTROPHILS % 71.5 % (38.7-80.0); PLATELET COUNT 228 x10e3/uL (140-360); RED CELL DISTRIBUTION WIDTH 19.4 % (11.7-14.4)
[2020-08-22 05:02] LABS: MAGNESIUM 1.9 MG/DL (1.3-2.1)
[2020-08-22 05:12] LABS: ALBUMIN 1.9 g/dL (3.5-5.0); ALBUMIN/GLOBULIN RATIO 0.5 (0.8-2.0); ANION GAP 15.9 mmol/L (8-16); CALCIUM 7.9 mg/dL (8.4-10.2); CREATININE, SERUM 1.68 mg/dL (0.57-1.11)
[2020-08-22 05:17] LABS: POTASSIUM 2.9 mmol/L (3.5-5.1)
[2020-08-22] MEDS: METOCLOPRAMIDE HCL 10 MG/2ML VIAL IV SCH ×3 (05:57→21:19)
[2020-08-22] MEDS: METRONIDAZOLE 500MG/NS 100ML 100 ML IV SCH ×3 (05:57→21:19)
[2020-08-22] MEDS ORDERED: POTASSIUM CHLORIDE 20MEQ/100ML 100 ML IV ONE ×2 (06:35→17:00)
[2020-08-22 07:39] LABS: EOSINOPHILS % (MANUAL) 3 % (0-7); LYMPHOCYTES % (MANUAL) 8 % (19-48); MONOCYTES % (MANUAL) 10 % (3.4-9.0); MYELOCYTES % (MANUAL) 2 % (0-0); NEUTROPHILS % (MANUAL) 77 % (40-74)
[2020-08-22 07:40] LABS: ANISOCYTOSIS SLIGHT
[2020-08-22 07:43] LABS: STOMATOCYTES SLIGHT; TARGET CELLS FEW
[2020-08-22 07:44] LABS: PLATELET ESTIMATE ADEQUATE; RBC MORPHOLOGY COMMENT NORMAL
[2020-08-22] MEDS ORDERED: ASPIRIN 81 MG CHEW TAB PEG SCH (09:00)
[2020-08-22] MEDS: CHLOROTHIAZIDE SODIUM 500 MG VIAL IV SCH (09:00)
[2020-08-22 09:19] LABS: ABG PH 7.51 (7.35-7.45)
[2020-08-22 09:20] LABS: ABG HCO3 54 mmol/L (22-26); ABG PCO2 69 mmHg (35-45); ABG PO2 91 mmHg (80-105); ABG TCO2 > 50
[2020-08-22] MEDS: DEXTROSE 5% 1,000 ML IV SCH ×2 (13:38→21:45)
[2020-08-22 15:39] LABS: ABG HCO3 55 mmol/L (22-26); ABG PCO2 55 mmHg (35-45); ABG PO2 45 mmHg (80-105)
[2020-08-22 15:40] LABS: ABG TCO2 > 50
[2020-08-22] MEDS: CENTRAL TPN FORMULA 1 BAG IV SCH (21:02)
[2020-08-23] VITALS (30 sets, daily range): BP systolic 90–127; BP diastolic 43–79
[2020-08-23] MEDS ORDERED: VASOPRESSIN 60 UNIT in DEXTROSE 5% 50ML 57 ML IV PRN (01:00)
[2020-08-23] MEDS ORDERED: VASOPRESSIN INJ 20 UNIT/ML VIAL ONE (01:20)
[2020-08-23] MEDS ORDERED: DEXTROSE 5% 50ML 100 ML IV ONE (01:25)
[2020-08-23 05:06] LABS: BASOPHILS % 0.3 % (0.0-1.0); EOSINOPHILS # (AUTO) 0.6 (0.0-0.4); EOSINOPHILS % 4.2 % (0.0-6.0); HEMATOCRIT 26.7 % (34.2-44.1); HEMOGLOBIN 7.9 g/dL (12.0-16.0); LYMPHOCYTES % 13.4 % (18.0-39.1); MEAN CORPUSCULAR HEMOGLOBIN 27.8 pg (28-32); MEAN CORPUSCULAR HGB CONC 29.6 g/dL (31-35); MONOCYTES # (AUTO) 0.8 (0.2-0.8); MONOCYTES % 5.7 % (4.4-11.3); NEUTROPHILS # (AUTO) 10.1 (2.1-6.9); PLATELET COUNT 266 x10e3/uL (140-360); RED BLOOD COUNT 2.84 x10e6/uL (3.6-5.1); RED CELL DISTRIBUTION WIDTH 18.9 % (11.7-14.4)
[2020-08-23] MEDS: METOCLOPRAMIDE HCL 10 MG/2ML VIAL IV SCH ×3 (05:25→22:19)
[2020-08-23] MEDS: METRONIDAZOLE 500MG/NS 100ML 100 ML IV SCH ×3 (05:25→22:19)
[2020-08-23 05:38] LABS: ALBUMIN 1.7 g/dL (3.5-5.0); ALBUMIN/GLOBULIN RATIO 0.5 (0.8-2.0); ANION GAP 15.8 mmol/L (8-16); CALCIUM 7.9 mg/dL (8.4-10.2); CREATININE, SERUM 1.82 mg/dL (0.57-1.11)
[2020-08-23 05:45] LABS: POTASSIUM 2.8 mmol/L (3.5-5.1)
[2020-08-23] MEDS ORDERED: POTASSIUM CHLORIDE 20MEQ/100ML 200 ML IV ONE (06:45)
[2020-08-23] MEDS ORDERED: DEXTROSE 50% SYRINGE 50 ML IV PRN (06:45)
[2020-08-23] MEDS: INSULIN REGULAR, HUMAN 100 UNIT/1 ML 3ML VIAL SQ SCH ×3 (07:16→18:03)
[2020-08-23] MEDS ORDERED: INSULIN REGULAR, HUMAN 100 UNIT/1 ML 3ML VIAL SQ SCH (07:30)
[2020-08-23] MEDS ORDERED: ALBUMIN 25% 25GM 100ML 0.25 GM/ML BTL IV SCH (08:00)
[2020-08-23] MEDS: CHLOROTHIAZIDE SODIUM 500 MG VIAL IV SCH (09:00)
[2020-08-23 09:16] LABS: BAND NEUTROPHILS % (MANUAL) 1 %; EOSINOPHILS % (MANUAL) 8 % (0-7); LYMPHOCYTES % (MANUAL) 12 % (19-48); MONOCYTES % (MANUAL) 4 % (3.4-9.0); MYELOCYTES % (MANUAL) 2 % (0-0); NEUTROPHILS % (MANUAL) 73 % (40-74)
[2020-08-23 09:17] LABS: ANISOCYTOSIS MODERATE; HYPOCHROMASIA SLIGHT; STOMATOCYTES SLIGHT
[2020-08-23 09:18] LABS: PLATELET ESTIMATE ADEQUATE; PLATELET MORPHOLOGY COMMENT RARE EDTA CLUMPING; RBC MORPHOLOGY COMMENT ABNORMAL
[2020-08-23] MEDS: DEXTROSE 5% 1,000 ML IV SCH (09:31)
[2020-08-23] MEDS: ALBUMIN 25% 25GM 100ML 100 ML IV SCH ×2 (09:31→16:01)
[2020-08-23] MEDS: PANTOPRAZOLE 40 MG 10ML VIAL IV SCH ×2 (09:38→16:46)
[2020-08-23 11:11] LABS: ABG HCO3 40 mmol/L (22-26); ABG OXYGEN SATURATION 98.2 % (95-98); ABG PCO2 49 mmHg (35-45); ABG PH 7.53 (7.35-7.45); ABG PO2 105 mmHg (80-105); ABG TCO2 41.4
[2020-08-23] MEDS ORDERED: ENOXAPARIN SOD INJ 60 MG/0.6 ML SYR SC SCH (17:00)
[2020-08-23] MEDS: CENTRAL TPN FORMULA 1 BAG IV SCH (20:00)
[2020-08-24] VITALS (26 sets, daily range): BP systolic 95–131; BP diastolic 46–93
[2020-08-24] MEDS: DEXTROSE 5% 1,000 ML IV SCH (00:59)
[2020-08-24] MEDS: ALBUMIN 25% 25GM 100ML 100 ML IV SCH (00:59)
[2020-08-24] MEDS: INSULIN REGULAR, HUMAN 100 UNIT/1 ML 3ML VIAL SQ SCH ×5 (01:00→23:46)
[2020-08-24] MEDS: METRONIDAZOLE 500MG/NS 100ML 100 ML IV SCH ×3 (06:00→22:38)
[2020-08-24] MEDS: METOCLOPRAMIDE HCL 10 MG/2ML VIAL IV SCH ×3 (06:00→22:38)
[2020-08-24 06:38] LABS: BASOPHILS # (AUTO) 0.1 (0.0-0.1); BASOPHILS % 0.4 % (0.0-1.0); EOSINOPHILS # (AUTO) 0.6 (0.0-0.4); EOSINOPHILS % 4.2 % (0.0-6.0); LYMPHOCYTES # (AUTO) 1.9 (1.0-3.2); MEAN CORPUSCULAR HEMOGLOBIN 27.4 pg (28-32); MEAN CORPUSCULAR HGB CONC 29.6 g/dL (31-35); MEAN CORPUSCULAR VOLUME 92.7 fL (81-99); MONOCYTES # (AUTO) 0.7 (0.2-0.8); MONOCYTES % 5.1 % (4.4-11.3); NEUTROPHILS # (AUTO) 10.3 (2.1-6.9); NEUTROPHILS % 71.1 % (38.7-80.0); PLATELET COUNT 262 x10e3/uL (140-360); RED BLOOD COUNT 2.48 x10e6/uL (3.6-5.1); RED CELL DISTRIBUTION WIDTH 18.2 % (11.7-14.4)
[2020-08-24 06:47] LABS: HEMOGLOBIN 6.8 g/dL (12.0-16.0)
[2020-08-24 07:00] LABS: INR 1.14; PROTHROMBIN TIME 15.4 seconds (11.9-14.5)
[2020-08-24 07:01] LABS: ALBUMIN 2.7 g/dL (3.5-5.0); ALBUMIN/GLOBULIN RATIO 0.8 (0.8-2.0); ANION GAP 14.6 mmol/L (8-16); CALCIUM 8.1 mg/dL (8.4-10.2); CREATININE, SERUM 1.87 mg/dL (0.57-1.11); PARTIAL THROMBOPLASTIN TIME 38.3 seconds (23.8-35.5)
[2020-08-24 07:07] LABS: POTASSIUM 2.6 mmol/L (3.5-5.1)
[2020-08-24] MEDS ORDERED: SODIUM CHLORIDE 0.9% 250ML 250 ML IV ONE (07:45)
[2020-08-24] MEDS ORDERED: POTASSIUM CHLORIDE 10MEQ/100ML 200 ML IV ONE (08:00)
[2020-08-24] MEDS: CHLOROTHIAZIDE SODIUM 500 MG VIAL IV SCH (09:00)
[2020-08-24] MEDS: KCL 20 MEQ PACKET/ ORAL SOLN NG SCH ×2 (09:18→17:11)
[2020-08-24] MEDS: PANTOPRAZOLE 40 MG 10ML VIAL IV SCH ×2 (09:18→17:11)
[2020-08-24 10:11] LABS: BAND NEUTROPHILS % (MANUAL) 1 %; EOSINOPHILS % (MANUAL) 6 % (0-7); HYPOCHROMASIA SLIGHT; LYMPHOCYTES % (MANUAL) 17 % (19-48); METAMYELOCYTES % (MANUAL) 1 % (0-0); MONOCYTES % (MANUAL) 3 % (3.4-9.0); MYELOCYTES % (MANUAL) 6 % (0-0); NEUTROPHILS % (MANUAL) 66 % (40-74)
[2020-08-24 10:12] LABS: PLATELET ESTIMATE ADEQUATE; PLATELET MORPHOLOGY COMMENT FEW LARGE; RBC MORPHOLOGY COMMENT NORMAL
[2020-08-24 16:20] LABS: ABG PH 7.49 (7.35-7.45)
[2020-08-24 16:21] LABS: ABG HCO3 44 mmol/L (22-26); ABG PCO2 57 mmHg (35-45); ABG PO2 115 mmHg (80-105); ABG TCO2 45
[2020-08-25] VITALS (25 sets, daily range): BP systolic 93–124; BP diastolic 53–95
[2020-08-25] MEDS: METOCLOPRAMIDE HCL 10 MG/2ML VIAL IV SCH ×3 (05:50→23:18)
[2020-08-25] MEDS: METRONIDAZOLE 500MG/NS 100ML 100 ML IV SCH ×3 (05:50→23:18)
[2020-08-25] MEDS: INSULIN REGULAR, HUMAN 100 UNIT/1 ML 3ML VIAL SQ SCH ×3 (06:07→17:54)
[2020-08-25 06:19] LABS: BASOPHILS # (AUTO) 0.1 (0.0-0.1); BASOPHILS % 0.5 % (0.0-1.0); EOSINOPHILS # (AUTO) 0.3 (0.0-0.4); EOSINOPHILS % 1.8 % (0.0-6.0); HEMATOCRIT 30.1 % (34.2-44.1); HEMOGLOBIN 9.4 g/dL (12.0-16.0); LYMPHOCYTES # (AUTO) 1.3 (1.0-3.2); LYMPHOCYTES % 8.5 % (18.0-39.1); MEAN CORPUSCULAR HEMOGLOBIN 28.8 pg (28-32); MEAN CORPUSCULAR HGB CONC 31.2 g/dL (31-35); MEAN CORPUSCULAR VOLUME 92.3 fL (81-99); MONOCYTES # (AUTO) 0.8 (0.2-0.8); MONOCYTES % 5.2 % (4.4-11.3); NEUTROPHILS # (AUTO) 12.4 (2.1-6.9); PLATELET COUNT 283 x10e3/uL (140-360); RED BLOOD COUNT 3.26 x10e6/uL (3.6-5.1); RED CELL DISTRIBUTION WIDTH 17.6 % (11.7-14.4)
[2020-08-25 06:50] LABS: ALBUMIN 2.4 g/dL (3.5-5.0); ALBUMIN/GLOBULIN RATIO 0.6 (0.8-2.0); ALKALINE PHOSPHATASE 184 IU/L (40-150); ANION GAP 16.3 mmol/L (8-16); BLOOD UREA NITROGEN 75 mg/dL (7-26); BUN/CREATININE RATIO 40 (6-25); CALCIUM 8.3 mg/dL (8.4-10.2); CARBON DIOXIDE 39 mmol/L (22-29); CHLORIDE 93 mmol/L (98-107); CREATININE, SERUM 1.88 mg/dL (0.57-1.11); EST GLOMERULAR FILTRATION RATE 27 ML/MIN (60-); GLUCOSE 142 mg/dL (74-118); SODIUM 145 mmol/L (136-145)
[2020-08-25 06:51] LABS: ALANINE AMINOTRANSFERASE < 6 IU/L (0-55)
[2020-08-25 06:53] LABS: POTASSIUM 3.3 mmol/L (3.5-5.1)
[2020-08-25 07:59] LABS: ABG HCO3 41 mmol/L (22-26); ABG PCO2 60 mmHg (35-45); ABG PH 7.44 (7.35-7.45); ABG PO2 69 mmHg (80-105); ABG TCO2 43
[2020-08-25] MEDS: CHLOROTHIAZIDE SODIUM 500 MG VIAL IV SCH (09:00)
[2020-08-25] MEDS: PANTOPRAZOLE 40 MG 10ML VIAL IV SCH ×2 (09:17→17:12)
[2020-08-25] MEDS: KCL 20 MEQ PACKET/ ORAL SOLN NG SCH ×2 (09:17→17:12)
[2020-08-25] MEDS ORDERED: POTASSIUM CHLORIDE 20MEQ/100ML 100 ML IV ONE (16:30)
[2020-08-25] MEDS: ENOXAPARIN SOD INJ 40 MG/0.4 ML SYR SC SCH (21:00)
[2020-08-26] VITALS (20 sets, daily range): BP systolic 83–133; BP diastolic 49–71
[2020-08-26] MEDS: INSULIN REGULAR, HUMAN 100 UNIT/1 ML 3ML VIAL SQ SCH ×4 (01:00→18:39)
[2020-08-26] MEDS: ACETAMINOPHEN 325 MG TAB PO PRN (04:26)
[2020-08-26 06:01] LABS: BASOPHILS # (AUTO) 0.1 (0.0-0.1); BASOPHILS % 0.4 % (0.0-1.0); EOSINOPHILS # (AUTO) 0.3 (0.0-0.4); EOSINOPHILS % 1.9 % (0.0-6.0); HEMOGLOBIN 8.9 g/dL (12.0-16.0); LYMPHOCYTES # (AUTO) 1.1 (1.0-3.2); LYMPHOCYTES % 6.8 % (18.0-39.1); MEAN CORPUSCULAR HGB CONC 30.7 g/dL (31-35); MEAN CORPUSCULAR VOLUME 94.5 fL (81-99); MONOCYTES # (AUTO) 0.8 (0.2-0.8); MONOCYTES % 5.3 % (4.4-11.3); NEUTROPHILS % 82.3 % (38.7-80.0); PLATELET COUNT 303 x10e3/uL (140-360); RED BLOOD COUNT 3.07 x10e6/uL (3.6-5.1); RED CELL DISTRIBUTION WIDTH 18.1 % (11.7-14.4)
[2020-08-26] MEDS: METRONIDAZOLE 500MG/NS 100ML 100 ML IV SCH ×2 (06:11→18:24)
[2020-08-26] MEDS: METOCLOPRAMIDE HCL 10 MG/2ML VIAL IV SCH ×2 (06:11→18:24)
[2020-08-26 06:36] LABS: ALANINE AMINOTRANSFERASE < 6 IU/L (0-55); ALBUMIN 2.1 g/dL (3.5-5.0); ALBUMIN/GLOBULIN RATIO 0.5 (0.8-2.0); ALKALINE PHOSPHATASE 221 IU/L (40-150); ANION GAP 15.6 mmol/L (8-16); BLOOD UREA NITROGEN 71 mg/dL (7-26); BUN/CREATININE RATIO 40 (6-25); CALCIUM 8.3 mg/dL (8.4-10.2); CARBON DIOXIDE 38 mmol/L (22-29); CHLORIDE 97 mmol/L (98-107); CREATININE, SERUM 1.78 mg/dL (0.57-1.11); EST GLOMERULAR FILTRATION RATE 29 ML/MIN (60-); GLUCOSE 155 mg/dL (74-118); POTASSIUM 4.6 mmol/L (3.5-5.1); SODIUM 146 mmol/L (136-145)
[2020-08-26] MEDS: CHLOROTHIAZIDE SODIUM 500 MG VIAL IV SCH (08:23)
[2020-08-26] MEDS: PANTOPRAZOLE 40 MG 10ML VIAL IV SCH ×2 (08:23→18:24)
[2020-08-26] MEDS: KCL 20 MEQ PACKET/ ORAL SOLN NG SCH (08:24)
[2020-08-26] MEDS: ENOXAPARIN SOD INJ 40 MG/0.4 ML SYR SC SCH (08:24)
[2020-08-26 15:12] LABS: ABG HCO3 39 mmol/L (22-26); ABG PCO2 68 mmHg (35-45); ABG PH 7.36 (7.35-7.45); ABG PO2 108 mmHg (80-105); ABG TCO2 41
[2020-08-27] VITALS (25 sets, daily range): BP systolic 91–117; BP diastolic 49–68
[2020-08-27] MEDS: METOCLOPRAMIDE HCL 10 MG/2ML VIAL IV SCH ×3 (00:55→14:10)
[2020-08-27] MEDS: METRONIDAZOLE 500MG/NS 100ML 100 ML IV SCH ×3 (00:55→14:10)
[2020-08-27] MEDS: ENOXAPARIN SOD INJ 40 MG/0.4 ML SYR SC SCH ×2 (00:55→09:06)
[2020-08-27] MEDS: INSULIN REGULAR, HUMAN 100 UNIT/1 ML 3ML VIAL SQ SCH ×4 (00:56→17:42)
[2020-08-27 06:25] LABS: BASOPHILS # (AUTO) 0.1 (0.0-0.1); BASOPHILS % 0.4 % (0.0-1.0); EOSINOPHILS # (AUTO) 0.4 (0.0-0.4); EOSINOPHILS % 2.6 % (0.0-6.0); HEMATOCRIT 28.2 % (34.2-44.1); HEMOGLOBIN 8.4 g/dL (12.0-16.0); LYMPHOCYTES # (AUTO) 1.2 (1.0-3.2); LYMPHOCYTES % 8.6 % (18.0-39.1); MEAN CORPUSCULAR HEMOGLOBIN 28.6 pg (28-32); MEAN CORPUSCULAR HGB CONC 29.8 g/dL (31-35); MEAN CORPUSCULAR VOLUME 95.9 fL (81-99); MONOCYTES # (AUTO) 0.8 (0.2-0.8); MONOCYTES % 5.8 % (4.4-11.3); NEUTROPHILS # (AUTO) 10.6 (2.1-6.9); NEUTROPHILS % 79.6 % (38.7-80.0); PLATELET COUNT 322 x10e3/uL (140-360); RED BLOOD COUNT 2.94 x10e6/uL (3.6-5.1); RED CELL DISTRIBUTION WIDTH 17.7 % (11.7-14.4)
[2020-08-27 07:08] LABS: ALBUMIN 1.9 g/dL (3.5-5.0); ALBUMIN/GLOBULIN RATIO 0.5 (0.8-2.0); CALCIUM 8.3 mg/dL (8.4-10.2); CREATININE, SERUM 1.75 mg/dL (0.57-1.11)
[2020-08-27] MEDS: PANTOPRAZOLE 40 MG 10ML VIAL IV SCH ×2 (09:06→17:01)
[2020-08-27] MEDS: CHLOROTHIAZIDE SODIUM 500 MG VIAL IV SCH (09:06)
[2020-08-28] VITALS (25 sets, daily range): BP systolic 86–113; BP diastolic 50–75
[2020-08-28] MEDS: METRONIDAZOLE 500MG/NS 100ML 100 ML IV SCH ×4 (00:02→21:27)
[2020-08-28] MEDS: METOCLOPRAMIDE HCL 10 MG/2ML VIAL IV SCH ×4 (00:02→21:27)
[2020-08-28] MEDS: ENOXAPARIN SOD INJ 40 MG/0.4 ML SYR SC SCH ×3 (00:02→21:27)
[2020-08-28] MEDS: INSULIN REGULAR, HUMAN 100 UNIT/1 ML 3ML VIAL SQ SCH ×5 (00:09→23:52)
[2020-08-28 06:21] LABS: BASOPHILS % 0.3 % (0.0-1.0); EOSINOPHILS # (AUTO) 0.5 (0.0-0.4); HEMATOCRIT 27.1 % (34.2-44.1); HEMOGLOBIN 8.2 g/dL (12.0-16.0); LYMPHOCYTES # (AUTO) 1.4 (1.0-3.2); LYMPHOCYTES % 11.5 % (18.0-39.1); MEAN CORPUSCULAR HEMOGLOBIN 28.9 pg (28-32); MEAN CORPUSCULAR HGB CONC 30.3 g/dL (31-35); MEAN CORPUSCULAR VOLUME 95.4 fL (81-99); MONOCYTES # (AUTO) 0.8 (0.2-0.8); MONOCYTES % 6.9 % (4.4-11.3); NEUTROPHILS # (AUTO) 8.7 (2.1-6.9); NEUTROPHILS % 73.6 % (38.7-80.0); PLATELET COUNT 328 x10e3/uL (140-360); RED BLOOD COUNT 2.84 x10e6/uL (3.6-5.1); RED CELL DISTRIBUTION WIDTH 17.3 % (11.7-14.4)
[2020-08-28 07:19] LABS: ALBUMIN 1.8 g/dL (3.5-5.0); ALBUMIN/GLOBULIN RATIO 0.4 (0.8-2.0); ANION GAP 16.8 mmol/L (8-16); CALCIUM 8.5 mg/dL (8.4-10.2); CREATININE, SERUM 1.72 mg/dL (0.57-1.11); POTASSIUM 3.8 mmol/L (3.5-5.1)
[2020-08-28] MEDS: CHLOROTHIAZIDE SODIUM 500 MG VIAL IV SCH (09:08)
[2020-08-28] MEDS: PANTOPRAZOLE 40 MG 10ML VIAL IV SCH ×2 (09:08→17:55)
[2020-08-29] VITALS (25 sets, daily range): BP systolic 89–116; BP diastolic 44–64
[2020-08-29 06:22] LABS: BASOPHILS % 0.3 % (0.0-1.0); EOSINOPHILS # (AUTO) 0.5 (0.0-0.4); EOSINOPHILS % 5.9 % (0.0-6.0); HEMATOCRIT 27.6 % (34.2-44.1); LYMPHOCYTES # (AUTO) 1.2 (1.0-3.2); LYMPHOCYTES % 12.8 % (18.0-39.1); MEAN CORPUSCULAR HEMOGLOBIN 28.1 pg (28-32); MEAN CORPUSCULAR VOLUME 96.8 fL (81-99); MONOCYTES # (AUTO) 0.6 (0.2-0.8); MONOCYTES % 7.1 % (4.4-11.3); NEUTROPHILS # (AUTO) 6.3 (2.1-6.9); NEUTROPHILS % 69.8 % (38.7-80.0); PLATELET COUNT 338 x10e3/uL (140-360); RED BLOOD COUNT 2.85 x10e6/uL (3.6-5.1); RED CELL DISTRIBUTION WIDTH 17.6 % (11.7-14.4)
[2020-08-29] MEDS: METOCLOPRAMIDE HCL 10 MG/2ML VIAL IV SCH ×3 (06:23→21:24)
[2020-08-29] MEDS: INSULIN REGULAR, HUMAN 100 UNIT/1 ML 3ML VIAL SQ SCH ×4 (06:23→23:29)
[2020-08-29] MEDS: METRONIDAZOLE 500MG/NS 100ML 100 ML IV SCH ×2 (06:23→14:04)
[2020-08-29 06:46] LABS: ALBUMIN 1.8 g/dL (3.5-5.0); ALBUMIN/GLOBULIN RATIO 0.4 (0.8-2.0); ANION GAP 16.8 mmol/L (8-16); CALCIUM 8.4 mg/dL (8.4-10.2); CREATININE, SERUM 1.53 mg/dL (0.57-1.11); POTASSIUM 3.8 mmol/L (3.5-5.1)
[2020-08-29] MEDS: PANTOPRAZOLE 40 MG 10ML VIAL IV SCH ×2 (09:05→16:49)
[2020-08-29] MEDS: ENOXAPARIN SOD INJ 40 MG/0.4 ML SYR SC SCH ×2 (09:05→21:24)
[2020-08-29] MEDS: CHLOROTHIAZIDE SODIUM 500 MG VIAL IV SCH (09:05)
[2020-08-30] VITALS (26 sets, daily range): BP systolic 83–119; BP diastolic 34–66
[2020-08-30] MEDS: METOCLOPRAMIDE HCL 10 MG/2ML VIAL IV SCH ×3 (05:25→22:43)
[2020-08-30 06:02] LABS: BASOPHILS # (AUTO) 0.1 (0.0-0.1); BASOPHILS % 0.6 % (0.0-1.0); EOSINOPHILS # (AUTO) 0.5 (0.0-0.4); EOSINOPHILS % 5.5 % (0.0-6.0); HEMATOCRIT 26.8 % (34.2-44.1); LYMPHOCYTES # (AUTO) 1.3 (1.0-3.2); LYMPHOCYTES % 15.1 % (18.0-39.1); MEAN CORPUSCULAR HGB CONC 29.9 g/dL (31-35); MEAN CORPUSCULAR VOLUME 97.1 fL (81-99); MONOCYTES # (AUTO) 0.7 (0.2-0.8); MONOCYTES % 8.4 % (4.4-11.3); NEUTROPHILS # (AUTO) 5.7 (2.1-6.9); NEUTROPHILS % 64.3 % (38.7-80.0); PLATELET COUNT 320 x10e3/uL (140-360); RED BLOOD COUNT 2.76 x10e6/uL (3.6-5.1); RED CELL DISTRIBUTION WIDTH 17.9 % (11.7-14.4)
[2020-08-30 06:29] LABS: ALBUMIN 1.7 g/dL (3.5-5.0); ALBUMIN/GLOBULIN RATIO 0.4 (0.8-2.0); ANION GAP 14.5 mmol/L (8-16); CALCIUM 8.5 mg/dL (8.4-10.2); CREATININE, SERUM 1.5 mg/dL (0.57-1.11); POTASSIUM 3.5 mmol/L (3.5-5.1)
[2020-08-30] MEDS: INSULIN REGULAR, HUMAN 100 UNIT/1 ML 3ML VIAL SQ SCH ×3 (06:41→17:56)
[2020-08-30 07:55] LABS: EOSINOPHILS % (MANUAL) 5 % (0-7); LYMPHOCYTES % (MANUAL) 9 % (19-48); MONOCYTES % (MANUAL) 7 % (3.4-9.0); MYELOCYTES % (MANUAL) 3 % (0-0); NEUTROPHILS % (MANUAL) 76 % (40-74)
[2020-08-30 07:57] LABS: ANISOCYTOSIS SLIGHT; STOMATOCYTES SLIGHT
[2020-08-30 07:58] LABS: PLATELET ESTIMATE ADEQUATE; PLATELET MORPHOLOGY COMMENT FEW LARGE
[2020-08-30 07:59] LABS: HYPOCHROMASIA SLIGHT; RBC MORPHOLOGY COMMENT NORMAL
[2020-08-30] MEDS: PANTOPRAZOLE 40 MG 10ML VIAL IV SCH ×2 (11:32→17:10)
[2020-08-30] MEDS: ENOXAPARIN SOD INJ 40 MG/0.4 ML SYR SC SCH ×2 (11:32→22:42)
[2020-08-30] MEDS: CHLOROTHIAZIDE SODIUM 500 MG VIAL IV SCH (11:32)
[2020-08-30] MEDS ORDERED: FUROSEMIDE INJ 10 MG/ML 4 ML VIAL IV ONE (16:15)
[2020-08-30 16:18] LABS: ABG HCO3 41 mmol/L (22-26); ABG PCO2 86 mmHg (35-45); ABG PH 7.29 (7.35-7.45); ABG PO2 120 mmHg (80-105); ABG TCO2 44
[2020-08-31] VITALS (27 sets, daily range): BP systolic 86–140; BP diastolic 38–66
[2020-08-31] MEDS: INSULIN REGULAR, HUMAN 100 UNIT/1 ML 3ML VIAL SQ SCH ×5 (00:39→23:17)
[2020-08-31 06:09] LABS: BASOPHILS # (AUTO) 0.1 (0.0-0.1); BASOPHILS % 0.5 % (0.0-1.0); EOSINOPHILS # (AUTO) 0.3 (0.0-0.4); EOSINOPHILS % 2.8 % (0.0-6.0); HEMOGLOBIN 7.6 g/dL (12.0-16.0); LYMPHOCYTES # (AUTO) 1.7 (1.0-3.2); LYMPHOCYTES % 15.7 % (18.0-39.1); MEAN CORPUSCULAR HEMOGLOBIN 27.7 pg (28-32); MEAN CORPUSCULAR HGB CONC 28.1 g/dL (31-35); MEAN CORPUSCULAR VOLUME 98.5 fL (81-99); MONOCYTES # (AUTO) 0.8 (0.2-0.8); MONOCYTES % 7.7 % (4.4-11.3); NEUTROPHILS # (AUTO) 7.1 (2.1-6.9); NEUTROPHILS % 67.1 % (38.7-80.0); PLATELET COUNT 331 x10e3/uL (140-360); RED BLOOD COUNT 2.74 x10e6/uL (3.6-5.1); RED CELL DISTRIBUTION WIDTH 17.7 % (11.7-14.4)
[2020-08-31] MEDS: METOCLOPRAMIDE HCL 10 MG/2ML VIAL IV SCH ×3 (06:17→20:06)
[2020-08-31 06:42] LABS: ALBUMIN 1.8 g/dL (3.5-5.0); ALBUMIN/GLOBULIN RATIO 0.4 (0.8-2.0); ANION GAP 14.4 mmol/L (8-16); CALCIUM 8.6 mg/dL (8.4-10.2); CREATININE, SERUM 1.46 mg/dL (0.57-1.11); POTASSIUM 3.4 mmol/L (3.5-5.1)
[2020-08-31] MEDS ORDERED: POTASSIUM CHLORIDE 20MEQ/100ML 100 ML IV ONE (09:00)
[2020-08-31] MEDS ORDERED: SODIUM CHLORIDE 0.45% 500 ML IV ONE (09:00)
[2020-08-31] MEDS: CHLOROTHIAZIDE SODIUM 500 MG VIAL IV SCH (09:46)
[2020-08-31] MEDS: ENOXAPARIN SOD INJ 40 MG/0.4 ML SYR SC SCH ×2 (09:47→20:06)
[2020-08-31 10:36] LABS: LYMPHOCYTES % (MANUAL) 17 % (19-48); MONOCYTES % (MANUAL) 4 % (3.4-9.0); MYELOCYTES % (MANUAL) 3 % (0-0); NEUTROPHILS % (MANUAL) 76 % (40-74)
[2020-08-31 10:37] LABS: ANISOCYTOSIS SLIGHT; HYPOCHROMASIA SLIGHT; PLATELET ESTIMATE ADEQUATE; PLATELET MORPHOLOGY COMMENT FEW LARGE; RBC MORPHOLOGY COMMENT NORMAL
[2020-08-31] MEDS: FAMOTIDINE 20 MG TAB PO SCH (16:15)
[2020-08-31] MEDS: MEROPENEM 1GM 100 ML IV SCH (16:15)
[2020-09-01] VITALS (24 sets, daily range): BP systolic 89–110; BP diastolic 48–65
[2020-09-01] MEDS: MEROPENEM 1GM 100 ML IV SCH ×2 (03:05→17:59)
[2020-09-01] MEDS: METOCLOPRAMIDE HCL 10 MG/2ML VIAL IV SCH ×3 (05:03→21:10)
[2020-09-01] MEDS: INSULIN REGULAR, HUMAN 100 UNIT/1 ML 3ML VIAL SQ SCH ×3 (05:04→18:00)
[2020-09-01 06:09] LABS: BASOPHILS % 0.3 % (0.0-1.0); EOSINOPHILS # (AUTO) 0.5 (0.0-0.4); EOSINOPHILS % 5.4 % (0.0-6.0); HEMATOCRIT 25.3 % (34.2-44.1); HEMOGLOBIN 7.3 g/dL (12.0-16.0); LYMPHOCYTES # (AUTO) 1.4 (1.0-3.2); LYMPHOCYTES % 15.9 % (18.0-39.1); MEAN CORPUSCULAR HEMOGLOBIN 27.8 pg (28-32); MEAN CORPUSCULAR HGB CONC 28.9 g/dL (31-35); MEAN CORPUSCULAR VOLUME 96.2 fL (81-99); MONOCYTES # (AUTO) 0.6 (0.2-0.8); MONOCYTES % 6.8 % (4.4-11.3); NEUTROPHILS # (AUTO) 5.8 (2.1-6.9); NEUTROPHILS % 64.3 % (38.7-80.0); PLATELET COUNT 320 x10e3/uL (140-360); RED BLOOD COUNT 2.63 x10e6/uL (3.6-5.1); RED CELL DISTRIBUTION WIDTH 17.6 % (11.7-14.4)
[2020-09-01 06:27] LABS: ALBUMIN 1.6 g/dL (3.5-5.0); ALBUMIN/GLOBULIN RATIO 0.4 (0.8-2.0); ANION GAP 14.4 mmol/L (8-16); CALCIUM 7.9 mg/dL (8.4-10.2); CREATININE, SERUM 1.26 mg/dL (0.57-1.11); POTASSIUM 3.4 mmol/L (3.5-5.1)
[2020-09-01 07:35] LABS: EOSINOPHILS % (MANUAL) 4 % (0-7); HYPOCHROMASIA SLIGHT; LYMPHOCYTES % (MANUAL) 15 % (19-48); MONOCYTES % (MANUAL) 2 % (3.4-9.0); MYELOCYTES % (MANUAL) 3 % (0-0); NEUTROPHILS % (MANUAL) 73 % (40-74)
[2020-09-01 07:36] LABS: ANISOCYTOSIS SLIGHT; PLATELET ESTIMATE ADEQUATE; PLATELET MORPHOLOGY COMMENT NORMAL; RBC MORPHOLOGY COMMENT NORMAL
[2020-09-01] MEDS: CHLOROTHIAZIDE SODIUM 500 MG VIAL IV SCH (08:54)
[2020-09-01] MEDS: ENOXAPARIN SOD INJ 40 MG/0.4 ML SYR SC SCH ×2 (08:54→18:29)
[2020-09-01] MEDS: FAMOTIDINE 20 MG TAB PO SCH ×2 (08:54→16:23)
[2020-09-01] MEDS ORDERED: SODIUM CHLORIDE 0.9% 250ML 250 ML IV ONE (12:30)
[2020-09-01] MEDS ORDERED: FUROSEMIDE INJ 10 MG/ML 4 ML VIAL IV ONE (12:30)
[2020-09-01] MEDS ORDERED: ACETAMINOPHEN 325 MG TAB PO ONE (13:00)
[2020-09-01] MEDS ORDERED: POTASSIUM CHLORIDE 20MEQ/15ML UDC NG ONE (16:00)
[2020-09-01] MEDS ORDERED: KCL 20 MEQ PACKET/ ORAL SOLN NG ONE (16:30)
== END 2020-09-01 23:00 | DRG 4 ==
LOC: ER 17:26 → ERHOLD 21:22 → MED/SURG3 21:26 → IMCU 07-08 22:00 → COVIDICU 07-14 20:24
PROVIDERS: ADMIT Internal Medicine; ATTEND Internal Medicine
PROC: 0BC17ZZ Extirpation of Matter from Trachea, Via Natural or Artificial Opening (ICD-10-PCS; 2020-07-05)
PROC: 8E0ZXY6 Isolation (ICD-10-PCS; 2020-07-05)
PROC: XW043E5 Introduction of Remdesivir Anti-infective into Central Vein, Percutaneous Approach, New Technology Group 5 (ICD-10-PCS; 2020-07-05)
PROC: 02HV33Z Insertion of Infusion Device into Superior Vena Cava, Percutaneous Approach (ICD-10-PCS; 2020-07-08)
PROC: 5A1955Z Respiratory Ventilation, Greater than 96 Consecutive Hours (ICD-10-PCS; 2020-07-14)
PROC: 0BH18EZ Insertion of Endotracheal Airway into Trachea, Via Natural or Artificial Opening Endoscopic (ICD-10-PCS; 2020-07-14)
PROC: 02HV33Z Insertion of Infusion Device into Superior Vena Cava, Percutaneous Approach (ICD-10-PCS; 2020-07-17)
PROC: 30243N1 Transfusion of Nonautologous Red Blood Cells into Central Vein, Percutaneous Approach (ICD-10-PCS; 2020-08-02)
PROC: 0DH68UZ Insertion of Feeding Device into Stomach, Via Natural or Artificial Opening Endoscopic (ICD-10-PCS; 2020-08-10)
PROC: 0B110F4 Bypass Trachea to Cutaneous with Tracheostomy Device, Open Approach (ICD-10-PCS; principal; 2020-08-10 14:00)
PROC: 05HY33Z Insertion of Infusion Device into Upper Vein, Percutaneous Approach (ICD-10-PCS; 2020-08-16)
PROC: 0BP Respiratory System, Removal (ICD-10-PCS; 2020-08-31)
DX: A41.2 Sepsis due to unspecified staphylococcus (principal); U07.1 COVID-19; J12.82 Pneumonia due to coronavirus disease 2019; J69.0 Pneumonitis due to inhalation of food and vomit; R65.21 Severe sepsis with septic shock; I21.9 Acute myocardial infarction, unspecified; J96.01 Acute respiratory failure with hypoxia; G93.41 Metabolic encephalopathy; E43 Unspecified severe protein-calorie malnutrition; I21.4 Non-ST elevation (NSTEMI) myocardial infarction; E87.1 Hypo-osmolality and hyponatremia; E87.2 Acidosis; R04.89 Hemorrhage from other sites in respiratory passages; Z68.43 Body mass index [BMI] 50.0-59.9, adult; J95.01 Hemorrhage from tracheostomy stoma; E87.0 Hyperosmolality and hypernatremia; N17.9 Acute kidney failure, unspecified; E87.3 Alkalosis; E66.01 Morbid (severe) obesity due to excess calories; D69.6 Thrombocytopenia, unspecified; R74.01 Elevation of levels of liver transaminase levels; E87.6 Hypokalemia; D50.0 Iron deficiency anemia secondary to blood loss (chronic); E11.9 Type 2 diabetes mellitus without complications; E87.5 Hyperkalemia; E88.09 Other disorders of plasma-protein metabolism, not elsewhere classified; M19.90 Unspecified osteoarthritis, unspecified site
CPT/HCPCS: 31500; 36415; 36569; 36600; 70450; 71045; 71260; 74018; 74177; 74230; 76700; 76705; 80048; 80053; 80202; 81001; 81050; 82140; 82150; 82248; 82270; 82550; 82553; 82728; 82746; 82805; 82948; 83010; 83540; 83615; 83690; 83735; 83880; 84100; 84134; 84155; 84156; 84466; 84478; 84484; 84630; 85007; 85014; 85018; 85025; 85027; 85045; 85379; 85384; 85610; 85730; 86022; 86850; 86900; 86920; 87040; 87070; 87071; 87205; 93005; 93306; 93970; 93971; 94002; 94003; 96361; 96366; 96367; 96372; 97139; 99251; 99284; J0171; J0330; J0456; J0692; J1100; J1650; J1652; J1817; J1940; J2185; J2250; J2405; J2765; J2930; J3370; J3480; J7030; J7050; J7070; J7121; P9016; P9047; Q9967; U0002

== ENCOUNTER 2020-11-17 11:32 | Inpatient (IN) | payer BC ==
[2020-11-17] VITALS (11 sets, daily range): BP systolic 85–113; BP diastolic 51–84
[~2020-11-17] VITALS: Ht 160 cm; Wt 115.7 kg
[~2020-11-17 11:32] MED LIST: CITALOPRAM HBR20 MG PO; DECADRON4 M1 PO; LASIX20 MG PEG; LISINOPRIL-HCT1 EACH PO; PANTOPRAZOLE SO40 MG PO; SINGULAIR10 MG PO
[2020-11-17] MEDS ORDERED: CEFTRIAXONE 1 GM VIAL IV SCH (14:15)
[2020-11-17] MEDS ORDERED: DEXTROSE 50% SYRINGE 50 ML IV PRN (14:15)
[2020-11-17 14:35] LABS: BASOPHILS % 0.1 % (0.0-1.0); HEMATOCRIT 33.5 % (34.2-44.1); HEMOGLOBIN 10.3 g/dL (12.0-16.0); LYMPHOCYTES # (AUTO) 1.2 (1.0-3.2); MEAN CORPUSCULAR HEMOGLOBIN 28.2 pg (28-32); MEAN CORPUSCULAR HGB CONC 30.7 g/dL (31-35); MEAN CORPUSCULAR VOLUME 91.8 fL (81-99); MONOCYTES # (AUTO) 0.1 (0.2-0.8); MONOCYTES % 0.9 % (4.4-11.3); NEUTROPHILS # (AUTO) 7.9 (2.1-6.9); NEUTROPHILS % 85.4 % (38.7-80.0); PLATELET COUNT 356 x10e3/uL (140-360); RED BLOOD COUNT 3.65 x10e6/uL (3.6-5.1); RED CELL DISTRIBUTION WIDTH 13.8 % (11.7-14.4)
[2020-11-17] MEDS: CEFTRIAXONE 1 GM in SODIUM CHLORIDE 0.9% 50ML 50 ML IV SCH (14:50)
[2020-11-17] MEDS ORDERED: SODIUM CHLORIDE 0.9% 250ML 250 ML ONE (14:58)
[2020-11-17 15:07] LABS: ALANINE AMINOTRANSFERASE 55 IU/L (0-55); ALBUMIN 3.1 g/dL (3.5-5.0); ALBUMIN/GLOBULIN RATIO 0.7 (0.8-2.0); ALKALINE PHOSPHATASE 152 IU/L (40-150); ANION GAP 15.6 mmol/L (8-16); BLOOD UREA NITROGEN 31 mg/dL (7-26); BUN/CREATININE RATIO 39 (6-25); CARBON DIOXIDE 24 mmol/L (22-29); CHLORIDE 105 mmol/L (98-107); CREATININE, SERUM 0.79 mg/dL (0.57-1.11); EST GLOMERULAR FILTRATION RATE > 60 ML/MIN (60-); GLUCOSE 178 mg/dL (74-118); POTASSIUM 4.6 mmol/L (3.5-5.1); SODIUM 140 mmol/L (136-145)
[2020-11-17] MEDS: INSULIN LISPRO 100 UNIT/1 ML 3ML VIAL SQ SCH ×2 (15:49→21:13)
[2020-11-17] MEDS ORDERED: FAMOTIDINE20 MG PEG (15:51)
[2020-11-17] MEDS ORDERED: QUESTRAN PACKET4 GM PEG (15:51)
[2020-11-17] MEDS ORDERED: KLOR-CON20 MEQ PEG (15:52)
[2020-11-17] MEDS ORDERED: MESTINON60 MG PEG (15:53)
[2020-11-17] MEDS ORDERED: ULTRAM50 MG PEG (15:55)
[2020-11-17] MEDS ORDERED: VITAMIN D310 MCG PEG (15:58)
[2020-11-17] MEDS ORDERED: ONDANSETRON HCL INJ 2MG/ML 2ML 2 MG/ML VIAL IV PRN (16:30)
[2020-11-17] MEDS ORDERED: ACETAMINOPHEN 325 MG/10 ML UDC PEG PRN (16:30)
[2020-11-17] MEDS: ENOXAPARIN SOD INJ 40 MG/0.4 ML SYR SC SCH (17:08)
[2020-11-17] MEDS: FAMOTIDINE 20 MG TAB PEG SCH (17:08)
[2020-11-17] MEDS ORDERED: ZOLPIDEM TARTRATE 5 MG TAB PEG PRN (21:00)
[2020-11-17] MEDS ORDERED: DEXMEDETOMIDINE 200MCG/NS 50ML 50 ML IV ONE (23:36)
[2020-11-18] VITALS (28 sets, daily range): BP systolic 82–119; BP diastolic 47–73
[2020-11-18 06:07] LABS: BASOPHILS % 0.3 % (0.0-1.0); EOSINOPHILS % 0.4 % (0.0-6.0); HEMATOCRIT 33.9 % (34.2-44.1); HEMOGLOBIN 10.4 g/dL (12.0-16.0); LYMPHOCYTES # (AUTO) 2.2 (1.0-3.2); MEAN CORPUSCULAR HEMOGLOBIN 28.1 pg (28-32); MEAN CORPUSCULAR HGB CONC 30.7 g/dL (31-35); MEAN CORPUSCULAR VOLUME 91.6 fL (81-99); MONOCYTES % 9.2 % (4.4-11.3); NEUTROPHILS # (AUTO) 7.1 (2.1-6.9); NEUTROPHILS % 68.3 % (38.7-80.0); PLATELET COUNT 340 x10e3/uL (140-360); RED CELL DISTRIBUTION WIDTH 13.7 % (11.7-14.4)
[2020-11-18 06:40] LABS: ALANINE AMINOTRANSFERASE 50 IU/L (0-55); ALBUMIN 2.9 g/dL (3.5-5.0); ALBUMIN/GLOBULIN RATIO 0.7 (0.8-2.0); ALKALINE PHOSPHATASE 132 IU/L (40-150); ANION GAP 15.9 mmol/L (8-16); BLOOD UREA NITROGEN 34 mg/dL (7-26); BUN/CREATININE RATIO 49 (6-25); CALCIUM 10.5 mg/dL (8.4-10.2); CARBON DIOXIDE 26 mmol/L (22-29); CHLORIDE 104 mmol/L (98-107); EST GLOMERULAR FILTRATION RATE > 60 ML/MIN (60-); GLUCOSE 147 mg/dL (74-118); POTASSIUM 3.9 mmol/L (3.5-5.1); SODIUM 142 mmol/L (136-145)
[2020-11-18] MEDS: INSULIN LISPRO 100 UNIT/1 ML 3ML VIAL SQ SCH ×4 (07:28→21:00)
[2020-11-18] MEDS: FAMOTIDINE 20 MG TAB PEG SCH ×2 (09:24→16:15)
[2020-11-18] MEDS: CEFTRIAXONE 1 GM in SODIUM CHLORIDE 0.9% 50ML 50 ML IV SCH (14:34)
[2020-11-18] MEDS: ENOXAPARIN SOD INJ 40 MG/0.4 ML SYR SC SCH (16:15)
[2020-11-19] VITALS (26 sets, daily range): BP systolic 96–120; BP diastolic 49–76
[2020-11-19] MEDS: INSULIN LISPRO 100 UNIT/1 ML 3ML VIAL SQ SCH ×4 (07:30→21:00)
[2020-11-19] MEDS: FAMOTIDINE 20 MG TAB PEG SCH ×2 (08:06→16:27)
[2020-11-19] MEDS ORDERED: BISACODYL 5 MG TAB EC PO ONE (11:00)
[2020-11-19 11:54] LABS: BASOPHILS % 0.5 % (0.0-1.0); EOSINOPHILS # (AUTO) 0.4 (0.0-0.4); EOSINOPHILS % 4.7 % (0.0-6.0); HEMATOCRIT 32.5 % (34.2-44.1); HEMOGLOBIN 9.9 g/dL (12.0-16.0); LYMPHOCYTES # (AUTO) 2.5 (1.0-3.2); LYMPHOCYTES % 28.4 % (18.0-39.1); MEAN CORPUSCULAR HEMOGLOBIN 28.5 pg (28-32); MEAN CORPUSCULAR HGB CONC 30.5 g/dL (31-35); MEAN CORPUSCULAR VOLUME 93.7 fL (81-99); MONOCYTES # (AUTO) 0.9 (0.2-0.8); MONOCYTES % 9.9 % (4.4-11.3); NEUTROPHILS % 55.9 % (38.7-80.0); PLATELET COUNT 318 x10e3/uL (140-360); RED BLOOD COUNT 3.47 x10e6/uL (3.6-5.1); RED CELL DISTRIBUTION WIDTH 14.2 % (11.7-14.4)
[2020-11-19 12:21] LABS: ALANINE AMINOTRANSFERASE 41 IU/L (0-55); ALBUMIN 2.8 g/dL (3.5-5.0); ALBUMIN/GLOBULIN RATIO 0.7 (0.8-2.0); ALKALINE PHOSPHATASE 113 IU/L (40-150); ANION GAP 13.8 mmol/L (8-16); BLOOD UREA NITROGEN 33 mg/dL (7-26); BUN/CREATININE RATIO 52 (6-25); CALCIUM 10.2 mg/dL (8.4-10.2); CARBON DIOXIDE 29 mmol/L (22-29); CHLORIDE 105 mmol/L (98-107); CREATININE, SERUM 0.63 mg/dL (0.57-1.11); EST GLOMERULAR FILTRATION RATE > 60 ML/MIN (60-); GLUCOSE 131 mg/dL (74-118); POTASSIUM 3.8 mmol/L (3.5-5.1); SODIUM 144 mmol/L (136-145)
[2020-11-19] MEDS: CEFTRIAXONE 1 GM in SODIUM CHLORIDE 0.9% 50ML 50 ML IV SCH (14:57)
[2020-11-19] MEDS: ENOXAPARIN SOD INJ 40 MG/0.4 ML SYR SC SCH (16:27)
[2020-11-20] VITALS (19 sets, daily range): BP systolic 100–126; BP diastolic 55–90
[2020-11-20] MEDS: INSULIN LISPRO 100 UNIT/1 ML 3ML VIAL SQ SCH ×4 (07:20→21:00)
[2020-11-20] MEDS: FAMOTIDINE 20 MG TAB PEG SCH ×2 (08:05→19:03)
[2020-11-20] MEDS: CEFTRIAXONE 1 GM in SODIUM CHLORIDE 0.9% 50ML 50 ML IV SCH (14:40)
[2020-11-20] MEDS: ENOXAPARIN SOD INJ 40 MG/0.4 ML SYR SC SCH (19:03)
[2020-11-21] VITALS (8 sets, daily range): BP systolic 84–125; BP diastolic 44–81
[2020-11-21] MEDS: INSULIN LISPRO 100 UNIT/1 ML 3ML VIAL SQ SCH ×4 (07:30→21:00)
[2020-11-21] MEDS: FAMOTIDINE 20 MG TAB PEG SCH ×2 (08:23→16:23)
[2020-11-21] MEDS: BALSAM PERU/CASTOR OIL 60 GM OINT...G. TP SCH (09:06)
[2020-11-21] MEDS: CEFTRIAXONE 1 GM in SODIUM CHLORIDE 0.9% 50ML 50 ML IV SCH (16:23)
[2020-11-21] MEDS: ENOXAPARIN SOD INJ 40 MG/0.4 ML SYR SC SCH (16:23)
[2020-11-22] VITALS (9 sets, daily range): BP systolic 92–122; BP diastolic 40–76
[2020-11-22 05:37] LABS: BASOPHILS % 0.2 % (0.0-1.0); EOSINOPHILS # (AUTO) 0.5 (0.0-0.4); EOSINOPHILS % 5.6 % (0.0-6.0); HEMOGLOBIN 10.1 g/dL (12.0-16.0); LYMPHOCYTES # (AUTO) 2.5 (1.0-3.2); LYMPHOCYTES % 27.8 % (18.0-39.1); MEAN CORPUSCULAR HEMOGLOBIN 28.5 pg (28-32); MEAN CORPUSCULAR HGB CONC 30.6 g/dL (31-35); MEAN CORPUSCULAR VOLUME 93.2 fL (81-99); MONOCYTES # (AUTO) 0.7 (0.2-0.8); MONOCYTES % 7.3 % (4.4-11.3); NEUTROPHILS # (AUTO) 5.3 (2.1-6.9); NEUTROPHILS % 57.9 % (38.7-80.0); PLATELET COUNT 304 x10e3/uL (140-360); RED BLOOD COUNT 3.54 x10e6/uL (3.6-5.1)
[2020-11-22 06:15] LABS: ALANINE AMINOTRANSFERASE 27 IU/L (0-55); ALBUMIN 2.9 g/dL (3.5-5.0); ALBUMIN/GLOBULIN RATIO 0.8 (0.8-2.0); ALKALINE PHOSPHATASE 123 IU/L (40-150); BLOOD UREA NITROGEN 25 mg/dL (7-26); BUN/CREATININE RATIO 42 (6-25); CARBON DIOXIDE 30 mmol/L (22-29); CHLORIDE 101 mmol/L (98-107); CREATININE, SERUM 0.59 mg/dL (0.57-1.11); EST GLOMERULAR FILTRATION RATE > 60 ML/MIN (60-); GLUCOSE 125 mg/dL (74-118); SODIUM 141 mmol/L (136-145)
[2020-11-22] MEDS: INSULIN LISPRO 100 UNIT/1 ML 3ML VIAL SQ SCH ×4 (07:30→20:51)
[2020-11-22] MEDS: FAMOTIDINE 20 MG TAB PEG SCH ×2 (09:28→17:00)
[2020-11-22] MEDS: BALSAM PERU/CASTOR OIL 60 GM OINT...G. TP SCH (10:14)
[2020-11-22] MEDS: CEFTRIAXONE 1 GM in SODIUM CHLORIDE 0.9% 50ML 50 ML IV SCH (14:30)
[2020-11-22] MEDS ORDERED: SODIUM CHLORIDE 0.9% 250ML 250 ML ONE (14:43)
[2020-11-22] MEDS: ENOXAPARIN SOD INJ 40 MG/0.4 ML SYR SC SCH (17:43)
[2020-11-23] VITALS (8 sets, daily range): BP systolic 100–158; BP diastolic 51–85
[2020-11-23] MEDS: INSULIN LISPRO 100 UNIT/1 ML 3ML VIAL SQ SCH ×4 (07:30→21:00)
[2020-11-23] MEDS: BALSAM PERU/CASTOR OIL 60 GM OINT...G. TP SCH (09:00)
[2020-11-23] MEDS: FAMOTIDINE 20 MG TAB PEG SCH ×2 (09:23→16:56)
[2020-11-23] MEDS: CEFTRIAXONE 1 GM in SODIUM CHLORIDE 0.9% 50ML 50 ML IV SCH (14:30)
[2020-11-23] MEDS: ENOXAPARIN SOD INJ 40 MG/0.4 ML SYR SC SCH (16:56)
[2020-11-24] VITALS (8 sets, daily range): BP systolic 88–122; BP diastolic 46–66
[2020-11-24 05:37] LABS: INR 0.91; PROTHROMBIN TIME 12.8 seconds (11.9-14.5)
[2020-11-24 05:43] LABS: % IRON SATURATION 14 % (15-50); IRON 41 ug/dL (50-170); TOTAL IRON BINDING CAPACITY 290 ug/dL (261-478); TRANSFERRIN 207 mg/dL (180-382)
[2020-11-24] MEDS: INSULIN LISPRO 100 UNIT/1 ML 3ML VIAL SQ SCH ×4 (07:30→21:00)
[2020-11-24] MEDS: FAMOTIDINE 20 MG TAB PEG SCH ×2 (09:00→16:42)
[2020-11-24] MEDS: BALSAM PERU/CASTOR OIL 60 GM OINT...G. TP SCH (09:05)
[2020-11-24] MEDS: DICLOFENAC SOD 1% GEL 100 GM TUBE TP SCH ×3 (12:55→21:00)
[2020-11-24] MEDS ORDERED: PROPOFOL IV EMULSION 10 MG/ML 20 ML VIAL ONE (13:04)
[2020-11-24] MEDS ORDERED: LIDOCAINE HCL 2% LOCAL INJ 5 ML SDV VIAL INJ ONE (13:04)
[2020-11-24] MEDS ORDERED: FENTANYL CITRATE/PF 100MCG/2 ML INJ ONE (13:50)
[2020-11-24] MEDS: CEFTRIAXONE 1 GM in SODIUM CHLORIDE 0.9% 50ML 50 ML IV SCH (15:50)
[2020-11-25] VITALS (8 sets, daily range): BP systolic 92–118; BP diastolic 48–91
[2020-11-25 05:53] LABS: BASOPHILS % 0.2 % (0.0-1.0); EOSINOPHILS # (AUTO) 0.4 (0.0-0.4); EOSINOPHILS % 4.3 % (0.0-6.0); HEMATOCRIT 32.3 % (34.2-44.1); LYMPHOCYTES # (AUTO) 1.9 (1.0-3.2); MEAN CORPUSCULAR HEMOGLOBIN 28.4 pg (28-32); MEAN CORPUSCULAR VOLUME 91.8 fL (81-99); MONOCYTES # (AUTO) 0.5 (0.2-0.8); MONOCYTES % 6.2 % (4.4-11.3); NEUTROPHILS # (AUTO) 5.8 (2.1-6.9); NEUTROPHILS % 66.6 % (38.7-80.0); PLATELET COUNT 327 x10e3/uL (140-360); RED BLOOD COUNT 3.52 x10e6/uL (3.6-5.1); RED CELL DISTRIBUTION WIDTH 14.1 % (11.7-14.4)
[2020-11-25 06:18] LABS: ALANINE AMINOTRANSFERASE 34 IU/L (0-55); ALBUMIN/GLOBULIN RATIO 0.8 (0.8-2.0); ALKALINE PHOSPHATASE 111 IU/L (40-150); BLOOD UREA NITROGEN 18 mg/dL (7-26); BUN/CREATININE RATIO 30 (6-25); CALCIUM 10.4 mg/dL (8.4-10.2); CARBON DIOXIDE 25 mmol/L (22-29); CHLORIDE 103 mmol/L (98-107); EST GLOMERULAR FILTRATION RATE > 60 ML/MIN (60-); GLUCOSE 124 mg/dL (74-118); SODIUM 139 mmol/L (136-145)
[2020-11-25] MEDS: INSULIN LISPRO 100 UNIT/1 ML 3ML VIAL SQ SCH ×4 (07:30→20:44)
[2020-11-25] MEDS: DICLOFENAC SOD 1% GEL 100 GM TUBE TP SCH ×3 (08:40→20:00)
[2020-11-25] MEDS: BALSAM PERU/CASTOR OIL 60 GM OINT...G. TP SCH (08:40)
[2020-11-25] MEDS: FAMOTIDINE 20 MG TAB PEG SCH ×2 (08:40→17:46)
[2020-11-25] MEDS: CEFTRIAXONE 1 GM in SODIUM CHLORIDE 0.9% 50ML 50 ML IV SCH (14:30)
[2020-11-25] MEDS ORDERED: BISACODYL 5 MG TAB EC PO PRN (17:45)
[2020-11-26] VITALS (10 sets, daily range): BP systolic 97–118; BP diastolic 38–71
[2020-11-26] MEDS: INSULIN LISPRO 100 UNIT/1 ML 3ML VIAL SQ SCH ×4 (07:30→20:08)
[2020-11-26] MEDS: FAMOTIDINE 20 MG TAB PEG SCH ×2 (09:00→16:31)
[2020-11-26] MEDS: DICLOFENAC SOD 1% GEL 100 GM TUBE TP SCH ×3 (09:33→20:00)
[2020-11-26] MEDS: BALSAM PERU/CASTOR OIL 60 GM OINT...G. TP SCH (09:33)
[2020-11-26] MEDS: IRON SUCROSE 100 MG in SODIUM CHLORIDE 0.9% 100 ML 100 ML IV SCH (10:30)
[2020-11-26] MEDS: CEFTRIAXONE 1 GM in SODIUM CHLORIDE 0.9% 50ML 50 ML IV SCH (15:07)
[2020-11-27] VITALS (7 sets, daily range): BP systolic 93–119; BP diastolic 46–65
[2020-11-27] MEDS: INSULIN LISPRO 100 UNIT/1 ML 3ML VIAL SQ SCH ×4 (07:30→20:28)
[2020-11-27] MEDS: FAMOTIDINE 20 MG TAB PEG SCH ×2 (08:26→17:04)
[2020-11-27] MEDS: BALSAM PERU/CASTOR OIL 60 GM OINT...G. TP SCH (08:26)
[2020-11-27] MEDS: DICLOFENAC SOD 1% GEL 100 GM TUBE TP SCH ×3 (08:26→20:28)
[2020-11-27] MEDS: IRON SUCROSE 100 MG in SODIUM CHLORIDE 0.9% 100 ML 100 ML IV SCH (08:26)
[2020-11-28] VITALS (8 sets, daily range): BP systolic 102–114; BP diastolic 58–70
[2020-11-28] MEDS: INSULIN LISPRO 100 UNIT/1 ML 3ML VIAL SQ SCH ×4 (07:30→20:58)
[2020-11-28] MEDS: FAMOTIDINE 20 MG TAB PEG SCH ×2 (08:42→17:10)
[2020-11-28] MEDS: BALSAM PERU/CASTOR OIL 60 GM OINT...G. TP SCH (08:42)
[2020-11-28] MEDS: DICLOFENAC SOD 1% GEL 100 GM TUBE TP SCH ×3 (08:43→20:45)
[2020-11-28] MEDS: IRON SUCROSE 100 MG in SODIUM CHLORIDE 0.9% 100 ML 100 ML IV SCH (08:47)
[2020-11-29] VITALS (8 sets, daily range): BP systolic 98–121; BP diastolic 51–71
[2020-11-29 04:47] LABS: BASOPHILS % 0.4 % (0.0-1.0); EOSINOPHILS # (AUTO) 0.4 (0.0-0.4); EOSINOPHILS % 5.1 % (0.0-6.0); HEMATOCRIT 32.5 % (34.2-44.1); HEMOGLOBIN 9.9 g/dL (12.0-16.0); LYMPHOCYTES % 25.2 % (18.0-39.1); MEAN CORPUSCULAR HEMOGLOBIN 27.8 pg (28-32); MEAN CORPUSCULAR HGB CONC 30.5 g/dL (31-35); MEAN CORPUSCULAR VOLUME 91.3 fL (81-99); MONOCYTES # (AUTO) 0.5 (0.2-0.8); MONOCYTES % 6.6 % (4.4-11.3); NEUTROPHILS # (AUTO) 4.9 (2.1-6.9); NEUTROPHILS % 61.9 % (38.7-80.0); PLATELET COUNT 317 x10e3/uL (140-360); RED BLOOD COUNT 3.56 x10e6/uL (3.6-5.1); RED CELL DISTRIBUTION WIDTH 13.8 % (11.7-14.4)
[2020-11-29 05:12] LABS: ALANINE AMINOTRANSFERASE 34 IU/L (0-55); ALBUMIN 2.8 g/dL (3.5-5.0); ALBUMIN/GLOBULIN RATIO 0.8 (0.8-2.0); ALKALINE PHOSPHATASE 100 IU/L (40-150); ANION GAP 12.7 mmol/L (8-16); BLOOD UREA NITROGEN 11 mg/dL (7-26); BUN/CREATININE RATIO 16 (6-25); CALCIUM 10.2 mg/dL (8.4-10.2); CARBON DIOXIDE 26 mmol/L (22-29); CHLORIDE 104 mmol/L (98-107); CREATININE, SERUM 0.68 mg/dL (0.57-1.11); EST GLOMERULAR FILTRATION RATE > 60 ML/MIN (60-); GLUCOSE 110 mg/dL (74-118); POTASSIUM 3.7 mmol/L (3.5-5.1); SODIUM 139 mmol/L (136-145)
[2020-11-29] MEDS: INSULIN LISPRO 100 UNIT/1 ML 3ML VIAL SQ SCH ×4 (07:30→20:40)
[2020-11-29] MEDS: FAMOTIDINE 20 MG TAB PEG SCH ×2 (08:58→16:26)
[2020-11-29] MEDS: DICLOFENAC SOD 1% GEL 100 GM TUBE TP SCH ×3 (09:01→20:44)
[2020-11-29] MEDS: BALSAM PERU/CASTOR OIL 60 GM OINT...G. TP SCH (09:10)
[2020-11-29] MEDS ORDERED: FUROSEMIDE INJ 10 MG/ML 2 ML VIAL IV ONE (10:30)
[2020-11-29] MEDS: IRON SUCROSE 100 MG in SODIUM CHLORIDE 0.9% 100 ML 100 ML IV SCH (11:14)
[2020-11-29] MEDS ORDERED: ONDANSETRON HCL 4 MG ORAL DISINTEGRATING TAB PO PRN (12:45)
[2020-11-30] VITALS (7 sets, daily range): BP systolic 109–123; BP diastolic 41–70
[2020-11-30] MEDS: INSULIN LISPRO 100 UNIT/1 ML 3ML VIAL SQ SCH ×3 (07:30→16:30)
[2020-11-30] MEDS: FAMOTIDINE 20 MG TAB PEG SCH ×2 (08:43→17:18)
[2020-11-30] MEDS: DICLOFENAC SOD 1% GEL 100 GM TUBE TP SCH ×2 (08:47→17:18)
[2020-11-30] MEDS: BALSAM PERU/CASTOR OIL 60 GM OINT...G. TP SCH (08:56)
[2020-11-30] MEDS: IRON SUCROSE 100 MG in SODIUM CHLORIDE 0.9% 100 ML 100 ML IV SCH (09:01)
== END 2020-11-30 21:20 | DRG 208 ==
LOC: ICU 13:50 → MED/SURG3 11-20 14:40
PROVIDERS: ADMIT Internal Medicine; ATTEND Internal Medicine
PROC: 5A1935Z Respiratory Ventilation, Less than 24 Consecutive Hours (ICD-10-PCS; principal; 2020-11-17)
PROC: 0DB78ZX Excision of Stomach, Pylorus, Via Natural or Artificial Opening Endoscopic, Diagnostic (ICD-10-PCS; 2020-11-24)
PROC: 0DH68UZ Insertion of Feeding Device into Stomach, Via Natural or Artificial Opening Endoscopic (ICD-10-PCS; 2020-11-24)
DX: J96.11 Chronic respiratory failure with hypoxia (principal); R53.2 Functional quadriplegia; E44.0 Moderate protein-calorie malnutrition; N17.9 Acute kidney failure, unspecified; Z68.42 Body mass index [BMI] 45.0-49.9, adult; R62.7 Adult failure to thrive; Z99.81 Dependence on supplemental oxygen; Z93.0 Tracheostomy status; K44.9 Diaphragmatic hernia without obstruction or gangrene; K20.90 Esophagitis, unspecified without bleeding; K21.9 Gastro-esophageal reflux disease without esophagitis; D50.9 Iron deficiency anemia, unspecified; Z86.16 Personal history of COVID-19; M54.12 Radiculopathy, cervical region; Z20.822 Contact with and (suspected) exposure to COVID-19
CPT/HCPCS: 36415; 43239; 71045; 71046; 74230; 80053; 82607; 82746; 82948; 83540; 84466; 85025; 85045; 85610; 88305; 88312; 93306; 94002; 97139; 99251; J0696; J1650; J1756; J1940; J2001; J3010; J7050; U0002

== ENCOUNTER 2024-02-15 11:47 | Emergency (ER) | payer BC, MEDICARE ==
[~2024-02-15] VITALS: Ht 160 cm; Wt 130.4 kg
[~2024-02-15 11:47] MED LIST changes: +FAMOTIDINE20 MG PEG; +KLOR-CON20 MEQ PEG; +MESTINON60 MG PEG; +QUESTRAN PACKET4 GM PEG; +ULTRAM50 MG PEG; +VITAMIN D310 MCG PEG
[2024-02-15] MEDS ORDERED: ASPIRIN EC81 MG PO (12:08)
[2024-02-15] MEDS ORDERED: ENTRESTO 24 MG1 EACH (12:08)
[2024-02-15] MEDS ORDERED: LYRICA100 MG PO (12:08)
[2024-02-15] MEDS ORDERED: METOPROLOL SUCC25 MG PO (12:08)
[2024-02-15] MEDS ORDERED: ATORVASTATIN CA20 MG PO (12:08)
[2024-02-15] MEDS ORDERED: FAMOTIDINE20 MG PO (12:08)
[2024-02-15] MEDS ORDERED: HYDROCODONE/APAP 5MG-325MG TAB PO ONE (12:45)
[2024-02-15] MEDS ORDERED: TRAMADOL HCL 50 MG TAB ONE (13:26)
[2024-02-15] MEDS: TRAMADOL HCL 50 MG TAB PO ONE ×2 (13:49)
[2024-02-15] MEDS ORDERED: CYCLOBENZAPRINE5 MG PO (15:36)
[2024-02-15 15:38] VITALS: PULSE 58; RESP 18; TEMP 97.9; O2SAT 94
[2024-02-15] MEDS ORDERED: ACETAMINOPHEN-1 EAC3 PO (15:43)
== END 2024-02-15 15:56 | disposition home or self-care (01) ==
LOC: FSED 11:55
DX: M54.50 Low back pain, unspecified (principal); M25.552 Pain in left hip; X50.1XXA Overexertion from prolonged static or awkward postures, initial encounter; Y92.89 Other specified places as the place of occurrence of the external cause; K57.90 Diverticulosis of intestine, part unspecified, without perforation or abscess without bleeding; I10 Essential (primary) hypertension; E11.9 Type 2 diabetes mellitus without complications; I25.10 Atherosclerotic heart disease of native coronary artery without angina pectoris; E78.5 Hyperlipidemia, unspecified; E66.01 Morbid (severe) obesity due to excess calories; F41.9 Anxiety disorder, unspecified; F32.A Depression, unspecified; Z96.653 Presence of artificial knee joint, bilateral
CPT/HCPCS: 72131; 99284

== ENCOUNTER → 2024-02-20 | Outpatient (REF) | payer MEDICARE ==
[~2024-02-20] MED LIST changes: +ACETAMINOPHEN-1 EAC3 PO; +ASPIRIN EC81 MG PO; +ATORVASTATIN CA20 MG PO; +CYCLOBENZAPRINE5 MG PO; +ENTRESTO 24 MG1 EACH; +FAMOTIDINE20 MG PO; +LYRICA100 MG PO; +METOPROLOL SUCC25 MG PO
== END ==
LOC: MRI 09:39
PROVIDERS: ATTEND Internal Medicine
DX: M54.50 Low back pain, unspecified (principal)
CPT/HCPCS: 72148

== ENCOUNTER → 2024-04-20 | Outpatient (REF) | payer MEDICARE | LOC: RESP 08:00 → EDSTATUS 11:00 | PROVIDERS: ATTEND Internal Medicine Cardiovascular Disease | DX: R06.02 Shortness of breath (principal); I50.9 Heart failure, unspecified; Z86.16 Personal history of COVID-19 | CPT/HCPCS: 71046; 94060; 94727; 94729 ==

== ENCOUNTER → 2024-07-12 | Outpatient (REF) | payer MEDICARE | LOC: CT 12:03 | PROVIDERS: ATTEND Nurse Practitioner Family | DX: R06.02 Shortness of breath (principal); I50.9 Heart failure, unspecified; G47.10 Hypersomnia, unspecified; G47.33 Obstructive sleep apnea (adult) (pediatric); J84.9 Interstitial pulmonary disease, unspecified; Z68.41 Body mass index [BMI] 40.0-44.9, adult; R91.8 Other nonspecific abnormal finding of lung field; G47.61 Periodic limb movement disorder; Z86.16 Personal history of COVID-19 | CPT/HCPCS: 71250 ==

== ENCOUNTER → 2024-12-27 | Outpatient (REF) | payer MEDICARE | LOC: RAD 15:23 | PROVIDERS: ATTEND Internal Medicine Critical Care Medicine | DX: R06.02 Shortness of breath (principal); I50.9 Heart failure, unspecified; J47.9 Bronchiectasis, uncomplicated; G47.10 Hypersomnia, unspecified; R91.8 Other nonspecific abnormal finding of lung field; J84.9 Interstitial pulmonary disease, unspecified; G47.33 Obstructive sleep apnea (adult) (pediatric); G47.61 Periodic limb movement disorder; Z68.41 Body mass index [BMI] 40.0-44.9, adult; Z86.16 Personal history of COVID-19 | CPT/HCPCS: 71046 ==